=== PATIENT | male | born 1955 | race Caucasian/White ===

== ENCOUNTER 2016-03-08 11:19 | Emergency (ER) | payer MEDICAID, MEDICARE ==
[~2016-03-08] VITALS: Ht 167.6 cm; Wt 123.4 kg
[~2016-03-08 11:19] MED LIST: /MOXI40TA PO; ACET50TA PO; ADV100INH INH; ADV250INH INH; ALBU0.084 INH; ALBU0.63 INH; ALBU1.25 NEB; CIPR500T89 PO; DOCU10ELUD PO; DOXY75CA3 PO; FLAG500T PO; FLEX10TA2 PO; FURO40TA2 PO; GUAI100S7 PO; HYDR10SY2 PO; IPRA2IN INH; K-TA1TAB PO; LASI40TA PO; LEVA500T PO; MICR10CA PO; MIRA255PW PO; MIRA33504 PO; MOXI400IV PO; OMEP20CA3 PO; OXYGEN; PRED10TA PO; PRED10TA2 PO; PRIL20CA PO; PROA1AER INH; PROAAER IN; PROAAER INH; SYMB16INH INH; TUDO400A INH; TYLE325T5 PO; VENTAER INH; ZOFR20TA PO; ZOFR4TAB3 PO; [UNRECOGNIZED DRUG - CODE] PO; [UNRECOGNIZED DRUG - OTHER] PO
[2016-03-08 12:18] LABS: BASO % 0.5 % (0.0-1.0); EOS # 0.3 K/mm3 (0.0-0.50); EOS % 3.9 % (0.0-3.0); LARGE UNSTAINED CELL # 0.2 K/mm3 (0.0-0.4); LARGE UNSTAINED CELL % 2.4 % (0.0-4.0); LYMPH # 0.8 K/mm3 (1.5-4.5); LYMPH % 10.6 % (24.0-44.0); MEAN CORPUSCULAR HEMOGLOBIN 29.8 pg (27.0-33.0); MEAN CORPUSCULAR HGB CONC 32.6 g/dl (32.0-36.5); MEAN CORPUSCULAR VOLUME 91.6 fl (80.0-96.0); MONO # 0.5 K/mm3 (0.0-0.8); MONO % 7.2 % (0.0-5.0); NEUTROPHILS # 5.6 K/mm3 (1.8-7.7); NEUTROPHILS % 75.3 % (36.0-66.0); PLATELET COUNT, AUTOMATED 186 k/mm3 (150-450); RED CELL DISTRIBUTION WIDTH 14.1 % (11.5-14.5); WHITE BLOOD COUNT 7.5 K/mm3 (4.0-10.0)
--- NOTE | 2016-03-08 12:22 | REP ---
Chest one-view HISTORY: Shortness of breath Comparison: 11/12/2015 The lungs are clear. The heart is normal in size. The pulmonary vasculature is normal in appearance. Impression: No acute disease. Signed by James Gunderson MD 03/08/2016 12:13 P
[2016-03-08 12:35] LABS: ANION GAP 7 MEQ/L (8-16); BLOOD UREA NITROGEN 12 MG/DL (7-18); CALCIUM LEVEL 8.4 MG/DL (8.8-10.2); CARBON DIOXIDE LEVEL 31 MEQ/L (21-32); CHLORIDE LEVEL 101 MEQ/L (98-107); CREATININE FOR GFR 0.92 MG/DL (0.70-1.30); GLOMERULAR FILTRATION RATE > 60.0 (>49); GLUCOSE, FASTING 83 MG/DL (80-110); POTASSIUM SERUM 3.8 MEQ/L (3.5-5.1); SODIUM LEVEL 139 MEQ/L (136-145)
[2016-03-08] MEDS ORDERED: methylPREDNISolone INJ 125 MG/2 ML VIAL (J2930) As Ordered ONE (13:06)
[2016-03-08] MEDS ORDERED: hydrOXYzine INJ 50 MG/ML VIAL (J3410) IM ONE (13:15)
--- NOTE | 2016-03-08 14:05 | EDDOCDS ---
Nurse's Notes [facility] Name: Rafal Harper Age: 61 yrs Sex: Male : 1955 Arrival Date: 03/08/2016 Time: 11:19 Bed 1 Private MD: Hill Veliz FPA Diagnosis: Shortness of breath;Rash and other nonspecific skin eruption Presentation: 03/08 11:24 Presenting complaint: Patient states: Worsening SOB over the past two weeks with mlb1 productive cough, also reports itchy rash to arms and chest began three days ago. Onset: The symptoms/episode began/occurred gradually. Onset: The symptoms/episode began/occurred. This patient has not experienced a previous allergic reaction. Anaphylaxis evaluation, the patient reports or I have noted the following symptoms which indicate a significant risk of anaphylaxis: no signs or symptoms of anaphylaxis were noted. Adult Sepsis Screening: The patient does not have new or worsening altered mentation. Patient's respiratory rate is less than 22. Systolic blood pressure is greater than 100. Patient has a qSOFA score of 0- Negative Sepsis Screen. Suicide/Homicide risk assessment- the patient denies having any suicidal and/or homicidal ideations and does not present with any other emotional, behavioral or mental health complaints. Status: Patient is not a slot service specialist or dependent. Transition of care: patient was not received from another setting of care. 11:24 Acuity: JOSEPH Level 3 mlb1 11:24 Method Of Arrival: Walkin/Carried/Asstd mlb1 Triage Assessment: 11:28 General: Appears distressed, Behavior is appropriate for age, cooperative. Pain: Denies mlb1 pain. HIV screening NA for this visit Offered previously. Respiratory: Reports shortness of breath cough that is. Historical: - Allergies: PENICILLINS (Wheezing); seafood (difficulty breathing); eggs; - Home Meds: 1. ProAir HFA 90 mcg/actuation inhalation HFAA 2 puffs every 4 hours as needed 2. Spiriva with HandiHaler 18 mcg Inhl CpDv 1 cap once daily 3. furosemide 40 mg Oral tab 1 tab 2 times per day 4. potassium chloride 20 mEq Oral TbER 1 tab 2 times per day 5. Oxygen 2 liters continuous 6. Vitamin D3 2,000 unit oral tab 7. multivitamin Oral tab 1 tablet daily 8. flaxseed oil 1,000 mg oral cap daily - PMHx: Asthma; CHF; COPD; Diverticulitis; enlarged aorta; - PSHx: lymphnodes removed neck; - Social history: Smoking status: Patient states former smoker of tobacco. No barriers to communication noted, The patient speaks fluent Setswana, Speaks appropriately for age. - Family history: Not pertinent. - : The pt / caregiver states he / she is not on anticoagulants. Home medication list is obtained from the patient. - Exposure Risk Screening:: None identified. Screenin:26 Screening information is obtained from the patient. Fall risk: No risks identified. ck1 Assistance ADL's: requires no assistance with activities of daily living. Abuse/DV Screen: The patient / caregiver reports he/she is: not in a situation that causes fear, pain or injury. Nutritional screening: No deficits noted. Advance Directives: There is no active DNR order. home support is adequate. 12:46 Advance Directives: Currently, there is a health care proxy, Aditi Duran (daughter). ck1 Assessment: 12:15 General: Appears in no apparent distress, comfortable, obese, Behavior is appropriate ms18 for age, cooperative, pleasant. Neurological: Level of Consciousness is awake, alert, obeys commands, Oriented to person, place, time, Speech is normal. Cardiovascular: Rhythm is regular. Respiratory: Airway is patent Respiratory effort is even, unlabored. Derm: Skin is pink, warm & dry. 12:47 General: Appears in no apparent distress, comfortable, obese, Behavior is appropriate ck1 for age, cooperative. Pain: Denies pain. Neurological: Level of Consciousness is awake, alert, obeys commands, Oriented to person, place, time. Cardiovascular: Rhythm is sinus rhythm. Respiratory: Respiratory effort is unlabored, Respiratory pattern is regular, symmetrical, Breath sounds are diminished bilaterally. Respiratory: Reports cough that is productive. Derm: Skin is pink, warm & dry. 14:03 General: Appears in no apparent distress, comfortable, Behavior is appropriate for age, ck1 cooperative. Pain: Denies pain. Neurological: Level of Consciousness is awake, alert, obeys commands, Oriented to person, place, time. Cardiovascular: Rhythm is regular. Respiratory: Airway is patent Respiratory effort is even, unlabored, Respiratory pattern is regular, symmetrical. GI: No deficits noted. Derm: Skin is pink, warm & dry. Vital Signs: 11:20 BP 167 / 88; Pulse 102; Resp 24; Temp 97.6(O); Pulse Ox 92% on 2 lpm NC; Weight 123.38 elp kg (R); Height 5 ft. 6 in. (167.64 cm) (R); 11:33 BP 143 / 73 (auto/); ck1 11:38 Pulse 94 MON; Pulse Ox 95% ; ck1 11:45 BP 129 / 64 (auto/); ck1 11:47 Pulse 93 MON; Pulse Ox 93% ; ck1 12:00 BP 123 / 60 (auto/); ck1 12:00 Pulse 94 MON; Pulse Ox 94% ; ck1 12:15 BP 135 / 64 (auto/); ck1 12:15 Pulse 91 MON; Pulse Ox 94% ; ck1 12:29 Pulse 89 MON; Pulse Ox 94% ; ck1 12:30 BP 123 / 59 (auto/); ck1 12:45 BP 120 / 64 (auto/); ck1 12:45 Pulse 91 MON; Pulse Ox 95% ; ck1 13:00 BP 131 / 65 (auto/); ck1 13:00 Pulse 88 MON; Pulse Ox 93% ; ck1 13:15 BP 126 / 61 (auto/); ck1 13:15 Pulse 89 MON; Pulse Ox 93% ; ck1 13:30 BP 122 / 65 (auto/); ck1 13:30 Pulse 91 MON; Pulse Ox 95% ; ck1 13:45 BP 125 / 61 (auto/); ck1 13:45 Pulse 87 MON; Pulse Ox 94% ; ck1 14:01 BP 121 / 60; Pulse 94; Resp 22; Temp 96.8(O); Pulse Ox 94% on 2 lpm NC; Pain 0/10; ck1 11:20 Body Mass Index 43.90 (123.38 kg, 167.64 cm) [facility] Vitals: 11:20 Log In Time: March 08, 2016 at 11:18. [facility] ED Course: 11:20 Patient visited by Rosalva Avitia PCA. elp 11:20 Hill Veliz is Private Physician. elp 11:20 Patient moved to Waiting elp 11:21 Patient moved to 17 jrd 11:21 Patient moved to Waiting jrd 11:25 Triage Initiated mlb1 11:28 Patient visited by Hill Dhillon RN. mlb1 11:28 Patient moved to 1 mlb1 11:49 Patient visited by Aung Crawford PCA. jrd 11:49 EKG done. (by ED staff). Reviewed by Hill Veliz. jrd 12:02 -Blood Culture Sent. ms18 12:02 B-Type Natiuretic Peptide Sent. ms18 12:02 Basic Metabolic Profile Sent. ms18 12:02 CBC with Diff Sent. ms18 12:02 Troponin Sent. ms18 12:03 Nidia Ward MD is Attending Physician. fg 12:12 BLOOD CULTURES Sent. ms18 12:15 Inserted saline lock: 20 gauge in right and blood collected. The patient tolerated the ms18 procedure well. upper arm. 12:25 Patient visited by Noreen Eaton RN. ck1 12:26 The patient / caregiver is instructed regarding the plan of care and ED course. ck1 12:41 Patient visited by Nidia Ward MD. fg 12:43 Chest, 1 View Returned. EDMS 12:52 Patient name changed from Rafal\S\William\S\Leroy\S\ to Rafal\S\ \S\Leroy. EDMS 12:55 [facility] Payment Agreement was scanned into [employer]dig[employer] and attached to record. lg 13:18 Hill Veliz is Referral Physician. fg 14:02 Discontinued lock intact, bleeding controlled, pressure dressing applied, No ck1 redness/swelling at site. No procedures done that require assistance. Administered Medications: 13:10 Drug: Solu-MEDROL 125 mg [Solu-Medrol 500 mg intravenous solution (125 mg)] Route: IVP; dsf Site: right upper arm; 13:35 Drug: hydrOXYzine 50 mg [hydroxyzine HCl 50 mg/mL intramuscular solution (1 mL)] Route: dsf IM; Site: right deltoid; Order Results: Lab Order: B-Type Natiuretic Peptide; SPEC'M 03/08/16 11:59 Test: BRAIN NATRIURETIC PEPTIDE; Value: 29.7; Range: <100; Units: PG/ML; Status: F Lab Order: Basic Metabolic Profile; SPEC'M 03/08/16 11:59 Test: GLUCOSE, FASTING; Value: 83; Range: 80-110; Units: MG/DL; Status: F Test: BLOOD UREA NITROGEN; Value: 12; Range: 7-18; Units: MG/DL; Status: F Test: CREATININE FOR GFR; Value: 0.92; Range: 0.70-1.30; Units: MG/DL; Status: F Test: GLOMERULAR FILTRATION RATE; Value: > 60.0; Range: >49; Status: F Test: SODIUM LEVEL; Value: 139; Range: 136-145; Units: MEQ/L; Status: F Test: POTASSIUM SERUM; Value: 3.8; Range: 3.5-5.1; Units: MEQ/L; Status: F Test: CHLORIDE LEVEL; Value: 101; Range: 98-107; Units: MEQ/L; Status: F Test: CARBON DIOXIDE LEVEL; Value: 31; Range: 21-32; Units: MEQ/L; Status: F Test: ANION GAP; Value: 7; Range: 8-16; Abnormal: Below low normal; Units: MEQ/L; Status: F Test: CALCIUM LEVEL; Value: 8.4; Range: 8.8-10.2; Abnormal: Below low normal; Units: MG/DL; Status: F Test Note: ; Units are mL/min/1.73 m2 Chronic Kidney Disease Staging per NKF: Stage I & II GFR >=60 Normal to Mildly Decreased Stage III GFR 30-59 Moderately Decreased Stage IV GFR 15-29 Severely Decreased Stage V GFR <15 Very Little GFR Left ESRD GFR <15 on MILEAGE CLERK Lab Order: CBC with Diff; SPEC'M 03/08/16 11:59 Test: WHITE BLOOD COUNT; Value: 7.5; Range: 4.0-10.0; Units: K/mm3; Status: F Test: RED BLOOD COUNT; Value: 4.61; Range: 4.30-6.10; Units: M/mm3; Status: F Test: HEMOGLOBIN; Value: 13.7; Range: 14.0-18.0; Abnormal: Below low normal; Units: g/dl; Status: F Test: HEMATOCRIT; Value: 42.2; Range: 42.0-52.0; Units: %; Status: F Test: MEAN CORPUSCULAR VOLUME; Value: 91.6; Range: 80.0-96.0; Units: fl; Status: F Test: MEAN CORPUSCULAR HEMOGLOBIN; Value: 29.8; Range: 27.0-33.0; Units: pg; Status: F Test: MEAN CORPUSCULAR HGB CONC; Value: 32.6; Range: 32.0-36.5; Units: g/dl; Status: F Test: RED CELL DISTRIBUTION WIDTH; Value: 14.1; Range: 11.5-14.5; Units: %; Status: F Test: PLATELET COUNT, AUTOMATED; Value: 186; Range: 150-450; Units: k/mm3; Status: F Test: NEUTROPHILS %; Value: 75.3; Range: 36.0-66.0; Abnormal: Above high normal; Units: %; Status: F Test: LYMPH %; Value: 10.6; Range: 24.0-44.0; Abnormal: Below low normal; Units: %; Status: F Test: MONO %; Value: 7.2; Range: 0.0-5.0; Abnormal: Above high normal; Units: %; Status: F Test: EOS %; Value: 3.9; Range: 0.0-3.0; Abnormal: Above high normal; Units: %; Status: F Test: BASO %; Value: 0.5; Range: 0.0-1.0; Units: %; Status: F Test: LARGE UNSTAINED CELL %; Value: 2.4; Range: 0.0-4.0; Units: %; Status: F Test: NEUTROPHILS #; Value: 5.6; Range: 1.8-7.7; Units: K/mm3; Status: F Test: LYMPH #; Value: 0.8; Range: 1.5-4.5; Abnormal: Below low normal; Units: K/mm3; Status: F Test: MONO #; Value: 0.5; Range: 0.0-0.8; Units: K/mm3; Status: F Test: EOS #; Value: 0.3; Range: 0.0-0.50; Units: K/mm3; Status: F Test: BASO #; Value: 0.0; Range: 0.0-0.2; Units: K/mm3; Status: F Test: LARGE UNSTAINED CELL #; Value: 0.2; Range: 0.0-0.4; Units: K/mm3; Status: F Lab Order: Troponin; SPEC'M 03/08/16 11:59 Test: TROPONIN I; Value: < 0.02; Range: < 0.10; Units: NG/ML; Status: F Test Note: ; Troponin I Reference Interval for Spectrum5 LOCI: 99th Percentile= 0.00-0.045 ng/ml Risk Stratification: <= 0.10 ng/ml Decreased Risk for Adverse Clinical Events. 0.10-1.50 ng/ml Increased Risk for Adverse Clinical Events. Evaluation of additional criterion and/or repeat testing in 2-6 hours is suggested to rule out myocardial damage. >= 1.50 ng/ml Indicative of Myocardial Injury. Radiology Order: Chest, 1 View Test: Chest, 1 View REASON FOR EXAMINATION: Shortness of Breath; Chest one-view; ; HISTORY: Shortness of breath; ; Comparison: 11/12/2015; ; The lungs are clear. The heart is normal in size. The pulmonary vasculature is; normal in appearance.; ; Impression: No acute disease.; ; ; Signed by; James Gunderson MD 03/08/2016 12:13 P; Outcome: 13:18 Discharge ordered by Provider. fg 14:02 Discharge Assessment: Patient awake, alert and oriented x 3. No cognitive and/or ck1 functional deficits noted. Patient verbalized understanding of disposition instructions. patient administered narcotics - no. The following High Risk Discharge criteria are identified: None. Discharged to home ambulatory. Condition: stable. No special radiology studies were completed. Property :Personal belongings accompany Pt. 14:03 Patient left the ED. ck1 Signatures: Dispatcher [employer] EDLuciana Irizarry, Hill Rodarte lg, RN RN mlb1 Noreen Eaton RN RN ck1 Rani Cerrato RN RN dsf Patchen, Erin, CREDIT OFFICER CREDIT OFFICER Tracy Kraft RN RN ms18 Aung Crawford, CREDIT OFFICER CREDIT OFFICER Nidia Jacobo MD MD fg MTDD
--- NOTE | 2016-03-08 14:05 | EDDOCDS ---
Physician Documentation [facility] Name: Rafal Harper Age: 61 yrs Sex: Male : 1955 Arrival Date: 03/08/2016 Time: 11:19 Bed 1 Private MD: Hill Veliz FPA Disposition: 03/08/16 13:18 Discharged to Home/Self Care. Impression: Shortness of breath, Rash and other nonspecific skin eruption. - Condition is Stable. - Discharge Instructions: Rash, [id number]. - Prescriptions for Hydroxyzine HCl 25 mg Oral Tablet - take 1 tablet by ORAL route every 6 hours As needed; 12 tablet. Prednisone 20 mg Oral Tablet - take 3 tablet by ORAL route once daily for 5 days; 15 tablet. - Medication Reconciliation, Local Pharmacy Hours form. - Follow up: Hill Veliz; When: Call to arrange an appointment; Reason: Continuance of care. - Problem is new. - Symptoms have improved. Historical: - Allergies: PENICILLINS (Wheezing); seafood (difficulty breathing); eggs; - Home Meds: 1. ProAir HFA 90 mcg/actuation inhalation HFAA 2 puffs every 4 hours as needed 2. Spiriva with HandiHaler 18 mcg Inhl CpDv 1 cap once daily 3. furosemide 40 mg Oral tab 1 tab 2 times per day 4. potassium chloride 20 mEq Oral TbER 1 tab 2 times per day 5. Oxygen 2 liters continuous 6. Vitamin D3 2,000 unit oral tab 7. multivitamin Oral tab 1 tablet daily 8. flaxseed oil 1,000 mg oral cap daily - PMHx: Asthma; CHF; COPD; Diverticulitis; enlarged aorta; - PSHx: lymphnodes removed neck; - Social history: Smoking status: Patient states former smoker of tobacco. No barriers to communication noted, The patient speaks fluent Malian, Speaks appropriately for age. - Family history: Not pertinent. - : The pt / caregiver states he / she is not on anticoagulants. Home medication list is obtained from the patient. - Exposure Risk Screening:: None identified. Vital Signs: 03/08 11:20 BP 167 / 88; Pulse 102; Resp 24; Temp 97.6(O); Pulse Ox 92% on 2 lpm NC; Weight 123.38 elp kg / 272.01 lbs (R); Height 5 ft. 6 in. (167.64 cm) (R); 11:33 BP 143 / 73 (auto/); ck1 11:38 Pulse 94 MON; Pulse Ox 95% ; ck1 11:45 BP 129 / 64 (auto/); ck1 11:47 Pulse 93 MON; Pulse Ox 93% ; ck1 12:00 BP 123 / 60 (auto/); ck1 12:00 Pulse 94 MON; Pulse Ox 94% ; ck1 12:15 BP 135 / 64 (auto/); ck1 12:15 Pulse 91 MON; Pulse Ox 94% ; ck1 12:29 Pulse 89 MON; Pulse Ox 94% ; ck1 12:30 BP 123 / 59 (auto/); ck1 12:45 BP 120 / 64 (auto/); ck1 12:45 Pulse 91 MON; Pulse Ox 95% ; ck1 13:00 BP 131 / 65 (auto/); ck1 13:00 Pulse 88 MON; Pulse Ox 93% ; ck1 13:15 BP 126 / 61 (auto/); ck1 13:15 Pulse 89 MON; Pulse Ox 93% ; ck1 13:30 BP 122 / 65 (auto/); ck1 13:30 Pulse 91 MON; Pulse Ox 95% ; ck1 13:45 BP 125 / 61 (auto/); ck1 13:45 Pulse 87 MON; Pulse Ox 94% ; ck1 14:01 BP 121 / 60; Pulse 94; Resp 22; Temp 96.8(O); Pulse Ox 94% on 2 lpm NC; Pain 0/10; ck1 11:20 Body Mass Index 43.90 (123.38 kg, 167.64 cm) elp MDM: 11:41 -Blood Culture (Adults Only), peripheral from different site, or from device/port/PICC fg etc. if present ordered. 11:41 Experimental Worker/Pulse Ox/q 15 min VS ordered. fg 11:41 IV Saline Lock ordered. fg 11:41 Oxygen at 4L/Min NC or Home dosage ordered. fg 11:41 Rhythm Strip to chart ordered. fg 11:43 B-Type Natiuretic Peptide Ordered. EDMS 11:43 Basic Metabolic Profile Ordered. EDMS 11:43 CBC with Diff Ordered. EDMS 11:43 Troponin Ordered. EDMS 11:43 -Blood Culture Ordered. EDMS 11:44 Chest, 1 View Ordered. EDMS 11:44 ECG WITH READING ER PHYS+CARDIAG ordered. EDMS 11:53 -Blood Culture (Adults Only), peripheral from different site, or from device/port/PICC [facility] etc. if present complete. 11:54 BLOOD CULTURES Ordered. EDMS 12:54 Financial registration complete. lg 12:55 [facility] Payment Agreement was scanned into BISON and attached to record. lg 13:00 Solu-MEDROL 125 mg IVP once ordered. fg 13:00 hydrOXYzine 50 mg IM once ordered. fg Administered Medications: 13:10 Drug: Solu-MEDROL 125 mg [Solu-Medrol 500 mg intravenous solution (125 mg)] Route: IVP; dsf Site: right upper arm; 13:35 Drug: hydrOXYzine 50 mg [hydroxyzine HCl 50 mg/mL intramuscular solution (1 mL)] Route: dsf IM; Site: right deltoid; Signatures: Dispatcher [employer] EDMS Jennifer Cordero RN RN j Luciana Ernst, Jackson Paz Hill Dhillon RN RN mlb1 Noreen EatonRN RN ck1 Nidia Ward MD MD fg Fuller, Desiree RN dsf The chart was reviewed and I authenticate all verbal orders and agree with the evaluation and treatment provided.Attachments: 12:55 [facility] Payment Agreement lg MTDD
--- NOTE | 2016-03-09 06:46 | ECGEPIP ---
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
--- NOTE | 2016-03-10 15:04 | EDDOCDS ---
Nurse's Notes [facility] Name: Rafal Harper Age: 61 yrs Sex: Male : 1955 Arrival Date: 03/08/2016 Time: 11:19 Bed 1 Private MD: Hill Veliz FPA Diagnosis: Shortness of breath;Rash and other nonspecific skin eruption Presentation: 03/08 11:24 Presenting complaint: Patient states: Worsening SOB over the past two weeks with mlb1 productive cough, also reports itchy rash to arms and chest began three days ago. Onset: The symptoms/episode began/occurred gradually. Onset: The symptoms/episode began/occurred. This patient has not experienced a previous allergic reaction. Anaphylaxis evaluation, the patient reports or I have noted the following symptoms which indicate a significant risk of anaphylaxis: no signs or symptoms of anaphylaxis were noted. Adult Sepsis Screening: The patient does not have new or worsening altered mentation. Patient's respiratory rate is less than 22. Systolic blood pressure is greater than 100. Patient has a qSOFA score of 0- Negative Sepsis Screen. Suicide/Homicide risk assessment- the patient denies having any suicidal and/or homicidal ideations and does not present with any other emotional, behavioral or mental health complaints. Status: Patient is not a sales agent pest control service or dependent. Transition of care: patient was not received from another setting of care. 11:24 Acuity: JOSEPH Level 3 mlb1 11:24 Method Of Arrival: Walkin/Carried/Asstd mlb1 Triage Assessment: 11:28 General: Appears distressed, Behavior is appropriate for age, cooperative. Pain: Denies mlb1 pain. HIV screening NA for this visit Offered previously. Respiratory: Reports shortness of breath cough that is. Historical: - Allergies: PENICILLINS (Wheezing); seafood (difficulty breathing); eggs; - Home Meds: 1. ProAir HFA 90 mcg/actuation inhalation HFAA 2 puffs every 4 hours as needed 2. Spiriva with HandiHaler 18 mcg Inhl CpDv 1 cap once daily 3. furosemide 40 mg Oral tab 1 tab 2 times per day 4. potassium chloride 20 mEq Oral TbER 1 tab 2 times per day 5. Oxygen 2 liters continuous 6. Vitamin D3 2,000 unit oral tab 7. multivitamin Oral tab 1 tablet daily 8. flaxseed oil 1,000 mg oral cap daily - PMHx: Asthma; CHF; COPD; Diverticulitis; enlarged aorta; - PSHx: lymphnodes removed neck; - Social history: Smoking status: Patient states former smoker of tobacco. No barriers to communication noted, The patient speaks fluent Romanian, Speaks appropriately for age. - Family history: Not pertinent. - : The pt / caregiver states he / she is not on anticoagulants. Home medication list is obtained from the patient. - Exposure Risk Screening:: None identified. Screenin:26 Screening information is obtained from the patient. Fall risk: No risks identified. ck1 Assistance ADL's: requires no assistance with activities of daily living. Abuse/DV Screen: The patient / caregiver reports he/she is: not in a situation that causes fear, pain or injury. Nutritional screening: No deficits noted. Advance Directives: There is no active DNR order. home support is adequate. 12:46 Advance Directives: Currently, there is a health care proxy, Aditi Duran (daughter). ck1 Assessment: 12:15 General: Appears in no apparent distress, comfortable, obese, Behavior is appropriate ms18 for age, cooperative, pleasant. Neurological: Level of Consciousness is awake, alert, obeys commands, Oriented to person, place, time, Speech is normal. Cardiovascular: Rhythm is regular. Respiratory: Airway is patent Respiratory effort is even, unlabored. Derm: Skin is pink, warm & dry. 12:47 General: Appears in no apparent distress, comfortable, obese, Behavior is appropriate ck1 for age, cooperative. Pain: Denies pain. Neurological: Level of Consciousness is awake, alert, obeys commands, Oriented to person, place, time. Cardiovascular: Rhythm is sinus rhythm. Respiratory: Respiratory effort is unlabored, Respiratory pattern is regular, symmetrical, Breath sounds are diminished bilaterally. Respiratory: Reports cough that is productive. Derm: Skin is pink, warm & dry. 14:03 General: Appears in no apparent distress, comfortable, Behavior is appropriate for age, ck1 cooperative. Pain: Denies pain. Neurological: Level of Consciousness is awake, alert, obeys commands, Oriented to person, place, time. Cardiovascular: Rhythm is regular. Respiratory: Airway is patent Respiratory effort is even, unlabored, Respiratory pattern is regular, symmetrical. GI: No deficits noted. Derm: Skin is pink, warm & dry. Vital Signs: 11:20 BP 167 / 88; Pulse 102; Resp 24; Temp 97.6(O); Pulse Ox 92% on 2 lpm NC; Weight 123.38 elp kg (R); Height 5 ft. 6 in. (167.64 cm) (R); 11:33 BP 143 / 73 (auto/); ck1 11:38 Pulse 94 MON; Pulse Ox 95% ; ck1 11:45 BP 129 / 64 (auto/); ck1 11:47 Pulse 93 MON; Pulse Ox 93% ; ck1 12:00 BP 123 / 60 (auto/); ck1 12:00 Pulse 94 MON; Pulse Ox 94% ; ck1 12:15 BP 135 / 64 (auto/); ck1 12:15 Pulse 91 MON; Pulse Ox 94% ; ck1 12:29 Pulse 89 MON; Pulse Ox 94% ; ck1 12:30 BP 123 / 59 (auto/); ck1 12:45 BP 120 / 64 (auto/); ck1 12:45 Pulse 91 MON; Pulse Ox 95% ; ck1 13:00 BP 131 / 65 (auto/); ck1 13:00 Pulse 88 MON; Pulse Ox 93% ; ck1 13:15 BP 126 / 61 (auto/); ck1 13:15 Pulse 89 MON; Pulse Ox 93% ; ck1 13:30 BP 122 / 65 (auto/); ck1 13:30 Pulse 91 MON; Pulse Ox 95% ; ck1 13:45 BP 125 / 61 (auto/); ck1 13:45 Pulse 87 MON; Pulse Ox 94% ; ck1 14:01 BP 121 / 60; Pulse 94; Resp 22; Temp 96.8(O); Pulse Ox 94% on 2 lpm NC; Pain 0/10; ck1 11:20 Body Mass Index 43.90 (123.38 kg, 167.64 cm) [facility] Vitals: 11:20 Log In Time: March 08, 2016 at 11:18. [facility] ED Course: 11:20 Patient visited by Rosalva Avitia PCA. elp 11:20 Hill Veliz is Private Physician. elp 11:20 Patient moved to Waiting elp 11:21 Patient moved to 17 jrd 11:21 Patient moved to Waiting jrd 11:25 Triage Initiated mlb1 11:28 Patient visited by Hill Dhillon RN. mlb1 11:28 Patient moved to 1 mlb1 11:49 Patient visited by Aung Crawford PCA. jrd 11:49 EKG done. (by ED staff). Reviewed by Hill Veliz. jrd 12:02 -Blood Culture Sent. ms18 12:02 B-Type Natiuretic Peptide Sent. ms18 12:02 Basic Metabolic Profile Sent. ms18 12:02 CBC with Diff Sent. ms18 12:02 Troponin Sent. ms18 12:03 Nidia Ward MD is Attending Physician. fg 12:12 BLOOD CULTURES Sent. ms18 12:15 Inserted saline lock: 20 gauge in right and blood collected. The patient tolerated the ms18 procedure well. upper arm. 12:25 Patient visited by Noreen Eaton RN. ck1 12:26 The patient / caregiver is instructed regarding the plan of care and ED course. ck1 12:41 Patient visited by Nidia Ward MD. fg 12:43 Chest, 1 View Returned. EDMS 12:52 Patient name changed from Rafal\S\William\S\Leroy\S\ to Rafal\S\ \S\Leroy. EDMS 12:55 [facility] Payment Agreement was scanned into [employer] and attached to record. lg 13:18 Hill Veliz is Referral Physician. fg 14:02 Discontinued lock intact, bleeding controlled, pressure dressing applied, No ck1 redness/swelling at site. No procedures done that require assistance. 15:27 T-Sheet-- Draft Copy was scanned into [employer] and attached to record. gb 15:27 ECG/EKG was scanned into [employer] and attached to record. gb 03/09 06:53 EKG-ADULT Returned. EDMS Administered Medications: 03/08 13:10 Drug: Solu-MEDROL 125 mg [Solu-Medrol 500 mg intravenous solution (125 mg)] Route: IVP; dsf Site: right upper arm; 13:35 Drug: hydrOXYzine 50 mg [hydroxyzine HCl 50 mg/mL intramuscular solution (1 mL)] Route: dsf IM; Site: right deltoid; Order Results: Lab Order: -Blood Culture; SPEC'M 03/08/16 11:59 Test: BLOOD CULTURE; Value: No growth after 24 hours . All specimens observed; Status: F Test: BLOOD CULTURE; Value: for 5 days. Results final at that time.; Status: F Test: BLOOD CULTURE; Value: No Growth after 48 hours. All Specimens observed; Status: F Test: BLOOD CULTURE; Value: for 7 days. Results final at that time.; Status: F Lab Order: B-Type Natiuretic Peptide; SPEC'M 03/08/16 11:59 Test: BRAIN NATRIURETIC PEPTIDE; Value: 29.7; Range: <100; Units: PG/ML; Status: F Lab Order: Basic Metabolic Profile; SPEC'M 03/08/16 11:59 Test: GLUCOSE, FASTING; Value: 83; Range: 80-110; Units: MG/DL; Status: F Test: BLOOD UREA NITROGEN; Value: 12; Range: 7-18; Units: MG/DL; Status: F Test: CREATININE FOR GFR; Value: 0.92; Range: 0.70-1.30; Units: MG/DL; Status: F Test: GLOMERULAR FILTRATION RATE; Value: > 60.0; Range: >49; Status: F Test: SODIUM LEVEL; Value: 139; Range: 136-145; Units: MEQ/L; Status: F Test: POTASSIUM SERUM; Value: 3.8; Range: 3.5-5.1; Units: MEQ/L; Status: F Test: CHLORIDE LEVEL; Value: 101; Range: 98-107; Units: MEQ/L; Status: F Test: CARBON DIOXIDE LEVEL; Value: 31; Range: 21-32; Units: MEQ/L; Status: F Test: ANION GAP; Value: 7; Range: 8-16; Abnormal: Below low normal; Units: MEQ/L; Status: F Test: CALCIUM LEVEL; Value: 8.4; Range: 8.8-10.2; Abnormal: Below low normal; Units: MG/DL; Status: F Test Note: ; Units are mL/min/1.73 m2 Chronic Kidney Disease Staging per NKF: Stage I & II GFR >=60 Normal to Mildly Decreased Stage III GFR 30-59 Moderately Decreased Stage IV GFR 15-29 Severely Decreased Stage V GFR <15 Very Little GFR Left ESRD GFR <15 on RISK AND INSURANCE MANAGER Lab Order: CBC with Diff; SPEC'M 03/08/16 11:59 Test: WHITE BLOOD COUNT; Value: 7.5; Range: 4.0-10.0; Units: K/mm3; Status: F Test: RED BLOOD COUNT; Value: 4.61; Range: 4.30-6.10; Units: M/mm3; Status: F Test: HEMOGLOBIN; Value: 13.7; Range: 14.0-18.0; Abnormal: Below low normal; Units: g/dl; Status: F Test: HEMATOCRIT; Value: 42.2; Range: 42.0-52.0; Units: %; Status: F Test: MEAN CORPUSCULAR VOLUME; Value: 91.6; Range: 80.0-96.0; Units: fl; Status: F Test: MEAN CORPUSCULAR HEMOGLOBIN; Value: 29.8; Range: 27.0-33.0; Units: pg; Status: F Test: MEAN CORPUSCULAR HGB CONC; Value: 32.6; Range: 32.0-36.5; Units: g/dl; Status: F Test: RED CELL DISTRIBUTION WIDTH; Value: 14.1; Range: 11.5-14.5; Units: %; Status: F Test: PLATELET COUNT, AUTOMATED; Value: 186; Range: 150-450; Units: k/mm3; Status: F Test: NEUTROPHILS %; Value: 75.3; Range: 36.0-66.0; Abnormal: Above high normal; Units: %; Status: F Test: LYMPH %; Value: 10.6; Range: 24.0-44.0; Abnormal: Below low normal; Units: %; Status: F Test: MONO %; Value: 7.2; Range: 0.0-5.0; Abnormal: Above high normal; Units: %; Status: F Test: EOS %; Value: 3.9; Range: 0.0-3.0; Abnormal: Above high normal; Units: %; Status: F Test: BASO %; Value: 0.5; Range: 0.0-1.0; Units: %; Status: F Test: LARGE UNSTAINED CELL %; Value: 2.4; Range: 0.0-4.0; Units: %; Status: F Test: NEUTROPHILS #; Value: 5.6; Range: 1.8-7.7; Units: K/mm3; Status: F Test: LYMPH #; Value: 0.8; Range: 1.5-4.5; Abnormal: Below low normal; Units: K/mm3; Status: F Test: MONO #; Value: 0.5; Range: 0.0-0.8; Units: K/mm3; Status: F Test: EOS #; Value: 0.3; Range: 0.0-0.50; Units: K/mm3; Status: F Test: BASO #; Value: 0.0; Range: 0.0-0.2; Units: K/mm3; Status: F Test: LARGE UNSTAINED CELL #; Value: 0.2; Range: 0.0-0.4; Units: K/mm3; Status: F Lab Order: Troponin; SPEC'M 03/08/16 11:59 Test: TROPONIN I; Value: < 0.02; Range: < 0.10; Units: NG/ML; Status: F Test Note: ; Troponin I Reference Interval for [place] LOCI: 99th Percentile= 0.00-0.045 ng/ml Risk Stratification: <= 0.10 ng/ml Decreased Risk for Adverse Clinical Events. 0.10-1.50 ng/ml Increased Risk for Adverse Clinical Events. Evaluation of additional criterion and/or repeat testing in 2-6 hours is suggested to rule out myocardial damage. >= 1.50 ng/ml Indicative of Myocardial Injury. Lab Order: BLOOD CULTURES; SPEC'M 03/08/16 12:11 Test: BLOOD CULTURE; Value: No growth after 24 hours . All specimens observed; Status: F Test: BLOOD CULTURE; Value: for 5 days. Results final at that time.; Status: F Test: BLOOD CULTURE; Value: No Growth after 48 hours. All Specimens observed; Status: F Test: BLOOD CULTURE; Value: for 7 days. Results final at that time.; Status: F Radiology Order: Chest, 1 View Test: Chest, 1 View REASON FOR EXAMINATION: Shortness of Breath; Chest one-view; ; HISTORY: Shortness of breath; ; Comparison: 11/12/2015; ; The lungs are clear. The heart is normal in size. 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 fg 14:02 Discharge Assessment: Patient awake, alert and oriented x 3. No cognitive and/or ck1 functional deficits noted. Patient verbalized understanding of disposition instructions. patient administered narcotics - no. The following High Risk Discharge criteria are identified: None. Discharged to home ambulatory. Condition: stable. No special radiology studies were completed. Property :Personal belongings accompany Pt. 14:03 Patient left the ED. ck1 Signatures: Dispatcher [employer] EDMS Yvonne Webb, Reg Reg gb Luciana Ernst, Reg Reg lg Alejo, Hill Hess RN RN mlb1 Noreen EatonRN RN ck1 Rani CerratoRN Rosalva Hadley, AUTOMATION TESTER AUTOMATION TESTER Tracy Kraft RN RN ms18 Aung Crawford, AUTOMATION TESTER AUTOMATION TESTER Nidia Jacobo MD MD fg Chart Complete MTDD
--- NOTE | 2016-03-10 15:04 | EDDOCDS ---
Physician Documentation [facility] Name: Rafal Harper Age: 61 yrs Sex: Male : 1955 Arrival Date: 03/08/2016 Time: 11:19 Bed 1 Private MD: Hill Veliz FPA Disposition: 03/08/16 13:18 Discharged to Home/Self Care. Impression: Shortness of breath, Rash and other nonspecific skin eruption. - Condition is Stable. - Discharge Instructions: Rash, [id number]. - Prescriptions for Hydroxyzine HCl 25 mg Oral Tablet - take 1 tablet by ORAL route every 6 hours As needed; 12 tablet. Prednisone 20 mg Oral Tablet - take 3 tablet by ORAL route once daily for 5 days; 15 tablet. - Medication Reconciliation, Local Pharmacy Hours form. - Follow up: Hill Veliz; When: Call to arrange an appointment; Reason: Continuance of care. - Problem is new. - Symptoms have improved. Historical: - Allergies: PENICILLINS (Wheezing); seafood (difficulty breathing); eggs; - Home Meds: 1. ProAir HFA 90 mcg/actuation inhalation HFAA 2 puffs every 4 hours as needed 2. Spiriva with HandiHaler 18 mcg Inhl CpDv 1 cap once daily 3. furosemide 40 mg Oral tab 1 tab 2 times per day 4. potassium chloride 20 mEq Oral TbER 1 tab 2 times per day 5. Oxygen 2 liters continuous 6. Vitamin D3 2,000 unit oral tab 7. multivitamin Oral tab 1 tablet daily 8. flaxseed oil 1,000 mg oral cap daily - PMHx: Asthma; CHF; COPD; Diverticulitis; enlarged aorta; - PSHx: lymphnodes removed neck; - Social history: Smoking status: Patient states former smoker of tobacco. No barriers to communication noted, The patient speaks fluent Maltese, Speaks appropriately for age. - Family history: Not pertinent. - : The pt / caregiver states he / she is not on anticoagulants. Home medication list is obtained from the patient. - Exposure Risk Screening:: None identified. Vital Signs: 03/08 11:20 BP 167 / 88; Pulse 102; Resp 24; Temp 97.6(O); Pulse Ox 92% on 2 lpm NC; Weight 123.38 elp kg / 272.01 lbs (R); Height 5 ft. 6 in. (167.64 cm) (R); 11:33 BP 143 / 73 (auto/); ck1 11:38 Pulse 94 MON; Pulse Ox 95% ; ck1 11:45 BP 129 / 64 (auto/); ck1 11:47 Pulse 93 MON; Pulse Ox 93% ; ck1 12:00 BP 123 / 60 (auto/); ck1 12:00 Pulse 94 MON; Pulse Ox 94% ; ck1 12:15 BP 135 / 64 (auto/); ck1 12:15 Pulse 91 MON; Pulse Ox 94% ; ck1 12:29 Pulse 89 MON; Pulse Ox 94% ; ck1 12:30 BP 123 / 59 (auto/); ck1 12:45 BP 120 / 64 (auto/); ck1 12:45 Pulse 91 MON; Pulse Ox 95% ; ck1 13:00 BP 131 / 65 (auto/); ck1 13:00 Pulse 88 MON; Pulse Ox 93% ; ck1 13:15 BP 126 / 61 (auto/); ck1 13:15 Pulse 89 MON; Pulse Ox 93% ; ck1 13:30 BP 122 / 65 (auto/); ck1 13:30 Pulse 91 MON; Pulse Ox 95% ; ck1 13:45 BP 125 / 61 (auto/); ck1 13:45 Pulse 87 MON; Pulse Ox 94% ; ck1 14:01 BP 121 / 60; Pulse 94; Resp 22; Temp 96.8(O); Pulse Ox 94% on 2 lpm NC; Pain 0/10; ck1 11:20 Body Mass Index 43.90 (123.38 kg, 167.64 cm) elp MDM: 11:41 -Blood Culture (Adults Only), peripheral from different site, or from device/port/PICC fg etc. if present ordered. 11:41 Molder Closed Molds/Pulse Ox/q 15 min VS ordered. fg 11:41 IV Saline Lock ordered. fg 11:41 Oxygen at 4L/Min NC or Home dosage ordered. fg 11:41 Rhythm Strip to chart ordered. fg 11:43 B-Type Natiuretic Peptide Ordered. EDMS 11:43 Basic Metabolic Profile Ordered. EDMS 11:43 CBC with Diff Ordered. EDMS 11:43 Troponin Ordered. EDMS 11:43 -Blood Culture Ordered. EDMS 11:44 Chest, 1 View Ordered. EDMS 11:44 ECG WITH READING ER PHYS+CARDIAG ordered. EDMS 11:53 -Blood Culture (Adults Only), peripheral from different site, or from device/port/PICC [facility] etc. if present complete. 11:54 BLOOD CULTURES Ordered. EDMS 12:54 Financial registration complete. lg 12:55 [facility] Payment Agreement was scanned into MED[employer] and attached to record. lg 13:00 Solu-MEDROL 125 mg IVP once ordered. fg 13:00 hydrOXYzine 50 mg IM once ordered. fg 15:27 T-Sheet-- Draft Copy was scanned into MED[employer] and attached to record. gb 15:27 ECG/EKG was scanned into [employer] and attached to record. gb Administered Medications: 13:10 Drug: Solu-MEDROL 125 mg [Solu-Medrol 500 mg intravenous solution (125 mg)] Route: IVP; dsf Site: right upper arm; 13:35 Drug: hydrOXYzine 50 mg [hydroxyzine HCl 50 mg/mL intramuscular solution (1 mL)] Route: dsf IM; Site: right deltoid; Signatures: Dispatcher [employer] EDMS Jennifer Cordero, RN RN kpj Yvonne Webb, Reg Reg gb Luciana Ernst, Reg Reg Hill Singh RN RN mlb1 Noreen EatonRN RN ck1 Nidia Ward MD MD fg Fuller, Desiree RN dsf The chart was reviewed and I authenticate all verbal orders and agree with the evaluation and treatment provided.Attachments: 12:55 [facility] Payment Agreement lg 15:27 T-Sheet-- Draft Copy gb 15:27 ECG/EKG gb Chart Complete MTDD
--- NOTE | 2016-03-10 15:04 | EDDOCDS ---
Physician Documentation [facility] Name: Rafal Harper Age: 61 yrs Sex: Male : 1955 Arrival Date: 03/08/2016 Time: 11:19 Bed 1 Private MD: Hill Veliz FPA Disposition: 03/08/16 13:18 Discharged to Home/Self Care. Impression: Shortness of breath, Rash and other nonspecific skin eruption. - Condition is Stable. - Discharge Instructions: Rash, Mzbo-[id number]-Udsm. - Prescriptions for Hydroxyzine HCl 25 mg Oral Tablet - take 1 tablet by ORAL route every 6 hours As needed; 12 tablet. Prednisone 20 mg Oral Tablet - take 3 tablet by ORAL route once daily for 5 days; 15 tablet. - Medication Reconciliation, Local Pharmacy Hours form. - Follow up: Hill Veliz; When: Call to arrange an appointment; Reason: Continuance of care. - Problem is new. - Symptoms have improved. Historical: - Allergies: PENICILLINS (Wheezing); seafood (difficulty breathing); eggs; - Home Meds: 1. ProAir HFA 90 mcg/actuation inhalation HFAA 2 puffs every 4 hours as needed 2. Spiriva with HandiHaler 18 mcg Inhl CpDv 1 cap once daily 3. furosemide 40 mg Oral tab 1 tab 2 times per day 4. potassium chloride 20 mEq Oral TbER 1 tab 2 times per day 5. Oxygen 2 liters continuous 6. Vitamin D3 2,000 unit oral tab 7. multivitamin Oral tab 1 tablet daily 8. flaxseed oil 1,000 mg oral cap daily - PMHx: Asthma; CHF; COPD; Diverticulitis; enlarged aorta; - PSHx: lymphnodes removed neck; - Social history: Smoking status: Patient states former smoker of tobacco. No barriers to communication noted, The patient speaks fluent Ugandan, Speaks appropriately for age. - Family history: Not pertinent. - : The pt / caregiver states he / she is not on anticoagulants. Home medication list is obtained from the patient. - Exposure Risk Screening:: None identified. Vital Signs: 03/08 11:20 BP 167 / 88; Pulse 102; Resp 24; Temp 97.6(O); Pulse Ox 92% on 2 lpm NC; Weight 123.38 elp kg / 272.01 lbs (R); Height 5 ft. 6 in. (167.64 cm) (R); 11:33 BP 143 / 73 (auto/); ck1 11:38 Pulse 94 MON; Pulse Ox 95% ; ck1 11:45 BP 129 / 64 (auto/); ck1 11:47 Pulse 93 MON; Pulse Ox 93% ; ck1 12:00 BP 123 / 60 (auto/); ck1 12:00 Pulse 94 MON; Pulse Ox 94% ; ck1 12:15 BP 135 / 64 (auto/); ck1 12:15 Pulse 91 MON; Pulse Ox 94% ; ck1 12:29 Pulse 89 MON; Pulse Ox 94% ; ck1 12:30 BP 123 / 59 (auto/); ck1 12:45 BP 120 / 64 (auto/); ck1 12:45 Pulse 91 MON; Pulse Ox 95% ; ck1 13:00 BP 131 / 65 (auto/); ck1 13:00 Pulse 88 MON; Pulse Ox 93% ; ck1 13:15 BP 126 / 61 (auto/); ck1 13:15 Pulse 89 MON; Pulse Ox 93% ; ck1 13:30 BP 122 / 65 (auto/); ck1 13:30 Pulse 91 MON; Pulse Ox 95% ; ck1 13:45 BP 125 / 61 (auto/); ck1 13:45 Pulse 87 MON; Pulse Ox 94% ; ck1 14:01 BP 121 / 60; Pulse 94; Resp 22; Temp 96.8(O); Pulse Ox 94% on 2 lpm NC; Pain 0/10; ck1 11:20 Body Mass Index 43.90 (123.38 kg, 167.64 cm) elp MDM: 11:41 -Blood Culture (Adults Only), peripheral from different site, or from device/port/PICC fg etc. if present ordered. 11:41 Inweaver/Pulse Ox/q 15 min VS ordered. fg 11:41 IV Saline Lock ordered. fg 11:41 Oxygen at 4L/Min NC or Home dosage ordered. fg 11:41 Rhythm Strip to chart ordered. fg 11:43 B-Type Natiuretic Peptide Ordered. EDMS 11:43 Basic Metabolic Profile Ordered. EDMS 11:43 CBC with Diff Ordered. EDMS 11:43 Troponin Ordered. EDMS 11:43 -Blood Culture Ordered. EDMS 11:44 Chest, 1 View Ordered. EDMS 11:44 ECG WITH READING ER PHYS+CARDIAG ordered. EDMS 11:53 -Blood Culture (Adults Only), peripheral from different site, or from device/port/PICC [facility] etc. if present complete. 11:54 BLOOD CULTURES Ordered. EDMS 12:54 Financial registration complete. lg 12:55 [facility] Payment Agreement was scanned into MED[employer] and attached to record. lg 13:00 Solu-MEDROL 125 mg IVP once ordered. fg 13:00 hydrOXYzine 50 mg IM once ordered. fg 15:27 T-Sheet-- Draft Copy was scanned into MEDHOST and attached to record. gb 15:27 ECG/EKG was scanned into MED[employer] and attached to record. gb Administered Medications: 13:10 Drug: Solu-MEDROL 125 mg [Solu-Medrol 500 mg intravenous solution (125 mg)] Route: IVP; dsf Site: right upper arm; 13:35 Drug: hydrOXYzine 50 mg [hydroxyzine HCl 50 mg/mL intramuscular solution (1 mL)] Route: dsf IM; Site: right deltoid; Signatures: Dispatcher [employer] EDMS Jennifer Cordero, RN RN kpj Yvonne Webb, Reg Reg gb Luciana Ernst, Reg Reg Hill Singh RN RN mlb1 Noreen EatonRN RN ck1 Nidia Ward MD MD fg Fuller, Desiree RN dsf The chart was reviewed and I authenticate all verbal orders and agree with the evaluation and treatment provided.Attachments: 12:55 [facility] Payment Agreement lg 15:27 T-Sheet-- Draft Copy gb 15:27 ECG/EKG gb Chart Complete MTDD
== END 2016-03-08 14:03 | disposition home or self-care (01) ==
LOC: M ED 11:19
DX: R06.02 Shortness of breath (principal); L50.9 Urticaria, unspecified; I45.19 Other right bundle-branch block; I50.9 Heart failure, unspecified; J44.9 Chronic obstructive pulmonary disease, unspecified; Z87.19 Personal history of other diseases of the digestive system; Z79.899 Other long term (current) drug therapy; Z99.81 Dependence on supplemental oxygen; Z91.012 Allergy to eggs; Z91.013 Allergy to seafood; Z88.0 Allergy status to penicillin; Z87.891 Personal history of nicotine dependence
CPT/HCPCS: 36415; 71010; 80048; 83880; 84484; 85025; 87040; 93005; 93041; 96372; 96374; 99284; J2930; J3410

== ENCOUNTER → 2016-05-11 | Outpatient (CLI) | payer MEDICARE ==
[~2016-05-11] MED LIST changes: +ISOVUE-370 76% 100ML VIAL (Q9967) As Ordered ONE
--- NOTE | 2016-05-11 09:40 | REP ---
MAXILLOFACIAL CT WITH CONTRAST: HISTORY: Left thyroid mass. Contrast: Isovue 70, 75 mL. The sinuses are clear. The osteomeatal units are patent. The middle and inferior nasal turbinates are partially paradoxical. There is graciela bullosa of the middle nasal turbinates. There is mild deviation of the nasal septum to the right. The cribriform plate, medial iraheta of the orbits and optic canals are intact. The carotid canals form a segment of the posterolateral iraheta of the sphenoid sinus. The naso-, shahana- and hypopharynx are normal in appearance. The salivary glands are normal in density. IMPRESSION: 1. There is no acute or chronic sinusitis. 2. There is no neck mass or adenopathy. Signed by James Gunderson MD 05/11/2016 09:41 [facility]
== END ==
LOC: M RAD 08:47
PROVIDERS: ATTEND Surgery
DX: D37.030 Neoplasm of uncertain behavior of the parotid salivary glands (principal)
CPT/HCPCS: 70487; Q9967

== ENCOUNTER 2016-05-31 07:22 | Emergency (ER) | payer MEDICARE ==
[~2016-05-31] VITALS: Ht 167.6 cm; Wt 129.3 kg
[~2016-05-31 07:22] MED LIST changes: -ISOVUE-370 76% 100ML VIAL (Q9967) As Ordered ONE
[2016-05-31] MEDS ORDERED: IPRATROPIUM 0.5MG/ALBUTEROL 2.5MG INH SOL UD 3ML (DUONEB)(J7620) NEB PRN (07:45)
[2016-05-31] MEDS ORDERED: methylPREDNISolone INJ 125 MG/2 ML VIAL (J2930) IV ONE (07:45)
[2016-05-31] MEDS ORDERED: MULT1TAB8 PO (07:50)
[2016-05-31] MEDS ORDERED: FLAX100024 PO (07:50)
[2016-05-31] MEDS ORDERED: VITA2000 PO (07:50)
[2016-05-31] MEDS ORDERED: PRED10TA PO (07:50)
[2016-05-31] MEDS ORDERED: FURO40TA2 PO (07:50)
--- NOTE | 2016-05-31 09:20 | REP ---
Chest x-ray: Two views. History: Dyspnea and cough. Comparison chest x-ray is from March 08, 2016. Findings: EKG monitoring electrodes overlie the chest along with oxygen delivery tubing. The lungs are symmetrically aerated and free of infiltrate. There are areas of pleural plaquing bilaterally. No pleural effusion is seen. Cardiomediastinal silhouette is unremarkable. Pulmonary vasculature is not increased. Impression: No active disease. Signed by Alf Morales MD 05/31/2016 01:38 P
[2016-05-31 10:10] LABS: BASO % 0.4 % (0.0-1.0); EOS # 0.1 K/mm3 (0.0-0.50); EOS % 0.8 % (0.0-3.0); LARGE UNSTAINED CELL # 0.1 K/mm3 (0.0-0.4); LARGE UNSTAINED CELL % 0.9 % (0.0-4.0); LYMPH # 0.3 K/mm3 (1.5-4.5); LYMPH % 2.5 % (24.0-44.0); MEAN CORPUSCULAR HEMOGLOBIN 28.9 pg (27.0-33.0); MEAN CORPUSCULAR HGB CONC 30.9 g/dl (32.0-36.5); MEAN CORPUSCULAR VOLUME 93.6 fl (80.0-96.0); MONO # 0.5 K/mm3 (0.0-0.8); MONO % 5.4 % (0.0-5.0); PLATELET COUNT, AUTOMATED 145 k/mm3 (150-450); RED CELL DISTRIBUTION WIDTH 14.9 % (11.5-14.5)
[2016-05-31 10:14] LABS: ALBUMIN 3.4 GM/DL (3.2-5.2); ALBUMIN/GLOBULIN RATIO 1.06 (1.00-1.93); ALT/SGPT 50 U/L (12-78); ANION GAP 8 MEQ/L (8-16); AST/SGOT 39 U/L (15-37); BILIRUBIN,DIRECT 0.1 MG/DL (0.0-0.2); BILIRUBIN,TOTAL 0.6 MG/DL (0.2-1.0); BLOOD UREA NITROGEN 24 MG/DL (7-18); CALCIUM LEVEL 8.4 MG/DL (8.8-10.2); CARBON DIOXIDE LEVEL 30 MEQ/L (21-32); CHLORIDE LEVEL 103 MEQ/L (98-107); CREATININE FOR GFR 0.93 MG/DL (0.70-1.30); GLOMERULAR FILTRATION RATE > 60.0 (>49); GLUCOSE, FASTING 90 MG/DL (80-110); POTASSIUM SERUM 4.7 MEQ/L (3.5-5.1); SODIUM LEVEL 141 MEQ/L (136-145); TOTAL PROTEIN 6.6 GM/DL (6.4-8.2)
[2016-05-31 10:19] LABS: ALKALINE PHOSPHATASE 84 U/L (45-117)
[2016-05-31] MEDS ORDERED: PRED20TA PO (12:23)
[2016-05-31 12:24] VITALS: BP 133/66
[2016-05-31] MEDS ORDERED: ALBU83IN INH (12:25)
[2016-05-31] MEDS ORDERED: IPRA2IN INH (12:27)
--- NOTE | 2016-05-31 21:01 | ECGEPIP ---
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
== END 2016-05-31 13:19 | disposition home or self-care (01) ==
LOC: EDBD 07:22 → M ED 08:09
DX: J44.1 Chronic obstructive pulmonary disease with (acute) exacerbation (principal); Z87.891 Personal history of nicotine dependence; I50.9 Heart failure, unspecified; G47.33 Obstructive sleep apnea (adult) (pediatric); Z91.19 Patient's noncompliance with other medical treatment and regimen; N40.0 Benign prostatic hyperplasia without lower urinary tract symptoms; Z79.52 Long term (current) use of systemic steroids; Z92.240 Personal history of inhaled steroid therapy
CPT/HCPCS: 36415; 71020; 80048; 80076; 82550; 82553; 83605; 83880; 84443; 84484; 85025; 87040; 87804; 93005; 93041; 94760; 96374; 99284; J2930

== ENCOUNTER 2016-08-25 15:21 | Inpatient (IN) | payer MEDICARE, MEDICAID ==
[~2016-08-25] VITALS: Ht 167.6 cm; Wt 127.2 kg
[~2016-08-25 15:21] MED LIST changes: +ALBU83IN INH; +CIPR-249 PO; +FLAX100024 PO; +LEVA1TAB2 PO; -LEVA500T PO; +MULT1TAB8 PO; +PRED20TA PO; -PROA1AER INH; +PROAAER10 INH; +VITA2000 PO
[2016-08-25] MEDS ORDERED: IPRATROPIUM 0.5MG/ALBUTEROL 2.5MG INH SOL UD 3ML (DUONEB)(J7620) NEB ONE ×3 (15:45→20:45)
[2016-08-25] MEDS ORDERED: methylPREDNISolone INJ 125 MG/2 ML VIAL (J2930) IV ONE (15:45)
[2016-08-25 16:19] LABS: ABG BASE EXCESS 3.5 (-2.0-2.0); ABG HCO3 28.5 MEQ/L (22.0-26.0); ABG PARTIAL PRESSURE CO2 44.5 mmHg (35.0-45.0); ABG PARTIAL PRESSURE O2 51.7 mmHg (75.0-100.0); ABG STANDARD HCO3 27.3 MEQ/L (22.0-26.0); ABG TOTAL CO2 29.8 MEQ/L (23.0-31.0); ABG pH (ARTERIAL) 7.424 UNITS (7.350-7.450)
[2016-08-25 16:30] LABS: BASO # 0.1 K/mm3 (0.0-0.2); BASO % 0.6 % (0.0-1.0); EOS # 0.3 K/mm3 (0.0-0.50); EOS % 2.1 % (0.0-3.0); LARGE UNSTAINED CELL # 0.3 K/mm3 (0.0-0.4); LARGE UNSTAINED CELL % 1.9 % (0.0-4.0); LYMPH # 1.8 K/mm3 (1.5-4.5); LYMPH % 12.3 % (24.0-44.0); MEAN CORPUSCULAR HEMOGLOBIN 30.7 pg (27.0-33.0); MEAN CORPUSCULAR VOLUME 93.1 fl (80.0-96.0); MONO # 0.7 K/mm3 (0.0-0.8); MONO % 5.6 % (0.0-5.0); NEUTROPHILS # 9.9 K/mm3 (1.8-7.7); NEUTROPHILS % 77.5 % (36.0-66.0); PLATELET COUNT, AUTOMATED 229 k/mm3 (150-450); RED CELL DISTRIBUTION WIDTH 14.3 % (11.5-14.5); WHITE BLOOD COUNT 12.8 K/mm3 (4.0-10.0)
[2016-08-25 16:46] LABS: ALBUMIN 3.3 GM/DL (3.2-5.2); ALBUMIN/GLOBULIN RATIO 0.94 (1.00-1.93); BILIRUBIN,DIRECT 0.2 MG/DL (0.0-0.2); BILIRUBIN,TOTAL 0.5 MG/DL (0.2-1.0); TOTAL PROTEIN 6.8 GM/DL (6.4-8.2)
[2016-08-25 16:48] LABS: ANION GAP 9 MEQ/L (8-16); BLOOD UREA NITROGEN 12 MG/DL (7-18); CALCIUM LEVEL 8.9 MG/DL (8.8-10.2); CARBON DIOXIDE LEVEL 29 MEQ/L (21-32); CHLORIDE LEVEL 102 MEQ/L (98-107); CREATININE FOR GFR 0.94 MG/DL (0.70-1.30); GLOMERULAR FILTRATION RATE > 60.0 (>49); GLUCOSE, FASTING 94 MG/DL (80-110); POTASSIUM SERUM 3.7 MEQ/L (3.5-5.1); SODIUM LEVEL 140 MEQ/L (136-145)
--- NOTE | 2016-08-25 17:48 | REP ---
Portable chest x-ray: Single view: History: Dyspnea and cough. Comparison chest x-ray . Findings: The lungs are symmetrically aerated and free of infiltrate. Pleural angles are sharp. There is hazy somewhat nodular opacity in the left base question pulmonary nodule. Consider chest CT. Lung patterson are otherwise clear. Heart is not enlarged. Pulmonary vasculature is not increased. No significant bony abnormality is seen. Impression: Hazy opacity in the left base laterally question pulmonary nodule. Consider chest CT. Otherwise no acute disease. Signed by Alf Morales MD 08/27/2016 07:33 A
[2016-08-25] MEDS ORDERED: DOXYCYCLINE HYCLATE 100 MG in D5W MINI-BAG PLUS 100 ML IV ONE (19:00)
[2016-08-25] MEDS ORDERED: ISOVUE-370 76% 100ML VIAL (Q9967) As Ordered ONE (19:48)
[2016-08-25] MEDS ORDERED: dexameTHASONE 20 MG/5 ML VIAL (J1100) IV ONE (20:45)
--- NOTE | 2016-08-25 21:38 | ECGEPIP ---
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
--- NOTE | 2016-08-25 22:00 | REPUSA ---
CLINICAL HISTORY: SOB, PRODUCTIVE SPUTUM, L BASE OPACITY ON CXR TECHNIQUE: Multiple incremental axial, coronal and oblique images are obtained from the thoracic inle t to the upper abdomen. Intravenous contrast material was administered as per pulmonary embolism prot ocol. COMMENTS: There is excellent opacification of pulmonary arterial system without evidence for pulmonary embolism . Aorta is of normal caliber without evidence for dissection or aneurysm. Scarring is noted in the right middle lobe and lingula. Mild biapical emphysema is seen. There is no evidence of pleural or parenchymal mass. There are no pleural effusions. There is no evid ence of hilar or mediastinal lymphadenopathy. The heart and great vessels are within normal limits. Images of the upper abdomen demonstrate no evidence of adrenal mass. The bony structures are free of lytic or blastic lesions. Multilevel degenerative changes are seen in volving the visualized thoracolumbar spine. Scattered calcifications are seen involving the aorta and major branches compatible with atherosclero sis. IMPRESSION: No evidence for pulmonary embolism. Emhysema. Thank you for your kind referral of this patient.
[2016-08-25] MEDS ORDERED: VITMTA PO (23:22)
[2016-08-25] MEDS ORDERED: IPRA2IN INH (23:24)
[2016-08-25] MEDS ORDERED: POTA20TA6 PO (23:24)
[2016-08-25] MEDS ORDERED: ALBU83IN INH (23:24)
[2016-08-26] MEDS ORDERED: ACETAMINOPHEN TAB 650MG DOSE (2X325MG) PO PRN (00:15)
[2016-08-26] MEDS ORDERED: ONDANSETRON 4MG/2ML VIAL (J2405) IV PRN (00:15)
[2016-08-26] MEDS ORDERED: IPRATROPIUM 0.5MG/ALBUTEROL 2.5MG INH SOL UD 3ML (DUONEB)(J7620) NEB PRN (00:15)
--- NOTE | 2016-08-26 00:29 | HPEPDOC ---
General Date of Admission Aug 26, 2016 at 00:04 Other Providers PCP: Ramsey Veliz at [facility] Attending Physician: JOSEPHINE THOMAS MD Chief Complaint The patient is a 61-year-old male admitted with a reason for visit of Copd Exacerbation. Source: Patient Exam Limitations: No limitations History of Present Illness Mr. Harper is a 61-year-old male who presented to the emergency department with worsening shortness of breath. He states that he began feeling short of breath yesterday evening, he was not doing anything particular at the time, he was just watching TV. He had taken a few of his rescue inhalers, and he is on home oxygen therapy. He went to sleep at approximately midnight, and awoke at 3 AM with shortness of breath, he attempted to go back to sleep for a few hours, but felt that he needed further evaluation therefore he called EMS and was brought into the emergency department. He has been coughing up greenish yellow sputum for the past day. He does not think he has had any fevers, but he was soaking the bed sheets in sweat last night, and he continues to be diaphoretic in the ED. He also did have some chills last night. No reported weight loss. He does feel slightly better after the administration of steroids and nebulizers here in the ED, but definitely not well enough to go home. Home Medications Scheduled Budesonide/Formoterol (Symbicort 160-4.5 Mcg/Act) 60 Puff/Inhaler Aers, 2 PUFFS INH BID, (Reported) Cholecalciferol (Vitamin D3) 2,000 Unit Cap, 2,000 UNIT PO DAILY, (Reported) Furosemide (Furosemide) 40 Mg Tab, 40 MG PO BID, (Reported) Multivitamins *[facility] STOCKED* (Thera M Plus *[facility] STOCKED*) 1 Tab Tab, 1 TAB PO DAILY, (Reported) Omeprazole (Omeprazole) 20 Mg Cap, 20 MG PO DAILY, (Reported) Potassium Chloride (Potassium Chloride ER) 20 Meq Tab, 20 MEQ PO BID, (Reported) Scheduled PRN Albuterol Sulfate (Proair Hfa) 108 Mcg/Act Aer, 1 PUFF INH Q4H PRN for SOB/ WHEEZING, (Reported) Albuterol Sulfate (Albuterol Sulfate) 2.5 Mg/3 Ml Nebu, 1 VIAL INH Q4H PRN for SHORTNESS OF BREATH, (Reported) Ipratropium [place] (Ipratropium [place]) 0.5 Mg/2.5 Ml Soln, 1 VIAL INH Q4H PRN for SHORTNESS OF BREATH, (Reported) Allergies Coded Allergies: Penicillins (Verified Allergy, Severe, ANAPHYLAXIS, 05/14/12) Penicillins Cross Reactors (Verified Allergy, Severe, ANAPHYLAXIS, 05/14/12) SEAFOOD (Verified Allergy, Severe, DIFFICULTY BREATHING, 05/31/16) Eggs or Egg-derived Products (Verified Allergy, Unknown, 04/24/14) Past Medical History Medical History Eczema/psoriasis CHF diastolic dysfunction grade 1. Last echocardiogram in [facility] was 2013 Diverticulosis COPD Emphysema Surgical History Arthroscopic surgery of bilateral knees Family History Significant Family History: No pertinent family hx Social History * Smoker: former Smoker (he quit smoking about 4-5 years ago after having smoked 1-3 packs per day for 42 years) Alcohol: occationally (he used to drink heavily but quit in the , now he only has an occasional drink) Drugs: denies Recent Travel/Sick Contacts: Denies: Recent travel, Recent sick contacts Psychosocial History: No pertinent psych hx Review of Symptoms Constitutional: Reports: Chills, Night Sweats, Fatigue, Denies: Fever Eyes: Denies: Pain, Vision change ENT: Denies: Head Aches, Ear Pain, Dysphagia Skin: Denies: Rash, Lesions, Breakdown Pulmonary: Reports: Dyspnea, Cough, Denies: Pleuritic Chest Pain Cardiovascular: Denies: Chest Pain, Palpitations, Orthopnea, Paroxysmal Noc. Dyspnea, Edema, Lt Headedness Gastrointestinal: Denies: Nausea, Vomiting, Abdominal Pain, Diarrhea, Constipation Genitourinary: Denies: Dysuria, Frequency, Retention Hematologic: Denies: Bruising, Bleeding Excessively Neurological: Denies: Weakness, Numbness, Change in speech, Confusion Psych: Reports: Mood Normal, Denies: Depression, Memory Issues Physical Examination General Exam: Positive: Alert, Cooperative, Moderate Distress Eye Exam: Positive: Conjunctiva & lids normal, EOMI, Negative: Sclera icteric ENT Exam: Positive: Atraumatic, Mucous membr. moist/pink, Pharynx Normal Neck Exam: Positive: Supple, Negative: JVD, thyromegaly Chest Exam: Positive: Wheezing (expiratory wheezes throughout), Diminished Heart Exam: Positive: Rate Normal, Regular Rhythm, Other (distant heart sounds make auscultation difficult), Negative: Murmurs, Rubs Telemetry: Positive: No significant arrhythmia Abdomen Exam: Positive: Normal bowel sounds, Soft, Negative: Tenderness, Hepatospenomegaly Extremity Exam: Positive: Normal pulses, Negative: Clubbing, Cyanosis, Edema Skin Exam: Positive: Nl turgor and temperature, Negative: Breakdown, Lesion Neuro Exam: Positive: Normal Speech, Cranial Nerves 3-12 NL Psych Exam: Positive: Mental status NL, Mood NL, Oriented x 3 Vital Signs Vital Signs Date Time Temp Pulse Resp B/P (MAP) Pulse Ox O2 Delivery O2 Flow Rate FiO2 08/25/16 18:40 100 133/65 (87) 93 08/25/16 16:00 Nasal Cannula 2.0 08/25/16 15:39 98.9 22 Laboratory Data Labs 24H Laboratory Tests 2 08/25/16 15:55: White Blood Count 12.8H, Red Blood Count 4.41, Hemoglobin 13.5L, Hematocrit 41.0L, Mean Corpuscular Volume 93.1, Mean Corpuscular Hemoglobin 30.7, Mean Corpuscular Hemoglobin Concent 33.0, Red Cell Distribution Width 14.3, Platelet Count 229, Neutrophils (%) (Auto) 77.5H, Lymphocytes (%) (Auto) 12.3L, Monocytes (%) (Auto) 5.6H, Eosinophils (%) (Auto) 2.1, Basophils (%) (Auto) 0.6 , Neutrophils # (Auto) 9.9H, Lymphocytes # (Auto) 1.8, Monocytes # (Auto) 0.7, Eosinophils # (Auto) 0.3, Basophils # (Auto) 0.1, Large Unclassified Cells % 1.9 , Large Unclassified Cells # 0.3, Anion Gap 9, Glomerular Filtration Rate > 60.0 , Lactic Acid Level 1.4, Blood Urea Nitrogen 12, Creatinine 0.94, Sodium Level 140, Potassium Level 3.7, Chloride Level 102, Carbon Dioxide Level 29, Calcium Level 8.9, Total Creatine Kinase 136, Aspartate Amino Transf (AST/SGOT) 16, Alanine Aminotransferase (ALT/SGPT) 24, Alkaline Phosphatase 102, Total Bilirubin 0.5, Direct Bilirubin 0.2, Creatine Kinase MB 3.7H, Creatine Kinase MB Relative Index 2.72, Troponin I < 0.02, C-Reactive Protein, Quantitative 12.40H, B-Type Natriuretic Peptide 42.8, Total Protein 6.8, Albumin 3.3, Albumin /Globulin Ratio 0.94L 08/25/16 16:07: Blood Gas Bicarbonate Standard 27.3H, Arterial Blood pH 7.424, Arterial Blood Partial Pressure CO2 44.5, Arterial Blood Partial Pressure O2 51.7L, Arterial Blood Total CO2 29.8, Arterial Blood HCO3 28.5H, Arterial Blood Base Excess 3.5H , Arterial Blood Oxygen Saturation 86.3L CBC/BMP Laboratory Tests 08/25/16 15:55 Red Blood Count 4.41, Mean Corpuscular Volume 93.1, Mean Corpuscular Hemoglobin 30.7, Mean Corpuscular Hemoglobin Concent 33.0, Red Cell Distribution Width 14.3 , Neutrophils (%) (Auto) 77.5 H, Lymphocytes (%) (Auto) 12.3 L, Monocytes (%) ( Auto) 5.6 H, Eosinophils (%) (Auto) 2.1, Basophils (%) (Auto) 0.6, Neutrophils # (Auto) 9.9 H, Lymphocytes # (Auto) 1.8, Monocytes # (Auto) 0.7, Eosinophils # (Auto) 0.3, Basophils # (Auto) 0.1, Calcium Level 8.9, Total Creatine Kinase 136 Microbiology Microbiology 08/25/16 Blood Culture, Received Pending 08/25/16 Gram Stain, Received Pending 08/25/16 Sputum Culture, Received Pending Problems (1) COPD exacerbation Status: Acute (2) COPD (chronic obstructive pulmonary disease) Status: Chronic (3) Emphysema lung Status: Chronic (4) Diastolic congestive heart failure Status: Chronic (5) Diverticulosis Status: Chronic (6) Psoriasis Status: Chronic Plan / VTE VTE Prophylaxis Ordered?: Yes (heparin) Plan Plan Will admit the patient for acute exacerbation of COPD. He was given a dose of Decadron as well as methylprednisolone in the ED, as well as nebulizers. We'll start him on when necessary and scheduled nebulizers while inpatient, as well as scheduled Solu-Medrol 60 mg every 8 hours. For symptomatic relief we'll also provide him with guaifenesin as well as Tessalon Perles. In investigating for an infectious etiology of his acute exacerbation blood and sputum cultures will be collected, and he will also be sent for respiratory panel. He was restarted on moxifloxacin for an empiric antibiotic. Although his EKG is unchanged from prior, we will check another cardiac marker panel just to be safe. We'll trend daily labs as well as CRP. He is normally on oxygen at home, and titration orders have been put in, and we have requested that respiratory therapy provide him with an acappella to help clear the mucus. Otherwise, we will continue with his usual home dose of Symbicort, vitamin D, Lasix, multivitamin, PPI, and potassium supplement for his chronic conditions. GME ATTESTATION GME ATTESTATION My preceptor for this patient encounter was physically present in the building during the encounter and was fully available. As needed, all aspects of the patient interview, examination, medical decision making process, and medical care plan development were reviewed and approved by the preceptor. Preceptor is aware and concurs with the plan as stated in the body of this note and will attest to such by his/her cosignature. ATTENDING NOTE I have both independently examined this patient as well as reviewed the H&P. I have discussed in detail with the resident the findings and plan of treatment as documented in the residents note. I will continue to follow the patient and offer further guidance to the patients care as necessary during this hospital stay. FAIZA Doherty MD, DO Aug 26, 2016 00:29 JOSEPHINE THOMAS MD Aug 26, 2016 18:38
[2016-08-26 02:45] VITALS: BP 183/86
[2016-08-26] MEDS ORDERED: IPRATROPIUM 0.5MG/ALBUTEROL 2.5MG INH SOL UD 3ML (DUONEB)(J7620) As Ordered ONE (02:50)
[2016-08-26] MEDS: IPRATROPIUM 0.5MG/ALBUTEROL 2.5MG INH SOL UD 3ML (DUONEB)(J7620) NEB SCH ×4 (02:57→19:39)
[2016-08-26] MEDS: BENZONATATE 100 MG CAP PO SCH ×4 (03:30→21:45)
[2016-08-26] MEDS: MOXIFLOXACIN HCL 400 MG in APPROPRIATE DILUENT 1 EA IV SCH (03:30)
[2016-08-26] MEDS: methylPREDNISolone INJ 125 MG/2 ML VIAL (J2930) IV SCH ×3 (03:30→16:37)
[2016-08-26] MEDS: HEPARIN SOD (PORCINE) 5000 UNITS/ML VIAL SC SCH ×3 (05:11→21:47)
[2016-08-26 06:00] VITALS: BP 138/80
[2016-08-26 06:31] LABS: MEAN CORPUSCULAR HEMOGLOBIN 30.1 pg (27.0-33.0); MEAN CORPUSCULAR HGB CONC 32.1 g/dl (32.0-36.5); MEAN CORPUSCULAR VOLUME 93.8 fl (80.0-96.0); RED CELL DISTRIBUTION WIDTH 14.3 % (11.5-14.5); WHITE BLOOD COUNT 14.7 K/mm3 (4.0-10.0)
[2016-08-26 06:33] LABS: ANION GAP 13 MEQ/L (8-16); BLOOD UREA NITROGEN 17 MG/DL (7-18); CALCIUM LEVEL 9.5 MG/DL (8.8-10.2); CARBON DIOXIDE LEVEL 23 MEQ/L (21-32); CHLORIDE LEVEL 104 MEQ/L (98-107); CREATININE FOR GFR 1.27 MG/DL (0.70-1.30); GLOMERULAR FILTRATION RATE > 60.0 (>49); GLUCOSE, FASTING 131 MG/DL (80-110); MAGNESIUM LEVEL 2.2 MG/DL (1.8-2.4); POTASSIUM SERUM 3.5 MEQ/L (3.5-5.1); SODIUM LEVEL 140 MEQ/L (136-145)
[2016-08-26] MEDS: SYMBICORT 160/4.5MCG INHALER 6GM INH SCH ×2 (07:21→20:40)
[2016-08-26] MEDS ORDERED: FUROSEMIDE 40 MG/4 ML VIAL (J1940) IV SCH (09:00)
[2016-08-26] MEDS ORDERED: FUROSEMIDE 40 MG TAB PO SCH (09:00)
[2016-08-26] MEDS: VITAMIN D 1,000 INTERNATIONAL UNITS TABLET PO SCH (09:23)
[2016-08-26] MEDS: POTASSIUM CHLORIDE 10 MEQ SR TABLET PO SCH ×2 (09:23→21:46)
[2016-08-26] MEDS: SENOKOT S TAB PO SCH ×2 (09:23→21:45)
[2016-08-26] MEDS: MULTIVITAMINS/MINERALS THERAP 1 TAB PO SCH (09:23)
[2016-08-26] MEDS: guaiFENesin ER 600 MG TAB PO SCH ×2 (09:24→21:46)
[2016-08-26] MEDS: OMEPRAZOLE 20 MG CAP PO SCH (09:24)
[2016-08-26 14:00] VITALS: BP 159/73
[2016-08-26 22:00] VITALS: BP 150/86
[2016-08-27] MEDS: MOXIFLOXACIN HCL 400 MG in APPROPRIATE DILUENT 1 EA IV SCH (00:12)
[2016-08-27] MEDS: methylPREDNISolone INJ 125 MG/2 ML VIAL (J2930) IV SCH (00:12)
[2016-08-27] MEDS: IPRATROPIUM 0.5MG/ALBUTEROL 2.5MG INH SOL UD 3ML (DUONEB)(J7620) NEB SCH ×4 (01:18→20:00)
[2016-08-27] MEDS: HEPARIN SOD (PORCINE) 5000 UNITS/ML VIAL SC SCH ×3 (05:58→20:40)
[2016-08-27 06:00] VITALS: BP 145/86
[2016-08-27 06:16] LABS: MEAN CORPUSCULAR HEMOGLOBIN 30.5 pg (27.0-33.0); MEAN CORPUSCULAR VOLUME 95.3 fl (80.0-96.0); RED CELL DISTRIBUTION WIDTH 14.1 % (11.5-14.5); WHITE BLOOD COUNT 17.3 K/mm3 (4.0-10.0)
[2016-08-27 06:27] LABS: ANION GAP 4 MEQ/L (8-16); BLOOD UREA NITROGEN 16 MG/DL (7-18); CARBON DIOXIDE LEVEL 31 MEQ/L (21-32); CHLORIDE LEVEL 106 MEQ/L (98-107); CREATININE FOR GFR 0.86 MG/DL (0.70-1.30); GLOMERULAR FILTRATION RATE > 60.0 (>49); GLUCOSE, FASTING 139 MG/DL (80-110); MAGNESIUM LEVEL 2.7 MG/DL (1.8-2.4); POTASSIUM SERUM 4.4 MEQ/L (3.5-5.1); SODIUM LEVEL 141 MEQ/L (136-145)
[2016-08-27] MEDS: SYMBICORT 160/4.5MCG INHALER 6GM INH SCH ×2 (07:38→19:32)
[2016-08-27] MEDS: guaiFENesin ER 600 MG TAB PO SCH ×2 (09:06→20:40)
[2016-08-27] MEDS: BENZONATATE 100 MG CAP PO SCH ×3 (09:06→20:40)
[2016-08-27] MEDS: MULTIVITAMINS/MINERALS THERAP 1 TAB PO SCH (09:06)
[2016-08-27] MEDS: OMEPRAZOLE 20 MG CAP PO SCH (09:06)
[2016-08-27] MEDS: POTASSIUM CHLORIDE 10 MEQ SR TABLET PO SCH ×2 (09:06→20:40)
[2016-08-27] MEDS: VITAMIN D 1,000 INTERNATIONAL UNITS TABLET PO SCH (09:06)
[2016-08-27] MEDS: SENOKOT S TAB PO SCH ×2 (09:06→20:40)
[2016-08-27] MEDS: methylPREDNISolone INJ 40 MG/1 ML VIAL (J2920) IV SCH ×2 (09:10→16:26)
[2016-08-27] MEDS: FUROSEMIDE 40 MG TAB PO SCH ×2 (11:36→16:26)
--- NOTE | 2016-08-27 11:41 | IPNPDOC ---
Subjective Date Seen The patient was seen on 08/27/16. Subjective Chief Complaint/HPI Patient seen and examined at the bedside. States that his respiratory status has improved. Notes that he is however still coughing up quite a bit of sputum. Denies any other acute overnight complaints at this time. Objective Physical Examination General Exam: Positive: Alert, Cooperative, No Acute Distress Eye Exam: Positive: Conjunctiva & lids normal, Negative: Sclera icteric ENT Exam: Positive: Atraumatic, Mucous membr. moist/pink Neck Exam: Positive: Supple, Negative: JVD, thyromegaly Chest Exam: Positive: Diminished, Negative: Rales Heart Exam: Positive: Rate Normal, Regular Rhythm, Negative: Murmurs, Rubs Telemetry: Positive: No significant arrhythmia Abdomen Exam: Positive: Normal bowel sounds, Soft, Negative: Tenderness, Hepatospenomegaly Skin Exam: Negative: Breakdown, Lesion Neuro Exam: Positive: Normal Speech Psych Exam: Positive: Mental status NL, Mood NL, Oriented x 3 Assessment /Plan Plan/VTE VTE Prophylaxis Ordered?: Yes (heparin) Plan Acute decompensated COPD exacerbation Chest x-ray and CTA of the chest from admission noted Blood culture bottle and respiratory panel negative Sputum culture pending Continue Avelox for now IV steroids down tapered Continue guaifenesin, Tessalon perles, nebs, Symbicort Patient's respiratory status continues to improve, we will continue supportive treatment at this time Diastolic congestive heart failure, compensated Continue Lasix 40 mg twice a day with supplemental potassium Psoriasis, stable GERD Continue omeprazole DVT prophylaxis Heparin subcutaneous Disposition-anticipate discharge in 24-48 hours pending clinical improvement. VS, I&O, 24H, [place]ondaniel Vital Signs/I&O Vital Signs Date Time Temp Pulse Resp B/P (MAP) Pulse Ox O2 Delivery O2 Flow Rate FiO2 08/27/16 07:30 Nasal Cannula 2.0 08/27/16 06:00 97.1 99 18 145/86 (105) 97 I&O- Last 24 Hours up to 6 AM 08/27/16 06:00 Intake Total 2420 ml Output Total 1000 ml Balance 1420 ml Laboratory Data 24H LABS Laboratory Tests 2 08/27/16 05:47: Anion Gap 4L, Glomerular Filtration Rate > 60.0, Blood Urea Nitrogen 16, Creatinine 0.86, Sodium Level 141, Potassium Level 4.4#, Chloride Level 106, Carbon Dioxide Level 31, Calcium Level 9.0, Magnesium Level 2.7H, C-Reactive Protein, Quantitative 5.53H CBC/BMP Laboratory Tests 08/27/16 05:47 Red Blood Count 4.36, Mean Corpuscular Volume 95.3, Mean Corpuscular Hemoglobin 30.5, Mean Corpuscular Hemoglobin Concent 32.0, Red Cell Distribution Width 14.1 , Calcium Level 9.0 Microbiology Microbiology 08/25/16 Blood Culture - Preliminary, Resulted No growth after 24 hours . All specim... 08/26/16 Respiratory Virus Panel (PCR) ([facility]) - Final, Complete 08/25/16 Gram Stain - Final, Resulted 08/25/16 Sputum Culture, Resulted Pending GERARD BANSAL MD Aug 27, 2016 11:41
[2016-08-27 14:00] VITALS: BP 146/84
[2016-08-27 22:00] VITALS: BP 142/64
[2016-08-27 23:00] VITALS: BP 132/65
[2016-08-28] MEDS: MOXIFLOXACIN HCL 400 MG in APPROPRIATE DILUENT 1 EA IV SCH (00:29)
[2016-08-28] MEDS: methylPREDNISolone INJ 40 MG/1 ML VIAL (J2920) IV SCH (00:29)
[2016-08-28] MEDS: IPRATROPIUM 0.5MG/ALBUTEROL 2.5MG INH SOL UD 3ML (DUONEB)(J7620) NEB SCH ×2 (02:46→07:39)
[2016-08-28] MEDS: HEPARIN SOD (PORCINE) 5000 UNITS/ML VIAL SC SCH (06:00)
[2016-08-28 07:01] LABS: MEAN CORPUSCULAR HEMOGLOBIN 30.3 pg (27.0-33.0); MEAN CORPUSCULAR HGB CONC 31.8 g/dl (32.0-36.5); MEAN CORPUSCULAR VOLUME 95.2 fl (80.0-96.0); RED CELL DISTRIBUTION WIDTH 14.2 % (11.5-14.5); WHITE BLOOD COUNT 17.9 K/mm3 (4.0-10.0)
[2016-08-28 07:10] LABS: ANION GAP 8 MEQ/L (8-16); BLOOD UREA NITROGEN 16 MG/DL (7-18); CALCIUM LEVEL 8.8 MG/DL (8.8-10.2); CARBON DIOXIDE LEVEL 31 MEQ/L (21-32); CHLORIDE LEVEL 106 MEQ/L (98-107); CREATININE FOR GFR 0.82 MG/DL (0.70-1.30); GLOMERULAR FILTRATION RATE > 60.0 (>49); GLUCOSE, FASTING 117 MG/DL (80-110); MAGNESIUM LEVEL 2.6 MG/DL (1.8-2.4); POTASSIUM SERUM 4.2 MEQ/L (3.5-5.1); SODIUM LEVEL 145 MEQ/L (136-145)
[2016-08-28] MEDS: SYMBICORT 160/4.5MCG INHALER 6GM INH SCH (07:35)
[2016-08-28] MEDS: VITAMIN D 1,000 INTERNATIONAL UNITS TABLET PO SCH (08:28)
[2016-08-28] MEDS: OMEPRAZOLE 20 MG CAP PO SCH (08:28)
[2016-08-28] MEDS: BENZONATATE 100 MG CAP PO SCH (08:29)
[2016-08-28] MEDS: MULTIVITAMINS/MINERALS THERAP 1 TAB PO SCH (08:29)
[2016-08-28] MEDS: POTASSIUM CHLORIDE 10 MEQ SR TABLET PO SCH (08:29)
[2016-08-28] MEDS: guaiFENesin ER 600 MG TAB PO SCH (08:29)
[2016-08-28] MEDS: FUROSEMIDE 40 MG TAB PO SCH (08:29)
[2016-08-28 08:33] VITALS: BP 176/81
[2016-08-28] MEDS: SENOKOT S TAB PO SCH (08:33)
[2016-08-28] MEDS ORDERED: MOXI1TAB PO (10:56)
[2016-08-28] MEDS ORDERED: PRED10TA2 PO (10:56)
[2016-08-28] MEDS ORDERED: methylPREDNISolone INJ 40 MG/1 ML VIAL (J2920) IV SCH (12:00)
--- NOTE | 2016-08-28 15:09 | DS.PDOC ---
Discharge Summary General Date of Admission Aug 26, 2016 at 00:04 Date of Discharge 08/28/16 Discharge Summary PROCEDURES PERFORMED DURING STAY: None. ADMITTING DIAGNOSES: 1. . COPD exacerbation DISCHARGE DIAGNOSES: 1. . COPD exacerbation COMPLICATIONS/CHIEF COMPLAINT: Copd Exacerbation. HISTORY OF PRESENT ILLNESS: . 61-year-old male with past medical history of COPD, diastolic congestive heart failure, psoriasis, GERD, and morbid obesity presented to the ER with a chief complaint of increasing shortness of breath over the past few days prior to his presentation to the ER. The patient states that this was associated with a cough productive of whitish yellow sputum. He states that he has tried his nebulizer treatments at home but he has not felt any better. He denies any complaints of fevers, chills, chest pain, palpitations, abdominal pain, increasing lower extremity swelling, orthopnea, or any nausea/vomiting/diarrhea at home. In the ER, the patient was noted to have respiratory distress secondary to COPD exacerbation. The patient's symptoms did improve following initiation of steroids and nebulizer treatments. The hospitalist team was consulted for admission for further evaluation and management. During hospitalization the patient was started on IV antibiotics and IV steroids as well as serial nebulizer treatments. Over the ensuing 48 hours the patient's respiratory status significantly improved. The patient states that his chest congestion as well as his cough has decreased and he is able to ambulate much easier without any significant respiratory limitation. The patient was subsequently transitioned to by mouth steroids and antibiotics. At this time, the patient's disease feeling much better and is eager to return home. I have advised the patient to continue with a tapering dose of by mouth steroids. He is to follow-up with his primary care physician within one week. In addition, if his symptoms were to return or worsen the patient has been advised to return to the ER. DISCHARGE MEDICATIONS: Please see below. ALLERGIES: Please see below. PHYSICAL EXAMINATION ON DISCHARGE: VITAL SIGNS: Please see below. General Exam: Positive: Alert, Cooperative, No Acute Distress Eye Exam: Positive: Conjunctiva & lids normal, Negative: Sclera icteric ENT Exam: Positive: Atraumatic, Mucous membr. moist/pink Neck Exam: Positive: Supple, Negative: JVD, thyromegaly Chest Exam: Positive: Diminished, Negative: Rales Heart Exam: Positive: Rate Normal, Regular Rhythm, Negative: Murmurs, Rubs Telemetry: Positive: No significant arrhythmia Abdomen Exam: Positive: Normal bowel sounds, Soft, Negative: Tenderness, Hepatospenomegaly Skin Exam: Negative: Breakdown, Lesion Neuro Exam: Positive: Normal Speech Psych Exam: Positive: Mental status NL, Mood NL, Oriented x 3 LABORATORY DATA: Please see below. IMAGING: CLINICAL HISTORY: SOB, PRODUCTIVE SPUTUM, L BASE OPACITY ON CXR TECHNIQUE: Multiple incremental axial, coronal and oblique images are obtained from the thoracic inlet to the upper abdomen. Intravenous contrast material was administered as per pulmonary embolism protocol. COMMENTS: There is excellent opacification of pulmonary arterial system without evidence for pulmonary embolism. Aorta is of normal caliber without evidence for dissection or aneurysm. Scarring is noted in the right middle lobe and lingula. Mild biapical emphysema is seen. There is no evidence of pleural or parenchymal mass. There are no pleural effusions. There is no evidence of hilar or mediastinal lymphadenopathy. The heart and great vessels are within normal limits. Images of the upper abdomen demonstrate no evidence of adrenal mass. The bony structures are free of lytic or blastic lesions. Multilevel degenerative changes are seen involving the visualized thoracolumbar spine. Scattered calcifications are seen involving the aorta and major branches compatible with atherosclerosis. IMPRESSION: No evidence for pulmonary embolism. Emhysema. PROGNOSIS: Medically stable ACTIVITY: As tolerated. DIET: . Low-fat, low-cholesterol diet DISCHARGE PLAN: DISPOSITION: Home, Self-Care. DISCHARGE INSTRUCTIONS: 1. . Follow-up with primary care physician within one week 2. . Return to ER if symptoms return or persist DISCHARGE CONDITION: Stable. TIME SPENT ON DISCHARGE: Greater than 30 minutes. Vital Signs/I&Os Vital Signs Date Time Temp Pulse Resp B/P (MAP) Pulse Ox O2 Delivery O2 Flow Rate FiO2 08/28/16 09:00 2.0 08/28/16 08:33 99.2 89 20 176/81 (112) 95 Nasal Cannula I&O- Last 24 Hours up to 6 AM 08/28/16 06:00 Intake Total 3130 ml Output Total 3390 ml Balance -260 ml Laboratory Data Labs 24H Laboratory Tests 2 08/28/16 06:36: Anion Gap 8, Glomerular Filtration Rate > 60.0, Blood Urea Nitrogen 16, Creatinine 0.82, Sodium Level 145, Potassium Level 4.2, Chloride Level 106, Carbon Dioxide Level 31, Calcium Level 8.8, Magnesium Level 2.6H, C-Reactive Protein, Quantitative 2.21H CBC/BMP Laboratory Tests 08/28/16 06:36 Red Blood Count 4.48, Mean Corpuscular Volume 95.2, Mean Corpuscular Hemoglobin 30.3, Mean Corpuscular Hemoglobin Concent 31.8 L, Red Cell Distribution Width 14.2, Calcium Level 8.8 Microbiology Microbiology 08/25/16 Blood Culture - Preliminary, Resulted No Growth after 48 hours. All Specime... 08/26/16 Respiratory Virus Panel (PCR) ([facility]) - Final, Complete 08/25/16 Gram Stain - Final, Resulted 08/25/16 Sputum Culture, Resulted Pending Discharge Medications Scheduled Budesonide/Formoterol (Symbicort 160-4.5 Mcg/Act) 60 Puff/Inhaler Aers, 2 PUFFS INH BID, (Reported) Cholecalciferol (Vitamin D3) 2,000 Unit Cap, 2,000 UNIT PO DAILY, (Reported) Furosemide (Furosemide) 40 Mg Tab, 40 MG PO BID, (Reported) Moxifloxacin Hydrochloride (Moxifloxacin HCl) 400 Mg Tab, 400 MG PO DAILY Multivitamins *[facility] STOCKED* (Thera M Plus *[facility] STOCKED*) 1 Tab Tab, 1 TAB PO DAILY, (Reported) Omeprazole (Omeprazole) 20 Mg Cap, 20 MG PO DAILY, (Reported) Potassium Chloride (Potassium Chloride ER) 20 Meq Tab, 20 MEQ PO BID, (Reported) Prednisone (Prednisone) 10 Mg Tab, 10 MG PO TAPER Take 4 tabs daily x 3 days, then 3 tabs daily x 3 days, then 2 tabs daily x 3 days, then 1 tab daily x 3 days and stop Scheduled PRN Albuterol Sulfate (Proair Hfa) 108 Mcg/Act Aer, 1 PUFF INH Q4H PRN for SOB/ WHEEZING, (Reported) Albuterol Sulfate (Albuterol Sulfate) 2.5 Mg/3 Ml Nebu, 1 VIAL INH Q4H PRN for SHORTNESS OF BREATH, (Reported) Ipratropium [place] (Ipratropium [place]) 0.5 Mg/2.5 Ml Soln, 1 VIAL INH Q4H PRN for SHORTNESS OF BREATH, (Reported) Allergies Coded Allergies: Penicillins (Verified Allergy, Severe, ANAPHYLAXIS, 05/14/12) Penicillins Cross Reactors (Verified Allergy, Severe, ANAPHYLAXIS, 05/14/12) SEAFOOD (Verified Allergy, Severe, DIFFICULTY BREATHING, 05/31/16) Eggs or Egg-derived Products (Verified Allergy, Unknown, 04/24/14) GERARD BANSAL MD Aug 28, 2016 15:09
== END 2016-08-28 12:00 | disposition home or self-care (01) | DRG 191 ==
LOC: EDBD 15:21 → M ED 15:21 → M ED INP 08-26 00:04 → M MS5PR 08-26 02:49 → M PED 08-27 23:00
PROVIDERS: ADMIT Hospitalist; ATTEND Internal Medicine
DX: J44.1 Chronic obstructive pulmonary disease with (acute) exacerbation (principal); I50.32 Chronic diastolic (congestive) heart failure; Z68.42 Body mass index [BMI] 45.0-49.9, adult; K21.9 Gastro-esophageal reflux disease without esophagitis; E66.01 Morbid (severe) obesity due to excess calories; Z79.899 Other long term (current) drug therapy; Z88.0 Allergy status to penicillin; Z91.013 Allergy to seafood; Z91.012 Allergy to eggs; Z87.891 Personal history of nicotine dependence

== ENCOUNTER 2017-03-29 14:24 | Emergency (ER) | payer MEDICARE, MEDICAID ==
[2017-03-29 15:02] LABS: VENOUS BASE EXCESS 3.4 (-2.0-2.0); VENOUS HCO3 29.2 MEQ/L (23.0-27.0); VENOUS O2 SATURATION 93.6 % (60.0-80.0); VENOUS PARTIAL PRESSURE CO2 48.6 mmHg (38.0-50.0); VENOUS PARTIAL PRESSURE O2 67.9 mmHg (30.0-50.0); VENOUS PH 7.396 UNITS (7.330-7.430); VENOUS STANDARD HCO3 27.4 MEQ/L; VENOUS TOTAL CO2 30.7 MEQ/L (24.0-28.0)
[2017-03-29] MEDS: ASPIRIN 81 MG CHEW TABLET PO (15:04)
[2017-03-29] MEDS: FUROSEMIDE 100 MG/10 ML VIAL (J1940) IV (15:04)
[2017-03-29] MEDS: IPRATROPIUM 0.5MG/ALBUTEROL 2.5MG INH SOL UD 3ML (DUONEB)(J7620) NEB ×3 (15:11→16:13)
[2017-03-29 15:14] LABS: ALBUMIN 3.5 GM/DL (3.2-5.2); ALBUMIN/GLOBULIN RATIO 0.88 (1.00-1.93); ALKALINE PHOSPHATASE 86 U/L (45-117); ALT/SGPT 31 U/L (12-78); ANION GAP 6 MEQ/L (8-16); AST/SGOT 14 U/L (7-37); BASO # 0.1 10^3/uL (0.0-0.2); BASO % 0.7 % (0.0-1.0); BILIRUBIN,DIRECT 0.1 MG/DL (0.0-0.2); BILIRUBIN,TOTAL 0.4 MG/DL (0.2-1.0); BLOOD UREA NITROGEN 16 MG/DL (7-18); CALCIUM LEVEL 8.7 MG/DL (8.8-10.2); CARBON DIOXIDE LEVEL 30 MEQ/L (21-32); CHLORIDE LEVEL 105 MEQ/L (98-107); CPK CREATINE PHOSPHOKINASE 132 U/L (39-308); EOS # 0.2 10^3/uL (0.0-0.50); EOS % 1.7 % (0.0-3.0); GLOMERULAR FILTRATION RATE > 60.0 (>49); GLUCOSE, FASTING 89 MG/DL (70-100); HEMATOCRIT 44.7 % (42.0-52.0); HEMOGLOBIN 14.3 g/dl (14.0-18.0); IMMATURE GRANULOCYTE % 0.7 % (0-3.0); LYMPH # 1.8 10^3/uL (1.5-4.5); LYMPH % 16.4 % (24.0-44.0); MEAN CORPUSCULAR HEMOGLOBIN 29.1 pg (27.0-33.0); MEAN CORPUSCULAR VOLUME 90.9 fl (80.0-96.0); MONO % 9.3 % (0.0-5.0); NEUTROPHILS # 7.6 10^3/uL (1.8-7.7); NEUTROPHILS % 71.2 % (36.0-66.0); PLATELET COUNT, AUTOMATED 260 10^3/uL (150-450); POTASSIUM SERUM 4.1 MEQ/L (3.5-5.1); RED BLOOD COUNT 4.92 10^6/uL (4.30-6.10); RED CELL DISTRIBUTION WIDTH 15.5 % (11.5-14.5); SODIUM LEVEL 141 MEQ/L (136-145); TOTAL PROTEIN 7.5 GM/DL (6.4-8.2); TROPONIN I < 0.02 NG/ML (< 0.10); WHITE BLOOD COUNT 10.7 10^3/uL (4.0-10.0)
[2017-03-29 15:15] LABS: CK-MB VALUE MASS 2.8 NG/ML (0.0-3.6); MB/CK RELATIVE INDEX 2.12 (< OR =4); NT-PRO BNP 94 PG/ML (<125)
[2017-03-29 15:28] LABS: INR 1.06; PROTHROMBIN TIME 13.9 SECONDS (12.4-14.5)
[2017-03-29 16:12] LABS: C REACTIVE PROTEIN QUANTITATIV 3.32 MG/DL (0.00-0.30)
[2017-03-29] MEDS: cloNIDine 0.1 MG TAB PO (20:06)
== END 2017-03-29 21:29 | disposition home or self-care (01) ==
LOC: M ED 14:24
DX: R60.0 Localized edema (principal); R06.02 Shortness of breath; E11.9 Type 2 diabetes mellitus without complications; I11.0 Hypertensive heart disease with heart failure; I50.9 Heart failure, unspecified; J44.9 Chronic obstructive pulmonary disease, unspecified; I25.10 Atherosclerotic heart disease of native coronary artery without angina pectoris; Z99.89 Dependence on other enabling machines and devices; Z79.899 Other long term (current) drug therapy; Z91.012 Allergy to eggs; Z91.013 Allergy to seafood; Z88.0 Allergy status to penicillin; Z87.891 Personal history of nicotine dependence
CPT/HCPCS: J1940

== ENCOUNTER 2017-04-08 12:13 | Inpatient (IN) | payer MEDICARE, MEDICAID ==
[2017-04-08 14:00] LABS: BASO # 0.1 10^3/uL (0.0-0.2); BASO % 0.4 % (0.0-1.0); EOS % 0.2 % (0.0-3.0); IMMATURE GRANULOCYTE % 0.6 % (0-3.0); LYMPH # 0.8 10^3/uL (1.5-4.5); LYMPH % 7.1 % (24.0-44.0); MEAN CORPUSCULAR HEMOGLOBIN 28.8 pg (27.0-33.0); MEAN CORPUSCULAR HGB CONC 31.8 g/dl (32.0-36.5); MEAN CORPUSCULAR VOLUME 90.5 fl (80.0-96.0); MONO # 0.3 10^3/uL (0.0-0.8); MONO % 2.6 % (0.0-5.0); NEUTROPHILS # 9.9 10^3/uL (1.8-7.7); NEUTROPHILS % 89.1 % (36.0-66.0); PLATELET COUNT, AUTOMATED 223 10^3/uL (150-450); RED BLOOD COUNT 4.86 10^6/uL (4.30-6.10); RED CELL DISTRIBUTION WIDTH 15.3 % (11.5-14.5); WHITE BLOOD COUNT 11.1 10^3/uL (4.0-10.0)
[2017-04-08 14:16] LABS: ESTIMATED AVERAGE GLUCOSE 123 MG/DL (60-110); HEMOGLOBIN A1c 5.9 %; INR 1.07; PROTHROMBIN TIME 14.1 SECONDS (12.4-14.5)
[2017-04-08 14:17] LABS: PARTIAL THROMBOPLASTIN TIME 34.6 SECONDS (26.8-37.9)
[2017-04-08 14:27] LABS: LACTIC ACID SEPSIS PROTOCOL 1.6 MMOL/L (0.4-2.0)
[2017-04-08 14:27] LABS: ALBUMIN 3.5 GM/DL (3.2-5.2); ALBUMIN/GLOBULIN RATIO 0.95 (1.00-1.93); ALKALINE PHOSPHATASE 92 U/L (45-117); ALT/SGPT 28 U/L (12-78); ANION GAP 7 MEQ/L (8-16); AST/SGOT 15 U/L (7-37); BILIRUBIN,DIRECT 0.1 MG/DL (0.0-0.2); BILIRUBIN,TOTAL 0.4 MG/DL (0.2-1.0); BLOOD UREA NITROGEN 22 MG/DL (7-18); C REACTIVE PROTEIN QUANTITATIV 2.95 MG/DL (0.00-0.30); CALCIUM LEVEL 8.6 MG/DL (8.8-10.2); CARBON DIOXIDE LEVEL 27 MEQ/L (21-32); CHLORIDE LEVEL 105 MEQ/L (98-107); CPK CREATINE PHOSPHOKINASE 127 U/L (39-308); GLOMERULAR FILTRATION RATE > 60.0 (>49); GLUCOSE, FASTING 122 MG/DL (70-100); MAGNESIUM LEVEL 2.3 MG/DL (1.8-2.4); POTASSIUM SERUM 4.5 MEQ/L (3.5-5.1); SODIUM LEVEL 139 MEQ/L (136-145); TOTAL PROTEIN 7.2 GM/DL (6.4-8.2); TROPONIN I < 0.02 NG/ML (< 0.10)
[2017-04-08 14:29] LABS: ERYTHROCYTE SEDIMENTATION RATE 43 mm/hr (0-20)
[2017-04-08 14:37] LABS: CK-MB VALUE MASS 3.2 NG/ML (0.0-3.6); MB/CK RELATIVE INDEX 2.51 (< OR =4); NT-PRO BNP 122 PG/ML (<125)
[2017-04-08] MEDS: FUROSEMIDE 40 MG/4 ML VIAL (J1940) IV (15:10)
[2017-04-08] MEDS: LevoFLOXacin IV 500 MG in APPROPRIATE DILUENT 1 EA IV (15:14)
[2017-04-08] MEDS ORDERED: IPRATROPIUM 0.5MG/ALBUTEROL 2.5MG INH SOL UD 3ML (DUONEB)(J7620) NEB (16:00)
[2017-04-08] MEDS ORDERED: ONDANSETRON 4MG/2ML VIAL (J2405) IV (16:00)
[2017-04-08] MEDS ORDERED: PERCOCET 5MG/325MG TAB PO (16:00)
[2017-04-08] MEDS: VANCOMYCIN HCL 1,000 MG, VIAL MATE ADAPTER 1 EACH in D5W 250 ML IV ×2 (16:20→21:50)
[2017-04-08] MEDS: IPRATROPIUM 0.5MG/ALBUTEROL 2.5MG INH SOL UD 3ML (DUONEB)(J7620) NEB (20:00)
[2017-04-08] MEDS: SYMBICORT 160/4.5MCG INHALER 6GM INH (20:25)
[2017-04-08] MEDS: VITAMIN D 1,000 INTERNATIONAL UNITS TABLET PO (21:49)
[2017-04-08] MEDS: ACETAMINOPHEN TAB 650MG DOSE (2X325MG) PO (21:50)
[2017-04-09] MEDS: IPRATROPIUM 0.5MG/ALBUTEROL 2.5MG INH SOL UD 3ML (DUONEB)(J7620) NEB ×3 (02:00→20:00)
[2017-04-09] MEDS: VANCOMYCIN HCL 1,000 MG, VIAL MATE ADAPTER 1 EACH in D5W 250 ML IV ×3 (06:21→21:20)
[2017-04-09 06:49] LABS: HEMATOCRIT 42.5 % (42.0-52.0); HEMOGLOBIN 13.5 g/dl (14.0-18.0); MEAN CORPUSCULAR HGB CONC 31.8 g/dl (32.0-36.5); MEAN CORPUSCULAR VOLUME 91.4 fl (80.0-96.0); PLATELET COUNT, AUTOMATED 204 10^3/uL (150-450); RED BLOOD COUNT 4.65 10^6/uL (4.30-6.10); RED CELL DISTRIBUTION WIDTH 15.4 % (11.5-14.5); WHITE BLOOD COUNT 9.7 10^3/uL (4.0-10.0)
[2017-04-09 07:03] LABS: ALBUMIN 3.2 GM/DL (3.2-5.2); ALBUMIN/GLOBULIN RATIO 0.78 (1.00-1.93); ALKALINE PHOSPHATASE 84 U/L (45-117); ALT/SGPT 26 U/L (12-78); ANION GAP 5 MEQ/L (8-16); AST/SGOT 15 U/L (7-37); BILIRUBIN,TOTAL 0.4 MG/DL (0.2-1.0); BLOOD UREA NITROGEN 20 MG/DL (7-18); C REACTIVE PROTEIN QUANTITATIV 2.47 MG/DL (0.00-0.30); CALCIUM LEVEL 8.6 MG/DL (8.8-10.2); CARBON DIOXIDE LEVEL 32 MEQ/L (21-32); CHLORIDE LEVEL 103 MEQ/L (98-107); CREATININE FOR GFR 0.93 MG/DL (0.70-1.30); GLOMERULAR FILTRATION RATE > 60.0 (>49); GLUCOSE, FASTING 103 MG/DL (70-100); MAGNESIUM LEVEL 2.4 MG/DL (1.8-2.4); POTASSIUM SERUM 3.7 MEQ/L (3.5-5.1); SODIUM LEVEL 140 MEQ/L (136-145); TOTAL PROTEIN 7.3 GM/DL (6.4-8.2)
[2017-04-09] MEDS: SYMBICORT 160/4.5MCG INHALER 6GM INH ×2 (08:51→20:35)
[2017-04-09] MEDS: FUROSEMIDE 40 MG/4 ML VIAL (J1940) IV ×2 (09:29→16:51)
[2017-04-09] MEDS: ENOXAPARIN 40 MG/0.4 ML SYRINGE (J1650) SC (09:30)
[2017-04-09] MEDS: OMEPRAZOLE 20 MG CAP PO (09:30)
[2017-04-09] MEDS: MULTIVITAMINS/MINERALS THERAP 1 TAB PO (09:31)
[2017-04-09] MEDS: ACETAMINOPHEN TAB 650MG DOSE (2X325MG) PO (12:21)
[2017-04-09] MEDS: LevoFLOXacin IV 500 MG in APPROPRIATE DILUENT 1 EA IV (16:51)
[2017-04-09] MEDS: VITAMIN D 1,000 INTERNATIONAL UNITS TABLET PO (20:00)
[2017-04-09 21:51] LABS: VANCOMYCIN LEVEL TROUGH 16.6 UG/ML (10.0-20.0)
[2017-04-10] MEDS: IPRATROPIUM 0.5MG/ALBUTEROL 2.5MG INH SOL UD 3ML (DUONEB)(J7620) NEB ×4 (01:11→20:00)
[2017-04-10] MEDS: VANCOMYCIN HCL 1,000 MG, VIAL MATE ADAPTER 1 EACH in D5W 250 ML IV ×3 (05:45→21:03)
[2017-04-10 06:52] LABS: HEMATOCRIT 43.9 % (42.0-52.0); HEMOGLOBIN 13.8 g/dl (14.0-18.0); MEAN CORPUSCULAR HEMOGLOBIN 28.6 pg (27.0-33.0); MEAN CORPUSCULAR HGB CONC 31.4 g/dl (32.0-36.5); MEAN CORPUSCULAR VOLUME 90.9 fl (80.0-96.0); PLATELET COUNT, AUTOMATED 180 10^3/uL (150-450); RED BLOOD COUNT 4.83 10^6/uL (4.30-6.10); RED CELL DISTRIBUTION WIDTH 15.3 % (11.5-14.5); WHITE BLOOD COUNT 9.2 10^3/uL (4.0-10.0)
[2017-04-10 07:12] LABS: ALBUMIN 3.3 GM/DL (3.2-5.2); ALBUMIN/GLOBULIN RATIO 0.83 (1.00-1.93); ALKALINE PHOSPHATASE 80 U/L (45-117); ALT/SGPT 26 U/L (12-78); ANION GAP 8 MEQ/L (8-16); AST/SGOT 16 U/L (7-37); BILIRUBIN,TOTAL 0.3 MG/DL (0.2-1.0); BLOOD UREA NITROGEN 17 MG/DL (7-18); C REACTIVE PROTEIN QUANTITATIV 2.26 MG/DL (0.00-0.30); CALCIUM LEVEL 8.6 MG/DL (8.8-10.2); CARBON DIOXIDE LEVEL 30 MEQ/L (21-32); CHLORIDE LEVEL 103 MEQ/L (98-107); CREATININE FOR GFR 0.96 MG/DL (0.70-1.30); GLOMERULAR FILTRATION RATE > 60.0 (>49); GLUCOSE, FASTING 114 MG/DL (70-100); MAGNESIUM LEVEL 2.3 MG/DL (1.8-2.4); POTASSIUM SERUM 3.5 MEQ/L (3.5-5.1); SODIUM LEVEL 141 MEQ/L (136-145); TOTAL PROTEIN 7.3 GM/DL (6.4-8.2)
[2017-04-10] MEDS: SYMBICORT 160/4.5MCG INHALER 6GM INH ×2 (08:11→20:52)
[2017-04-10] MEDS: ENOXAPARIN 40 MG/0.4 ML SYRINGE (J1650) SC (09:15)
[2017-04-10] MEDS: FUROSEMIDE 40 MG TAB PO ×2 (09:15→19:36)
[2017-04-10] MEDS: MULTIVITAMINS/MINERALS THERAP 1 TAB PO (09:15)
[2017-04-10] MEDS: OMEPRAZOLE 20 MG CAP PO (09:15)
[2017-04-10] MEDS: ACETAMINOPHEN TAB 650MG DOSE (2X325MG) PO (10:31)
[2017-04-10] MEDS: LevoFLOXacin IV 500 MG in APPROPRIATE DILUENT 1 EA IV (16:36)
[2017-04-10 18:55] LABS: CPK CREATINE PHOSPHOKINASE 236 U/L (39-308); TROPONIN I < 0.02 NG/ML (< 0.10)
[2017-04-10 18:56] LABS: CK-MB VALUE MASS 3.3 NG/ML (0.0-3.6); MB/CK RELATIVE INDEX 1.39 (< OR =4)
[2017-04-10] MEDS: VITAMIN D 1,000 INTERNATIONAL UNITS TABLET PO (19:35)
[2017-04-10 20:02] LABS: C REACTIVE PROTEIN QUANTITATIV 3.03 MG/DL (0.00-0.30)
[2017-04-11 00:54] LABS: CPK CREATINE PHOSPHOKINASE 170 U/L (39-308); MB/CK RELATIVE INDEX 1.76 (< OR =4); TROPONIN I < 0.02 NG/ML (< 0.10)
[2017-04-11] MEDS: IPRATROPIUM 0.5MG/ALBUTEROL 2.5MG INH SOL UD 3ML (DUONEB)(J7620) NEB ×4 (02:04→20:00)
[2017-04-11] MEDS: VANCOMYCIN HCL 1,000 MG, VIAL MATE ADAPTER 1 EACH in D5W 250 ML IV (05:21)
[2017-04-11] MEDS: SYMBICORT 160/4.5MCG INHALER 6GM INH ×2 (07:49→21:17)
[2017-04-11 08:06] LABS: HEMATOCRIT 41.9 % (42.0-52.0); HEMOGLOBIN 13.2 g/dl (14.0-18.0); MEAN CORPUSCULAR HEMOGLOBIN 28.9 pg (27.0-33.0); MEAN CORPUSCULAR HGB CONC 31.5 g/dl (32.0-36.5); MEAN CORPUSCULAR VOLUME 91.7 fl (80.0-96.0); PLATELET COUNT, AUTOMATED 166 10^3/uL (150-450); RED BLOOD COUNT 4.57 10^6/uL (4.30-6.10); RED CELL DISTRIBUTION WIDTH 15.4 % (11.5-14.5); WHITE BLOOD COUNT 8.8 10^3/uL (4.0-10.0)
[2017-04-11 08:36] LABS: ALBUMIN 3.2 GM/DL (3.2-5.2); ALBUMIN/GLOBULIN RATIO 0.84 (1.00-1.93); ALKALINE PHOSPHATASE 77 U/L (45-117); ALT/SGPT 30 U/L (12-78); ANION GAP 4 MEQ/L (8-16); AST/SGOT 15 U/L (7-37); BILIRUBIN,TOTAL 0.4 MG/DL (0.2-1.0); BLOOD UREA NITROGEN 15 MG/DL (7-18); CALCIUM LEVEL 8.5 MG/DL (8.8-10.2); CARBON DIOXIDE LEVEL 32 MEQ/L (21-32); CHLORIDE LEVEL 103 MEQ/L (98-107); CREATININE FOR GFR 0.88 MG/DL (0.70-1.30); GLOMERULAR FILTRATION RATE > 60.0 (>49); GLUCOSE, FASTING 102 MG/DL (70-100); MAGNESIUM LEVEL 2.4 MG/DL (1.8-2.4); POTASSIUM SERUM 3.8 MEQ/L (3.5-5.1); SODIUM LEVEL 139 MEQ/L (136-145)
[2017-04-11] MEDS: ENOXAPARIN 40 MG/0.4 ML SYRINGE (J1650) SC (08:50)
[2017-04-11] MEDS: FUROSEMIDE 40 MG TAB PO ×2 (08:50→21:38)
[2017-04-11] MEDS: MULTIVITAMINS/MINERALS THERAP 1 TAB PO (08:51)
[2017-04-11] MEDS: OMEPRAZOLE 20 MG CAP PO (08:51)
[2017-04-11] MEDS: LevoFLOXacin IV 500 MG in APPROPRIATE DILUENT 1 EA IV ×2 (16:00→16:28)
[2017-04-11] MEDS: LevoFLOXacin 500 MG TABLET PO (17:06)
[2017-04-11] MEDS: VITAMIN D 1,000 INTERNATIONAL UNITS TABLET PO (21:38)
[2017-04-12] MEDS: IPRATROPIUM 0.5MG/ALBUTEROL 2.5MG INH SOL UD 3ML (DUONEB)(J7620) NEB ×2 (02:17→08:00)
[2017-04-12] MEDS: LevoFLOXacin 500 MG TABLET PO (06:02)
[2017-04-12 06:53] LABS: HEMATOCRIT 40.2 % (42.0-52.0); HEMOGLOBIN 12.6 g/dl (14.0-18.0); MEAN CORPUSCULAR HEMOGLOBIN 28.8 pg (27.0-33.0); MEAN CORPUSCULAR HGB CONC 31.3 g/dl (32.0-36.5); MEAN CORPUSCULAR VOLUME 91.8 fl (80.0-96.0); PLATELET COUNT, AUTOMATED 153 10^3/uL (150-450); RED BLOOD COUNT 4.38 10^6/uL (4.30-6.10); RED CELL DISTRIBUTION WIDTH 15.2 % (11.5-14.5); WHITE BLOOD COUNT 8.3 10^3/uL (4.0-10.0)
[2017-04-12 07:22] LABS: ALBUMIN/GLOBULIN RATIO 0.77 (1.00-1.93); ALKALINE PHOSPHATASE 75 U/L (45-117); ALT/SGPT 24 U/L (12-78); ANION GAP 7 MEQ/L (8-16); AST/SGOT 14 U/L (7-37); BILIRUBIN,TOTAL 0.3 MG/DL (0.2-1.0); BLOOD UREA NITROGEN 11 MG/DL (7-18); C REACTIVE PROTEIN QUANTITATIV 3.53 MG/DL (0.00-0.30); CALCIUM LEVEL 8.2 MG/DL (8.8-10.2); CARBON DIOXIDE LEVEL 32 MEQ/L (21-32); CHLORIDE LEVEL 104 MEQ/L (98-107); CREATININE FOR GFR 0.88 MG/DL (0.70-1.30); GLOMERULAR FILTRATION RATE > 60.0 (>49); GLUCOSE, FASTING 95 MG/DL (70-100); MAGNESIUM LEVEL 2.3 MG/DL (1.8-2.4); POTASSIUM SERUM 3.4 MEQ/L (3.5-5.1); SODIUM LEVEL 143 MEQ/L (136-145); TOTAL PROTEIN 6.9 GM/DL (6.4-8.2)
[2017-04-12] MEDS: OMEPRAZOLE 20 MG CAP PO (09:08)
[2017-04-12] MEDS: MULTIVITAMINS/MINERALS THERAP 1 TAB PO (09:08)
[2017-04-12] MEDS: ENOXAPARIN 40 MG/0.4 ML SYRINGE (J1650) SC (09:08)
[2017-04-12] MEDS: FUROSEMIDE 40 MG TAB PO (09:08)
[2017-04-12] MEDS: SYMBICORT 160/4.5MCG INHALER 6GM INH (09:26)
[2017-04-12] MEDS: POTASSIUM CHLORIDE 10 MEQ SR TABLET PO (12:07)
== END 2017-04-12 12:20 | disposition home health service (06) | DRG 602 ==
LOC: M ED 12:13 → M ED INP 15:55 → M MS4PR 17:20
DX: L03.115 Cellulitis of right lower limb (principal); I50.33 Acute on chronic diastolic (congestive) heart failure; Z68.42 Body mass index [BMI] 45.0-49.9, adult; J44.9 Chronic obstructive pulmonary disease, unspecified; L40.9 Psoriasis, unspecified; K21.9 Gastro-esophageal reflux disease without esophagitis; G47.33 Obstructive sleep apnea (adult) (pediatric); E66.01 Morbid (severe) obesity due to excess calories; Z66 Do not resuscitate; Z99.81 Dependence on supplemental oxygen; Z79.899 Other long term (current) drug therapy; Z88.0 Allergy status to penicillin; Z91.013 Allergy to seafood; Z91.012 Allergy to eggs; Z87.891 Personal history of nicotine dependence

== ENCOUNTER 2017-05-28 14:04 | Outpatient (RCR) | payer MEDICARE, MEDICAID | END 2017-06-11 | LOC: M PT 14:04 | DX: Z51.89 Encounter for other specified aftercare (principal); L03.115 Cellulitis of right lower limb; I89.0 Lymphedema, not elsewhere classified; R60.0 Localized edema | CPT/HCPCS: 97140 ==

== ENCOUNTER → 2017-08-09 | Outpatient (CLI) | payer MEDICARE, MEDICAID | LOC: M WUC 12:11 | DX: M25.512 Pain in left shoulder (principal) | CPT/HCPCS: 73030 ==

== ENCOUNTER 2017-10-29 12:47 | Outpatient (RCR) | payer MEDICARE, MEDICAID | END 2017-11-11 | LOC: M PT 12:47 | DX: J44.9 Chronic obstructive pulmonary disease, unspecified (principal); R06.02 Shortness of breath; I71.2 Thoracic aortic aneurysm, without rupture | CPT/HCPCS: 97162 ==

== ENCOUNTER 2018-03-03 01:21 | Inpatient (IN) | payer MEDICARE, MEDICAID ==
[~2018-03-03] VITALS: Ht 167.6 cm; Wt 122.7 kg
[~2018-03-03 01:21] MED LIST changes: +FURO80TA2 PO; +IPRA0.00 INH; +MOXI1TAB PO; +POTA20TA6 PO; +TRIP1OIN4 TOP; +VITA100066 PO; +VITMTA PO; -ZOFR20TA PO; +ZOFR4TAB16 PO
[2018-03-03] MEDS ORDERED: dexameTHASONE 20 MG/5 ML VIAL (J1100) IV ONE (01:45)
[2018-03-03] MEDS ORDERED: NITROGLYCERIN 2% OINT 1 GM *U/D* PKT TOP ONE (01:45)
[2018-03-03] MEDS ORDERED: FUROSEMIDE 100 MG/10 ML VIAL (J1940) IV ONE (01:45)
[2018-03-03 01:57] LABS: ABG BASE EXCESS 2.6 (-2.0-2.0); ABG HCO3 26.2 MEQ/L (22.0-26.0); ABG O2 SATURATION 93.1 % (95.0-99.0); ABG PARTIAL PRESSURE CO2 37.2 mmHg (35.0-45.0); ABG STANDARD HCO3 26.7 MEQ/L (22.0-26.0); ABG TOTAL CO2 27.4 MEQ/L (23.0-31.0); ABG pH (ARTERIAL) 7.466 UNITS (7.350-7.450)
[2018-03-03 02:19] LABS: BASO # 0.1 10^3/uL (0.0-0.2); BASO % 0.5 % (0.0-1.0); EOS # 0.3 10^3/uL (0.0-0.50); EOS % 1.8 % (0.0-3.0); HEMATOCRIT 44.9 % (42.0-52.0); HEMOGLOBIN 14.4 g/dl (13.5-17.5); LYMPH # 1.3 10^3/uL (1.5-4.5); LYMPH % 7.7 % (24.0-44.0); MEAN CORPUSCULAR HEMOGLOBIN 29.6 pg (27.0-33.0); MEAN CORPUSCULAR HGB CONC 32.1 g/dl (32.0-36.5); MEAN CORPUSCULAR VOLUME 92.2 fl (80.0-96.0); MONO # 1.2 10^3/uL (0.0-0.8); NEUTROPHILS # 14.1 10^3/uL (1.8-7.7); NEUTROPHILS % 82.5 % (36.0-66.0); PLATELET COUNT, AUTOMATED 211 10^3/uL (150-450); RED BLOOD COUNT 4.87 10^6/uL (4.30-6.10); WHITE BLOOD COUNT 17.1 10^3/uL (4.0-10.0)
[2018-03-03 02:44] LABS: BLOOD UREA NITROGEN 22 MG/DL (7-18); CALCIUM LEVEL 8.4 MG/DL (8.8-10.2); CARBON DIOXIDE LEVEL 26 MEQ/L (21-32); CHLORIDE LEVEL 106 MEQ/L (98-107); CREATININE FOR GFR 1.21 MG/DL (0.70-1.30); GLOMERULAR FILTRATION RATE > 60.0 (>49); GLUCOSE, FASTING 114 MG/DL (70-100); NT-PRO BNP 80 PG/ML (<125); POTASSIUM SERUM 4.1 MEQ/L (3.5-5.1); SODIUM LEVEL 141 MEQ/L (136-145)
[2018-03-03] MEDS ORDERED: ISOVUE-370 76% 100ML VIAL (Q9967) As Ordered ONE (03:16)
--- NOTE | 2018-03-03 04:28 | REPVR ---
EXAM: CT Angiography Chest With Contrast EXAM DATE/TIME: 03/03/2018 3:28 AM CLINICAL HISTORY: 63 years old, male; Signs and symptoms; Shortness of breath; Additional info: Dysp TECHNIQUE: Axial computed tomographic angiography images of the chest with intravenous contrast using CT angiography protocol. All CT scans at this facility use at least one of these dose optimization techniques: automated exposure control; mA and/or kV adjustment per patient size (includes targeted exams where dose is matched to clinical indication); or iterative reconstruction. Coronal and sagittal reformatted images were created and reviewed. MIP reconstructed images were created and reviewed. CONTRAST: 75 ml of ISO 370 administered intravenously. COMPARISON: CT ANGIO CHEST 08/25/2016 8:31 PM FINDINGS: Pulmonary arteries: The pulmonary arteries are borderline in size.No filling defects are seen to indicate an acute pulmonary embolism. Aorta: The aorta demonstrates mild atherosclerotic calcification. There is no thoracic aortic aneurysm or evidence of dissection. Lungs: Moderate centrilobular emphysematous changes are present. There is a poorly defined, somewhat rounded area of consolidation posteromedially in the left lower lobe, measuring approximately 3 cm in diameter. There is a sub-solid 1.7 cm groundglass density slightly further superiorly in the left lower lobe (image 134 of series 401). Predominantly linear densities are seen in the right middle lobe and lingula, likely chronic atelectasis or postinflammatory scarring as they appear unchanged compared to the prior exam. Pleural space: There are no pleural effusions present. Heart: Normal. No cardiomegaly. No pericardial effusion. Upper abdomen: The visualized upper abdomen structures are unremarkable. Lymph nodes: No lymphadenopathy is seen. Bones/joints: Mild degenerative endplate changes are seen at multiple levels in the visualized spine. No suspicious osseous lesions. No acute fractures or dislocations. Soft tissues: Unremarkable. IMPRESSION: 1. No evidence of acute pulmonary embolism. 2. Emphysema. 3. Area of consolidation and nearby focal groundglass opacity in the left lower lobe, probably due to pneumonia, but as they are focal, followup is recommended after appropriate therapy to ensure resolution. Electronically signed by: Flor Mace On 03/03/2018 04:27:46 AM
[2018-03-03] MEDS ORDERED: AZITHROMYCIN INJ 500 MG, VIAL MATE ADAPTER 1 EACH in D5W 250 ML IV ONE (05:00)
[2018-03-03] MEDS ORDERED: AZITHROMYCIN INJ 500 MG, VIAL MATE ADAPTER 1 EACH in D5W 250 ML IV SCH (06:00)
[2018-03-03] MEDS ORDERED: cefTRIAXone SOD 1 GM in D5W MINI-BAG PLUS 50 ML IV SCH (06:00)
[2018-03-03 06:22] LABS: TROPONIN I < 0.02 NG/ML (< 0.10)
[2018-03-03] MEDS: HEPARIN SOD (PORCINE) 5000 UNITS/ML VIAL SC SCH ×3 (06:22→21:38)
[2018-03-03] MEDS ORDERED: ALBUTEROL SULFATE 2.5 MG/0.5 ML INH NEB SOLN NEB PRN (06:45)
[2018-03-03] MEDS: IPRATROPIUM 0.5MG/ALBUTEROL 2.5MG INH SOL UD 3ML (DUONEB)(J7620) NEB SCH ×5 (07:19→23:01)
[2018-03-03] MEDS ORDERED: LevoFLOXacin IV 500 MG in APPROPRIATE DILUENT 1 EA IV SCH (08:00)
[2018-03-03] MEDS ORDERED: FUROSEMIDE 80 MG TAB PO SCH (09:00)
[2018-03-03] MEDS ORDERED: predniSONE 20 MG TAB PO SCH (09:00)
[2018-03-03] MEDS ORDERED: MOXIFLOXACIN HCL 400 MG in APPROPRIATE DILUENT 1 EA IV SCH (09:00)
--- NOTE | 2018-03-03 09:32 | ECGEPIP ---
Stationary ECG Study [facility] - ED Test Date: 2018-03-03 Pat Name: JUDI ROCA Department: Room: - Gender: M Nuclear Medicine Chief Technologist: ANNITA : 1955 Requested By: RADHA SUNDAY Order Number: [id number] Reading MD: Esau Nielson Measurements Intervals [place] Rate: 99 P: 64 MA: 202 QRS: -76 QRSD: 114 T: 41 QT: 350 QTc: 451 Interpretive Statements SINUS RHYTHM RAD PATTERN CONSISTENT WITH PULMONARY DISEASE INCOMPLETE RIGHT BUNDLE BRANCH BLOCK INFERIOR MYOCARDIAL INFARCTION, PROBABLY OLD CW 04/10/[address] T WAVE CHANGES Electronically Signed On 03-03-2018 9:32:38 EST by Esau Nielson
[2018-03-03 09:35] LABS: C REACTIVE PROTEIN QUANTITATIV 5.27 MG/DL (0.00-0.30); CPK CREATINE PHOSPHOKINASE 141 U/L (39-308); MB/CK RELATIVE INDEX 1.42 (< OR =4); TROPONIN I < 0.02 NG/ML (< 0.10)
--- NOTE | 2018-03-03 10:05 | REP ---
AP PORTABLE CHEST: 03/03/2018. Comparison: 04/10/2017. Clinical history: Dyspnea. Findings: Lungs are hyperinflated. There is underlying interstitial fibrotic change. Heart size prominent along with bilateral epicardial fat pads above the diaphragm is increased density that may be subsegmental atelectasis or patchy infiltrate superimposed on fibrosis. No gross effusion. The aorta is tortuous and calcified. Airway intact. Mediastinal contours unchanged from last year's examination. There is some venous hypertension. No mariela edema. Impression: 1. Cardiomegaly, pulmonary venous hypertension and some underlying interstitial fibrosis. No mariela edema or definite effusion. 2. Heavier basilar fibrotic changes and superimposed patchy atelectasis or infiltrate could be present on the left more than right. Epicardial fat pads add to the basilar density more on the left than right. 3. Tortuous ectatic aorta unchanged. Electronically Signed by Peng Crawley MD 03/03/2018 10:21 A
[2018-03-03] MEDS: VITAMIN D 1,000 INTERNATIONAL UNITS TABLET PO SCH (10:21)
[2018-03-03] MEDS: OMEPRAZOLE 20 MG CAP PO SCH (10:21)
[2018-03-03] MEDS: POTASSIUM CHLORIDE 10 MEQ SR TABLET PO SCH ×2 (10:21→21:38)
[2018-03-03] MEDS: methylPREDNISolone INJ 125 MG/2 ML VIAL (J2930) IV SCH ×3 (10:21→23:52)
[2018-03-03] MEDS: SYMBICORT 160/4.5MCG INHALER 6GM INH SCH ×2 (12:20→21:31)
[2018-03-03] MEDS: ISOSORBIDE MON. (IMDUR) 60 MG XR TAB PO SCH (13:51)
[2018-03-03 13:55] LABS: CPK CREATINE PHOSPHOKINASE 208 U/L (39-308); MB/CK RELATIVE INDEX 1.06 (< OR =4); TROPONIN I < 0.02 NG/ML (< 0.10)
[2018-03-03 14:00] VITALS: BP 123/95
[2018-03-03] MEDS: MOXIFLOXACIN HCL 400 MG in APPROPRIATE DILUENT 1 EA IV SCH (15:59)
[2018-03-03] MEDS: FUROSEMIDE 40 MG TAB PO SCH (17:00)
[2018-03-03] MEDS: MULTIVITAMINS/MINERALS THERAP 1 TAB PO SCH (21:38)
[2018-03-03 22:00] VITALS: BP 147/72
[2018-03-04] MEDS: IPRATROPIUM 0.5MG/ALBUTEROL 2.5MG INH SOL UD 3ML (DUONEB)(J7620) NEB SCH ×6 (04:00→23:11)
[2018-03-04] MEDS: HEPARIN SOD (PORCINE) 5000 UNITS/ML VIAL SC SCH ×3 (05:45→21:33)
[2018-03-04 05:52] LABS: HEMATOCRIT 43.4 % (42.0-52.0); HEMOGLOBIN 13.9 g/dl (13.5-17.5); MEAN CORPUSCULAR HEMOGLOBIN 29.6 pg (27.0-33.0); MEAN CORPUSCULAR VOLUME 92.3 fl (80.0-96.0); PLATELET COUNT, AUTOMATED 231 10^3/uL (150-450); WHITE BLOOD COUNT 17.9 10^3/uL (4.0-10.0)
[2018-03-04 06:00] VITALS: BP 133/65
[2018-03-04 06:22] LABS: BLOOD UREA NITROGEN 27 MG/DL (7-18); C REACTIVE PROTEIN QUANTITATIV 4.93 MG/DL (0.00-0.30); CALCIUM LEVEL 8.8 MG/DL (8.8-10.2); CARBON DIOXIDE LEVEL 27 MEQ/L (21-32); CHLORIDE LEVEL 106 MEQ/L (98-107); CREATININE FOR GFR 1.11 MG/DL (0.70-1.30); GLOMERULAR FILTRATION RATE > 60.0 (>49); GLUCOSE, FASTING 136 MG/DL (70-100); POTASSIUM SERUM 4.1 MEQ/L (3.5-5.1); SODIUM LEVEL 141 MEQ/L (136-145)
--- NOTE | 2018-03-04 07:30 | IPN ---
DATE: 03/03/2018 Patient seen and examined, admitted overnight. Continues to report coughing productive of yellow phlegm, shortness of breath without wheezing. Reported chest tightness with cough, denies any fevers or chills. VITAL SIGNS: Temperature 99.3, pulse 93, respirations 20, blood pressure 161/85, pulse oximetry 93% on 2 liters nasal cannula. LABORATORIES: WBC 17.1, hemoglobin and hematocrit 14.4/44/9, platelets 211. Chemistries: Sodium 141, potassium 4.1, chloride 106, bicarb 26, BUN 22, creatinine 1.21, cardiac enzymes negative times two. PHYSICAL EXAMINATION: GENERAL: Patient alert, comfortable, morbidly obese, in no acute distress. HEENT: Normocephalic, atraumatic. PULMONARY: Bilateral expiratory wheeze, prolonged expiratory phase. Minimal rhonchi. CARDIAC: Regular, S1 and S2. ABDOMEN: Soft, nontender. Positive bowel sounds. EXTREMITIES: Trace edema bilateral lower extremities. ASSESSMENT/PLAN: This is a 63-year-old gentleman with underlying medical history of chronic obstructive pulmonary disease (COPD) on 2 liters of oxygen at home, diastolic congestive heart failure (CHF), psoriasis, gastroesophageal reflux disease (GERD), morbid obesity, obstructive sleep apnea (CHAYITO) noncompliant with CPAP, diastolic congestive heart failure, presented with shortness of breath and cough for the past three days. PROBLEMS: 1. Acute COPD exacerbation secondary to community acquired bacterial pneumonia. Avelox for antibiotics. Continue nebulizer treatment. Symbicort, Solu-Medrol, taper as tolerated. Follow-up respiratory panel, follow-up cultures, follow-up C-reactive protein. 2. Chronic hypoxic respiratory failure on oxygen at home, secondary to COPD. Will continue oxygen supplementation. ABG is appreciated. 3. History of diastolic congestive heart failure, secondary to right heart failure, pulmonary artery hypertension. Continue diuresis. Strict intake and output and daily weight. Serial cardiac enzymes. 4. Chest pain. Likely secondary to cough and pneumonia. Cardiac enzymes have been negative times two. Continue follow-up telemetry. 5. Morbid obesity, complicating care. 6. Obstructive sleep apnea (CHAYITO), patient noncompliant with CPAP. 7. Gastroesophageal reflux disease (GERD). Continue proton pump inhibitor (PPI). 8. Mild creatinine elevation. Monitor BUN and creatinine. 9. Hypertension. Imdur has been added. 10. Deep vein thrombosis (DVT) prophylaxis. Heparin subcu. DISPOSITION: Pending clinical improvement.
--- NOTE | 2018-03-04 07:48 | HPE ---
DATE OF ADMISSION: 03/03/2018 CHIEF COMPLAINT: Cough with shortness of breath. HISTORY OF PRESENT ILLNESS: The patient is 63-year-old male with significant past medical history of chronic respiratory failure secondary to chronic obstructive pulmonary disease (COPD) on 2 liters oxygen at home. Diastolic congestive heart failure (CHF), obstructive sleep apnea not compliant with his continuous positive airway pressure (CPAP), morbid obesity and acid reflux. He presents to the emergency room with worsening dyspnea on exertion, wheezing, and cough with a whitish productive sputum that started earlier on the day yesterday. The patient with underlying chronic obstructive pulmonary disease usually coughs; however, he states his sputum production became increased. He endorses subjective fevers and chills. He denies any chest pain. He denies any orthopnea. Has chronic peripheral edema. Denies any urinary symptoms, abdominal pain, constipation or diarrhea. PAST MEDICAL HISTORY: See history of the present illness (HPI). PAST SURGICAL HISTORY: He has had bilateral knee surgery. HOME MEDICATIONS: Include: - albuterol - DuoNebs - Symbicort - Lasix - omeprazole - potassium chloride - multivitamin ALLERGIES: To PENICILLINS, PENICILLIN CROSS REACTORS. Reactions are unknown. SOCIAL HISTORY: He is a former smoker. Denies alcohol or illicit drug use. FAMILY HISTORY: Heart disease, diabetes, cancers (types unknown). REVIEW OF SYSTEMS: A 12-point review of systems was completed, all of which were negative except those listed in the history of the present illness. VITAL SIGNS ON ADMISSION: Temperature 99.3, pulse of 113, respiratory rate of 23, saturating at 95% on 3 liters of nasal cannula. Blood pressure of 182/81. PHYSICAL EXAMINATION: General: He is an obese male, in no apparent distress. Head is normocephalic, atraumatic. Eyes: Extraocular movements are intact. Pupils equal, round, reactive to light. Neck is supple. No jugular venous pressure (JVP). Lungs: Clear to auscultation. No crackles or wheezes. Cardiovascular: Regular rate and rhythm. No discernible murmurs. Abdomen: Obese, nontender, nondistended, positive bowel sounds. No rebound or guarding. Extremities: With 2+ edema and no calf tenderness. Skin: Intact. No rashes, lesions or breakdowns. Neurological: He is alert and oriented (A and O) times three. No focal deficits. LABORATORIES AND IMAGING COMPLETED IN THE EMERGENCY ROOM: White count of 17, hemoglobin and hematocrit (H and H) of 14/44, platelet count of 211. Arterial blood gas (ABG) shows a pH of 7.4, 37, 62, 27, 93. Chemistry shows a BUN and creatinine of 22/1.21. IMAGING DONE IN THE EMERGENCY ROOM: CT angiogram of the chest shows no pulmonary embolism (PE), emphysema, an area of consolidation and a nearby focal ground-glass opacity in the left lower lobe probably due to pneumonia. ASSESSMENT AND PLAN: 1. Acute on chronic respiratory failure with hypoxia due to sepsis secondary to community-acquired pneumonia. Will treat the patient with Rocephin and azithromycin, sputum culture and Tylenol as needed, oxygen as needed to keep oxygen saturations in the 89% to 92%. 2. Diastolic congestive heart failure (CHF). The patient does have some pitting edema but no pulmonary edema on the CT angiogram. His brain natriuretic peptide (BNP) is unremarkable. We will continue his Lasix at home dose of 80 mg, 40 mg twice a day. 3. For chronic obstructive pulmonary disease (COPD), we will also continue his Symbicort. We will also place the patient on standing nebulizers and prednisone 40 mg oral daily. 4. For gastroesophageal reflux disease (GERD), we will continue his proton pump inhibitor (PPI) omeprazole. 5. The patient also states he has a history of a questionable aortic aneurysm. I am unsure if this is the actual diagnosis. The patient states he follows with cardiology, Dr. Tovar. 6. Supportive deep vein thrombosis (DVT) prophylaxis. Heparin subcutaneous. 7. Gastrointestinal (GI) prophylaxis. He is on Prilosec. 8. Diet: Cardiac, fluid restriction.
[2018-03-04] MEDS: SYMBICORT 160/4.5MCG INHALER 6GM INH SCH ×2 (07:52→20:44)
[2018-03-04] MEDS: VITAMIN D 1,000 INTERNATIONAL UNITS TABLET PO SCH (08:38)
[2018-03-04] MEDS: POTASSIUM CHLORIDE 10 MEQ SR TABLET PO SCH ×2 (08:38→20:18)
[2018-03-04] MEDS: FUROSEMIDE 40 MG TAB PO SCH ×2 (08:38→17:24)
[2018-03-04] MEDS: methylPREDNISolone INJ 125 MG/2 ML VIAL (J2930) IV SCH ×2 (08:39→20:18)
[2018-03-04] MEDS: OMEPRAZOLE 20 MG CAP PO SCH (08:39)
[2018-03-04] MEDS: ISOSORBIDE MON. (IMDUR) 60 MG XR TAB PO SCH (08:39)
[2018-03-04 11:26] LABS: HEPATITIS B SURFACE ANTIBODY POSITIVE (POSITIVE); HEPATITIS B SURFACE ANTIGEN NEGATIVE (NEGATIVE)
[2018-03-04 14:00] VITALS: BP 127/69
--- NOTE | 2018-03-04 15:31 | IPNPDOC ---
Date Seen The patient was seen on 03/04/18. Progress Note SUBJECTIVE: 63 year old male was seen and examined today at beside. He is sitting comfortably in no acute distress. He has no complaint this morning. He is in a joking mode and was very pleasant to talk too. He denies any chest pain, worsening SOB, nausea, vomiting diarrhea or constipation. Has good urine outpit and had a bowl movement with no problem. He is tolerating his meals and medication with no problem. He does complaining of a phlegmy cough which he is unable to produce for the sputum sample. He state it just "get stuck in my throat". He denies using his EZPAP or Acapella since he has been here but he will start using it today. He has no other complaints today. OBJECTIVE PHYSICAL EXAMINATION: VITAL SIGNS: Please see below. GENERAL: Patient alert, comfortable, morbidly obese, in no acute distress on baseline 2L O2 HEENT: Normocephalic, atraumatic. CARDIOVASCULAR: Regular rate and rhythm no audible murmurs. RESPIRATORY: Bilateral expiratory wheeze, prolonged expiratory phase in the upper lobes with diminished breath sound L with very poor aeration. ABDOMINAL: Obese round nontender abdomen. Positive bowel sounds. EXTREMITIES: No LE edema noted. NEUROLOGICAL: No Focal Deficit. PSYCHOLOGICAL: Normal Affect PHYSICAL EXAMINATION: GENERAL: Patient alert, comfortable, morbidly obese, in no acute distress. HEENT: Normocephalic, atraumatic. PULMONARY: Bilateral expiratory wheeze, prolonged expiratory phase. Minimal rhonchi. LABORATORY DATA, IMAGING STUDIES, MICROBIOLOGY: Please see below. DVT prophylaxis ordered?: Y, Heparin SubQ ASSESSMENT/PLAN This is a 63-year-old gentleman with underlying medical history of chronic obstructive pulmonary disease (COPD) on 2 liters of oxygen at home, diastolic congestive heart failure (CHF), psoriasis, gastroesophageal reflux disease (GERD), morbid obesity, obstructive sleep apnea (CHAYITO) noncompliant with CPAP, diastolic congestive heart failure, presented with shortness of breath and cough for three days. 1. Acute COPD exacerbation secondary to community acquired bacterial pneumonia. Respiratory panel- negative. Sputum culture pending. Continue with Avelox for at least 5 days. Continue nebulizer treatment. Symbicort, Solu-Medrol taper as tolerated. CRP downtrending even thought WBC have plateaued which is likely due to steroids. Blood culturex2 No growth 24 hours. Once transitioned to PO steriods possible D.C in 24-48 hours. Encouraged to use EZ-pap and Blue acapella. 2. Chronic hypoxic respiratory failure on oxygen at home, secondary to COPD. Will continue oxygen supplementation. 3. History of diastolic congestive heart failure, secondary to right heart failure, pulmonary artery hypertension. Continue PO diuresis. Strict intake and output and daily weight. 4. Chest discomfort (improving). Likely secondary to cough and pneumonia. Cardiac enzymes have been negative X3. 5. Morbid obesity, complicating care. 6. Obstructive sleep apnea (CHAYITO), patient noncompliant with CPAP. 7. Gastroesophageal reflux disease (GERD). Continue proton pump inhibitor (PPI). 8. Mild creatinine elevation. improving. will continue to monitor. 9. Hypertension. (Controlled) c/w Imdur 10. Deep vein thrombosis (DVT) prophylaxis. Heparin subcu. 11. Hospital Bed at home. Patient has history of diastolic congestive heart failure, secondary to right heart failure from increased pulmonary artery hypertension due to COPD. He requires a bed that can be elevated more than 30 degree for most of the time. He also requires frequent changes in body position and/or has immediate need for a change in body position. Script provided for patient. VS, I&O, 24H, Arambondaniel Vital Signs/I&O Vital Signs Date Time Temp Pulse Resp B/P (MAP) Pulse Ox O2 Delivery O2 Flow Rate FiO2 03/04/18 10:58 3.0 03/04/18 08:39 133/65 03/04/18 06:00 97.6 83 21 94 Nasal Cannula I&O- Last 24 Hours up to 6 AM 03/04/18 06:00 Intake Total 1520 ml Output Total 1650 ml Balance -130 ml Laboratory Data 24H LABS Laboratory Tests 2 03/04/18 05:31: Nucleated Red Blood Cells % (auto) 0.0, Anion Gap 8, Glomerular Filtration Rate > 60.0, Blood Urea Nitrogen 27H, Creatinine 1.11, Sodium Level 141, Potassium Level 4.1, Chloride Level 106, Carbon Dioxide Level 27, Calcium Level 8.8, C- Reactive Protein, Quantitative 4.93H CBC/BMP Laboratory Tests 03/04/18 05:31 Red Blood Count 4.70, Mean Corpuscular Volume 92.3, Mean Corpuscular Hemoglobin 29.6, Mean Corpuscular Hemoglobin Concent 32.0, Red Cell Distribution Width 14.6 H, Calcium Level 8.8 Microbiology Microbiology 03/03/18 Blood Culture - Preliminary, Resulted No growth after 24 hours . All specim... 03/03/18 Blood Culture - Preliminary, Resulted No growth after 24 hours . All specim... 03/04/18 Gram Stain - Final, Complete 03/04/18 Sputum Culture - Final, Complete 03/03/18 Respiratory Virus Panel (PCR) (MIKAELA) - Final, Complete GME ATTESTATION GME ATTESTATION My faculty preceptor for this patient encounter was physically present during th e encounter and was fully available. All aspects of the patient interview, examination, medical decision making process, and medical care plan development were reviewed and approved by the faculty preceptor. The faculty preceptor is aware and concurs with the plan as stated in the body of this note and will attest to such by his/her cosignature. ATTENDING NOTE I have both independently examined this patient as well as reviewed the note I have discussed in detail the findings and plan of treatment as documented in the note. I will continue to follow the patient and offer further guidance to the patients care as necessary during this hospital stay. ANGELO Rachel MD, DO Mar 04, 2018 15:30 JOSEPHINE THOMAS MD Mar 04, 2018 19:03
[2018-03-04] MEDS: MOXIFLOXACIN HCL 400 MG in APPROPRIATE DILUENT 1 EA IV SCH (15:32)
[2018-03-04] MEDS: MULTIVITAMINS/MINERALS THERAP 1 TAB PO SCH (20:18)
[2018-03-04 22:00] VITALS: BP 145/67
[2018-03-05] MEDS: HEPARIN SOD (PORCINE) 5000 UNITS/ML VIAL SC SCH ×3 (05:22→21:07)
[2018-03-05] MEDS: IPRATROPIUM 0.5MG/ALBUTEROL 2.5MG INH SOL UD 3ML (DUONEB)(J7620) NEB SCH ×2 (05:43→07:25)
[2018-03-05 06:00] VITALS: BP 132/62
[2018-03-05 06:35] LABS: HEMATOCRIT 42.3 % (42.0-52.0); HEMOGLOBIN 13.5 g/dl (13.5-17.5); MEAN CORPUSCULAR HEMOGLOBIN 29.6 pg (27.0-33.0); MEAN CORPUSCULAR HGB CONC 31.9 g/dl (32.0-36.5); MEAN CORPUSCULAR VOLUME 92.8 fl (80.0-96.0); PLATELET COUNT, AUTOMATED 225 10^3/uL (150-450); RED BLOOD COUNT 4.56 10^6/uL (4.30-6.10); WHITE BLOOD COUNT 18.5 10^3/uL (4.0-10.0)
[2018-03-05 06:52] LABS: BLOOD UREA NITROGEN 22 MG/DL (7-18); C REACTIVE PROTEIN QUANTITATIV 1.84 MG/DL (0.00-0.30); CALCIUM LEVEL 8.3 MG/DL (8.8-10.2); CARBON DIOXIDE LEVEL 26 MEQ/L (21-32); CHLORIDE LEVEL 107 MEQ/L (98-107); CREATININE FOR GFR 0.97 MG/DL (0.70-1.30); GLOMERULAR FILTRATION RATE > 60.0 (>49); GLUCOSE, FASTING 119 MG/DL (70-100); POTASSIUM SERUM 3.6 MEQ/L (3.5-5.1); SODIUM LEVEL 142 MEQ/L (136-145)
[2018-03-05] MEDS: SYMBICORT 160/4.5MCG INHALER 6GM INH SCH ×2 (07:24→21:00)
[2018-03-05] MEDS: methylPREDNISolone INJ 125 MG/2 ML VIAL (J2930) IV SCH (07:59)
[2018-03-05] MEDS: ISOSORBIDE MON. (IMDUR) 60 MG XR TAB PO SCH (07:59)
[2018-03-05] MEDS: VITAMIN D 1,000 INTERNATIONAL UNITS TABLET PO SCH (08:00)
[2018-03-05] MEDS: POTASSIUM CHLORIDE 10 MEQ SR TABLET PO SCH ×2 (08:00→20:16)
[2018-03-05] MEDS: OMEPRAZOLE 20 MG CAP PO SCH (08:00)
[2018-03-05] MEDS: FUROSEMIDE 40 MG TAB PO SCH (08:00)
[2018-03-05] MEDS ORDERED: LEVALBUTEROL 1.25 MG/0.5 ML CONCENTRATE NEB INH PRN (09:15)
--- NOTE | 2018-03-05 09:16 | IPNPDOC ---
Date Seen The patient was seen on 03/05/18. Progress Note SUBJECTIVE: Patient seen and examined at the bedside. chart has been reviewed. still with productive of yellow sputum shortness of breath without wheezing. chest tightness with cough, denies any fevers or chills. OBJECTIVE: VITAL SIGNS: REVIEWED, PLS SEE BELOW PHYSICAL EXAMINATION: GENERAL: Patient alert, comfortable, morbidly obese, in no acute distress. HEENT: Normocephalic, atraumatic. PULMONARY: Bilateral expiratory wheeze, prolonged expiratory phase. Minimal rhonchi. CARDIAC: Regular, S1 and S2. ABDOMEN: Soft, nontender. Positive bowel sounds. EXTREMITIES: chronic lymphedema. LABORATORY DATA, IMAGING STUDIES, MICROBIOLOGY: REVIEWED, PLS SEE BELOW ASSESSMENT/PLAN: This is a 63-year-old gentleman with underlying medical history of chronic obstructive pulmonary disease (COPD) on 2 liters of oxygen at home, diastolic congestive heart failure (CHF), psoriasis, gastroesophageal reflux disease (GERD), morbid obesity, obstructive sleep apnea (CHAYITO) noncompliant with CPAP, diastolic congestive heart failure, presented with shortness of breath and cough for the past three days. PROBLEMS: 1. Acute COPD exacerbation secondary to community acquired bacterial pneumonia. Avelox for antibiotics. Continue nebulizer treatment. Symbicort, Solu-Medrol, taper as tolerated. Follow-up respiratory panel, follow-up cultures, follow-up C-reactive protein. 2. Chronic hypoxic respiratory failure on oxygen at home, secondary to COPD. Will continue oxygen supplementation. ABG is appreciated. 3. History of diastolic congestive heart failure, secondary to right heart failure, pulmonary artery hypertension. Continue iv diuresis. Strict intake and output and daily weight. Serial cardiac enzymes.net negative balance and serial mg and mp. 4. Chest pain. Likely secondary to cough and pneumonia. Cardiac enzymes have been negative times two. dc telemetry 5. Morbid obesity, complicating care. 6. Obstructive sleep apnea (CHAYITO), patient noncompliant with CPAP. 7. Gastroesophageal reflux disease (GERD). Continue proton pump inhibitor (PPI). 8. Mild creatinine elevation. Monitor BUN and creatinine. 9. Hypertension. Imdur has been added. 10. Deep vein thrombosis (DVT) prophylaxis. Heparin subcu. VS, I&O, 24H, Fishbone Vital Signs/I&O Vital Signs Date Time Temp Pulse Resp B/P (MAP) Pulse Ox O2 Delivery O2 Flow Rate FiO2 03/05/18 06:00 97.4 86 16 132/62 (85) 95 Nasal Cannula 2.0 I&O- Last 24 Hours up to 6 AM 03/05/18 06:00 Intake Total 1450 ml Output Total 1750 ml Balance -300 ml Laboratory Data 24H LABS Laboratory Tests 2 03/05/18 05:36: Nucleated Red Blood Cells % (auto) 0.0 CBC/BMP Laboratory Tests 03/05/18 05:36 Red Blood Count 4.56, Mean Corpuscular Volume 92.8, Mean Corpuscular Hemoglobin 29.6, Mean Corpuscular Hemoglobin Concent 31.9 L, Red Cell Distribution Width 14.9 H Microbiology Microbiology 03/03/18 Blood Culture - Preliminary, Resulted No growth after 24 hours . All specim... 03/03/18 Blood Culture - Preliminary, Resulted No Growth after 48 hours. All Specime... 03/04/18 Gram Stain - Final, Complete 03/04/18 Sputum Culture - Final, Complete 03/03/18 Respiratory Virus Panel (PCR) (MIKAELA) - Final, Complete MURRAY KAUR MD Mar 05, 2018 06:42
[2018-03-05] MEDS: FUROSEMIDE 20 MG/2 ML VIAL (J1940) IV SCH ×3 (11:11→20:17)
[2018-03-05] MEDS: LEVALBUTEROL 1.25 MG/0.5 ML CONCENTRATE NEB INH SCH ×4 (11:15→23:20)
[2018-03-05 12:40] LABS: BLOOD UREA NITROGEN 20 MG/DL (7-18); CALCIUM LEVEL 8.5 MG/DL (8.8-10.2); CARBON DIOXIDE LEVEL 28 MEQ/L (21-32); CHLORIDE LEVEL 104 MEQ/L (98-107); CREATININE FOR GFR 1.09 MG/DL (0.70-1.30); GLOMERULAR FILTRATION RATE > 60.0 (>49); GLUCOSE, FASTING 156 MG/DL (70-100); MAGNESIUM LEVEL 2.5 MG/DL (1.8-2.4); SODIUM LEVEL 139 MEQ/L (136-145)
[2018-03-05] MEDS: methylPREDNISolone INJ 40 MG/1 ML VIAL (J2920) IV SCH ×2 (13:51→20:16)
[2018-03-05 14:00] VITALS: BP 129/72
[2018-03-05 19:01] LABS: BLOOD UREA NITROGEN 20 MG/DL (7-18); CALCIUM LEVEL 8.6 MG/DL (8.8-10.2); CARBON DIOXIDE LEVEL 28 MEQ/L (21-32); CHLORIDE LEVEL 105 MEQ/L (98-107); CREATININE FOR GFR 1.11 MG/DL (0.70-1.30); GLOMERULAR FILTRATION RATE > 60.0 (>49); GLUCOSE, FASTING 191 MG/DL (70-100); SODIUM LEVEL 140 MEQ/L (136-145)
[2018-03-05] MEDS: MULTIVITAMINS/MINERALS THERAP 1 TAB PO SCH (20:16)
[2018-03-05 22:00] VITALS: BP 142/77
[2018-03-06 00:20] LABS: BLOOD UREA NITROGEN 19 MG/DL (7-18); CALCIUM LEVEL 8.4 MG/DL (8.8-10.2); CARBON DIOXIDE LEVEL 29 MEQ/L (21-32); CHLORIDE LEVEL 106 MEQ/L (98-107); CREATININE FOR GFR 0.98 MG/DL (0.70-1.30); GLOMERULAR FILTRATION RATE > 60.0 (>49); GLUCOSE, FASTING 154 MG/DL (70-100); POTASSIUM SERUM 3.9 MEQ/L (3.5-5.1); SODIUM LEVEL 141 MEQ/L (136-145)
[2018-03-06] MEDS: FUROSEMIDE 20 MG/2 ML VIAL (J1940) IV SCH ×7 (00:26→23:40)
[2018-03-06] MEDS: methylPREDNISolone INJ 40 MG/1 ML VIAL (J2920) IV SCH ×4 (02:14→21:05)
[2018-03-06] MEDS: LEVALBUTEROL 1.25 MG/0.5 ML CONCENTRATE NEB INH SCH ×5 (04:00→20:00)
[2018-03-06] MEDS: HEPARIN SOD (PORCINE) 5000 UNITS/ML VIAL SC SCH ×3 (05:14→21:05)
[2018-03-06 05:59] LABS: HEMATOCRIT 45.8 % (42.0-52.0); HEMOGLOBIN 14.7 g/dl (13.5-17.5); MEAN CORPUSCULAR HEMOGLOBIN 29.9 pg (27.0-33.0); MEAN CORPUSCULAR HGB CONC 32.1 g/dl (32.0-36.5); MEAN CORPUSCULAR VOLUME 93.3 fl (80.0-96.0); PLATELET COUNT, AUTOMATED 231 10^3/uL (150-450); RED BLOOD COUNT 4.91 10^6/uL (4.30-6.10); WHITE BLOOD COUNT 16.7 10^3/uL (4.0-10.0)
[2018-03-06 06:00] VITALS: BP 130/68
[2018-03-06 06:24] LABS: BLOOD UREA NITROGEN 19 MG/DL (7-18); CALCIUM LEVEL 8.6 MG/DL (8.8-10.2); CARBON DIOXIDE LEVEL 29 MEQ/L (21-32); CHLORIDE LEVEL 104 MEQ/L (98-107); CREATININE FOR GFR 1.02 MG/DL (0.70-1.30); GLOMERULAR FILTRATION RATE > 60.0 (>49); GLUCOSE, FASTING 123 MG/DL (70-100); POTASSIUM SERUM 4.2 MEQ/L (3.5-5.1); SODIUM LEVEL 142 MEQ/L (136-145)
[2018-03-06 06:58] LABS: MAGNESIUM LEVEL 2.6 MG/DL (1.8-2.4)
[2018-03-06] MEDS ORDERED: metOLazone 2.5 MG TAB PO ONE (07:00)
[2018-03-06] MEDS: SYMBICORT 160/4.5MCG INHALER 6GM INH SCH ×2 (07:36→21:58)
--- NOTE | 2018-03-06 09:04 | IPNPDOC ---
Date Seen The patient was seen on 03/06/18. Progress Note SUBJECTIVE: remained net negative since yesterday. pt'ssob is improved. he is sitting on a chair at the bedside. "I re-arranged." He appears less labored with his breathing, but states that he continues to have MASON when moving from bed to bathroom. OBJECTIVE: VITAL SIGNS: REVIEWED, PLS SEE BELOW PHYSICAL EXAMINATION: GENERAL: Patient alert, comfortable, morbidly obese, in no acute distress. HEENT: Normocephalic, atraumatic. PULMONARY: faint expiratory wheeze, prolonged expiratory phase. Minimal rhonchi. improved air entry. CARDIAC: Regular, S1 and S2. ABDOMEN: Soft, nontender. Positive bowel sounds. EXTREMITIES: chronic lymphedema. LABORATORY DATA, IMAGING STUDIES, MICROBIOLOGY: REVIEWED, PLS SEE BELOW ASSESSMENT/PLAN: This is a 63-year-old gentleman with underlying medical history of chronic obstructive pulmonary disease (COPD) on 2 liters of oxygen at home, diastolic congestive heart failure (CHF), psoriasis, gastroesophageal reflux disease (GERD), morbid obesity, obstructive sleep apnea (CHAYITO) noncompliant with CPAP, diastolic congestive heart failure, presented with shortness of breath and cough for the past three days. PROBLEMS: 1. Acute COPD exacerbation secondary to community acquired bacterial pneumonia. Avelox for antibiotics. Continue nebulizer treatment. Symbicort, Solu-Medrol, taper as tolerated. Follow-up respiratory panel, follow-up cultures, follow-up C-reactive protein. 2. Chronic hypoxic respiratory failure on oxygen at home, secondary to COPD. Will continue oxygen supplementation. ABG is appreciated. 3. History of diastolic congestive heart failure, secondary to right heart failure, pulmonary artery hypertension. Continue iv diuresis. Strict intake and output and daily weight. Serial cardiac enzymes.net negative balance and serial mg and mp. 4. Chest pain. Likely secondary to cough and pneumonia. Cardiac enzymes have been negative times two. dc telemetry 5. Morbid obesity, complicating care. 6. Obstructive sleep apnea (CHAYITO), patient noncompliant with CPAP. 7. Gastroesophageal reflux disease (GERD). Continue proton pump inhibitor (PPI). 8. Mild creatinine elevation. Monitor BUN and creatinine. 9. Hypertension. Imdur has been added. 10. Deep vein thrombosis (DVT) prophylaxis. Heparin subcu. disposition: PT clearance. dc plans sunday. VS, I&O, 24H, Fishbone Vital Signs/I&O Vital Signs Date Time Temp Pulse Resp B/P (MAP) Pulse Ox O2 Delivery O2 Flow Rate FiO2 03/05/18 22:09 2.0 03/05/18 22:00 98.7 95 16 142/77 (98) 88 Nasal Cannula I&O- Last 24 Hours up to 6 AM 03/06/18 06:00 Intake Total 1290 ml Output Total 2250 ml Balance -960 ml Laboratory Data 24H LABS Laboratory Tests 2 03/05/18 11:47: Anion Gap 7L, Glomerular Filtration Rate > 60.0, Blood Urea Nitrogen 20H, Creatinine 1.09, Sodium Level 139, Potassium Level 4.0, Chloride Level 104, Carbon Dioxide Level 28, Calcium Level 8.5L, Magnesium Level 2.5H 03/05/18 18:19: Anion Gap 7L, Glomerular Filtration Rate > 60.0, Blood Urea Nitrogen 20H, Creatinine 1.11, Sodium Level 140, Potassium Level 4.0, Chloride Level 105, Carbon Dioxide Level 28, Calcium Level 8.6L 03/05/18 23:54: Anion Gap 6L, Glomerular Filtration Rate > 60.0, Blood Urea Nitrogen 19H, Creatinine 0.98, Sodium Level 141, Potassium Level 3.9, Chloride Level 106, Carbon Dioxide Level 29, Calcium Level 8.4L 03/06/18 05:43: Anion Gap 9, Glomerular Filtration Rate > 60.0, Blood Urea Nitrogen 19H, Creatinine 1.02, Sodium Level 142, Potassium Level 4.2, Chloride Level 104, Carbon Dioxide Level 29, Calcium Level 8.6L, Nucleated Red Blood Cells % (auto) 0.0, C-Reactive Protein, Quantitative 1.10H CBC/BMP Laboratory Tests 03/05/18 11:47 Calcium Level 8.5 L 03/05/18 18:19 Calcium Level 8.6 L 03/05/18 23:54 Calcium Level 8.4 L 03/06/18 05:43 Calcium Level 8.6 L, Red Blood Count 4.91, Mean Corpuscular Volume 93.3, Mean Corpuscular Hemoglobin 29.9, Mean Corpuscular Hemoglobin Concent 32.1, Red Cell Distribution Width 14.6 H Microbiology Microbiology 03/03/18 Blood Culture - Preliminary, Resulted No Growth after 48 hours. All Specime... 03/03/18 Blood Culture - Preliminary, Resulted No Growth after 72 hours. All specime... 03/04/18 Gram Stain - Final, Complete 03/04/18 Sputum Culture - Final, Complete 03/03/18 Respiratory Virus Panel (PCR) ([facility]ELA) - Final, Complete MURRAY KAUR MD Mar 06, 2018 06:48
[2018-03-06] MEDS: POTASSIUM CHLORIDE 10 MEQ SR TABLET PO SCH ×2 (09:48→21:06)
[2018-03-06] MEDS: ISOSORBIDE MON. (IMDUR) 60 MG XR TAB PO SCH (09:48)
[2018-03-06] MEDS: VITAMIN D 1,000 INTERNATIONAL UNITS TABLET PO SCH (09:48)
[2018-03-06] MEDS: OMEPRAZOLE 20 MG CAP PO SCH (09:48)
[2018-03-06] MEDS: MOXIFLOXACIN 400 MG TAB PO SCH (09:48)
[2018-03-06] MEDS ORDERED: PRED10TA2 PO (10:07)
[2018-03-06] MEDS ORDERED: AVEL1TAB3 PO (10:07)
[2018-03-06] MEDS ORDERED: [UNRECOGNIZED DRUG - CODE] XX (10:07)
[2018-03-06] MEDS ORDERED: [UNRECOGNIZED DRUG - CODE] XX (10:07)
[2018-03-06 14:00] VITALS: BP 133/68
[2018-03-06 18:43] LABS: BLOOD UREA NITROGEN 24 MG/DL (7-18); CALCIUM LEVEL 9.3 MG/DL (8.8-10.2); CARBON DIOXIDE LEVEL 31 MEQ/L (21-32); CHLORIDE LEVEL 98 MEQ/L (98-107); CREATININE FOR GFR 1.05 MG/DL (0.70-1.30); GLOMERULAR FILTRATION RATE > 60.0 (>49); GLUCOSE, FASTING 146 MG/DL (70-100); POTASSIUM SERUM 3.9 MEQ/L (3.5-5.1); SODIUM LEVEL 136 MEQ/L (136-145)
[2018-03-06] MEDS: MULTIVITAMINS/MINERALS THERAP 1 TAB PO SCH (21:05)
[2018-03-06 22:00] VITALS: BP 126/92
[2018-03-06 23:30] VITALS: BP 118/73
[2018-03-07] MEDS: methylPREDNISolone INJ 40 MG/1 ML VIAL (J2920) IV SCH ×2 (02:35→07:53)
[2018-03-07] MEDS: LEVALBUTEROL 1.25 MG/0.5 ML CONCENTRATE NEB INH SCH ×6 (04:00→20:00)
[2018-03-07 04:13] VITALS: BP 135/76
[2018-03-07] MEDS: FUROSEMIDE 20 MG/2 ML VIAL (J1940) IV SCH ×6 (04:14→23:36)
[2018-03-07] MEDS: MOXIFLOXACIN 400 MG TAB PO SCH (05:29)
[2018-03-07] MEDS: HEPARIN SOD (PORCINE) 5000 UNITS/ML VIAL SC SCH ×3 (05:30→21:07)
[2018-03-07 06:00] VITALS: BP 151/83
[2018-03-07 06:10] LABS: HEMATOCRIT 47.6 % (42.0-52.0); HEMOGLOBIN 15.6 g/dl (13.5-17.5); MEAN CORPUSCULAR HEMOGLOBIN 29.3 pg (27.0-33.0); MEAN CORPUSCULAR HGB CONC 32.8 g/dl (32.0-36.5); MEAN CORPUSCULAR VOLUME 89.5 fl (80.0-96.0); PLATELET COUNT, AUTOMATED 278 10^3/uL (150-450); RED BLOOD COUNT 5.32 10^6/uL (4.30-6.10); WHITE BLOOD COUNT 19.6 10^3/uL (4.0-10.0)
[2018-03-07 06:21] LABS: BLOOD UREA NITROGEN 27 MG/DL (7-18); C REACTIVE PROTEIN QUANTITATIV 0.74 MG/DL (0.00-0.30); CALCIUM LEVEL 9.2 MG/DL (8.8-10.2); CARBON DIOXIDE LEVEL 34 MEQ/L (21-32); CHLORIDE LEVEL 93 MEQ/L (98-107); GLOMERULAR FILTRATION RATE > 60.0 (>49); GLUCOSE, FASTING 121 MG/DL (70-100); POTASSIUM SERUM 3.8 MEQ/L (3.5-5.1); SODIUM LEVEL 136 MEQ/L (136-145)
[2018-03-07] MEDS: SYMBICORT 160/4.5MCG INHALER 6GM INH SCH ×2 (07:38→21:23)
[2018-03-07] MEDS: OMEPRAZOLE 20 MG CAP PO SCH (07:54)
[2018-03-07] MEDS: VITAMIN D 1,000 INTERNATIONAL UNITS TABLET PO SCH (07:54)
[2018-03-07] MEDS: ISOSORBIDE MON. (IMDUR) 60 MG XR TAB PO SCH (07:54)
[2018-03-07] MEDS: POTASSIUM CHLORIDE 10 MEQ SR TABLET PO SCH ×2 (07:54→21:08)
[2018-03-07] MEDS ORDERED: predniSONE 20 MG TAB PO ONE (08:15)
--- NOTE | 2018-03-07 13:03 | IPNPDOC ---
Date Seen The patient was seen on 03/07/18. Progress Note SUBJECTIVE: With lasix diuresis, pt remains net negative balance with decreased weight from 131 kg to 122 kg with symptomatic improvement with his breathing and LE edema. Pt continues to have dyspnea on exertion, and occasional desaturation in his pulse ox, which resolves with rest. He denies any PND, orthopnea, but says he sleeps slightly elevated even at home. Pt is adamant about seeing another meal packer due to poor rapport with Dr. Seth who he has seen for decades. He feels ready for discharge in AM. pulse oximetry and humidifier scripts sent to his pharmacy. OBJECTIVE: VITAL SIGNS: REVIEWED, PLS SEE BELOW PHYSICAL EXAMINATION: GENERAL: Patient alert, comfortable, morbidly obese, in no acute distress. HEENT: Normocephalic, atraumatic. PULMONARY: faint expiratory wheeze, prolonged expiratory phase. Minimal rhonchi. improved air entry. CARDIAC: Regular, S1 and S2. ABDOMEN: Soft, nontender. Positive bowel sounds. EXTREMITIES: chronic lymphedema. LABORATORY DATA, IMAGING STUDIES, MICROBIOLOGY: REVIEWED, PLS SEE BELOW ASSESSMENT/PLAN: This is a 63-year-old gentleman with underlying medical history of chronic obstructive pulmonary disease (COPD) on 2 liters of oxygen at home, diastolic congestive heart failure (CHF), psoriasis, gastroesophageal reflux disease (GERD), morbid obesity, obstructive sleep apnea (CHAYITO) noncompliant with CPAP, diastolic congestive heart failure, presented with shortness of breath and cough for the past three days. PROBLEMS: 1. Acute COPD exacerbation secondary to community acquired bacterial pneumonia. Avelox for antibiotics. Continue nebulizer treatment. Symbicort, Solu-Medrol, taper as tolerated. Follow-up respiratory panel, follow-up cultures, follow-up C-reactive protein. 2. Chronic hypoxic respiratory failure on oxygen at home, secondary to COPD. Will continue oxygen supplementation. ABG is appreciated. 3. History of diastolic congestive heart failure, secondary to right heart failure, pulmonary artery hypertension. Continue iv diuresis. Strict intake and output and daily weight. Serial cardiac enzymes.net negative balance and serial mg and mp. 4. Chest pain. Likely secondary to cough and pneumonia. Cardiac enzymes have been negative times two. dc telemetry 5. Morbid obesity, complicating care. 6. Obstructive sleep apnea (CHAYITO), patient noncompliant with CPAP. 7. Gastroesophageal reflux disease (GERD). Continue proton pump inhibitor (PPI). 8. Mild creatinine elevation. Monitor BUN and creatinine. 9. Hypertension. Imdur has been added. 10. Deep vein thrombosis (DVT) prophylaxis. Heparin subcu. disposition: dc plans sunday. VS, I&O, 24H, Fishbone Vital Signs/I&O Vital Signs Date Time Temp Pulse Resp B/P (MAP) Pulse Ox O2 Delivery O2 Flow Rate FiO2 03/07/18 07:54 154/72 03/07/18 06:55 92 20 96 Nasal Cannula 2.0 03/07/18 06:00 97.5 I&O- Last 24 Hours up to 6 AM 03/07/18 06:00 Intake Total 1720 ml Output Total 4400 ml Balance -2680 ml Laboratory Data 24H LABS Laboratory Tests 2 03/06/18 18:02: Anion Gap 7L, Glomerular Filtration Rate > 60.0, Blood Urea Nitrogen 24H, Creatinine 1.05, Sodium Level 136, Potassium Level 3.9, Chloride Level 98, Carbon Dioxide Level 31, Calcium Level 9.3 03/07/18 05:44: Anion Gap 9, Glomerular Filtration Rate > 60.0, Blood Urea Nitrogen 27H, Creatinine 1.20, Sodium Level 136, Potassium Level 3.8, Chloride Level 93L, Carbon Dioxide Level 34H, Calcium Level 9.2, Nucleated Red Blood Cells % (auto) 0.0, C-Reactive Protein, Quantitative 0.74H CBC/BMP Laboratory Tests 03/06/18 18:02 Calcium Level 9.3 03/07/18 05:44 Calcium Level 9.2, Red Blood Count 5.32, Mean Corpuscular Volume 89.5, Mean Corpuscular Hemoglobin 29.3, Mean Corpuscular Hemoglobin Concent 32.8, Red Cell Distribution Width 14.4 Microbiology Microbiology 03/03/18 Blood Culture - Preliminary, Resulted No Growth after 72 hours. All specime... 03/03/18 Blood Culture - Preliminary, Resulted No Growth after 72 hours. All specime... 03/04/18 Gram Stain - Final, Complete 03/04/18 Sputum Culture - Final, Complete 03/03/18 Respiratory Virus Panel (PCR) (MIKAELA) - Final, Complete MURRAY KAUR MD Mar 07, 2018 08:10
[2018-03-07 14:00] VITALS: BP 135/79
[2018-03-07 18:46] LABS: BLOOD UREA NITROGEN 33 MG/DL (7-18); CALCIUM LEVEL 9.3 MG/DL (8.8-10.2); CARBON DIOXIDE LEVEL 35 MEQ/L (21-32); CHLORIDE LEVEL 91 MEQ/L (98-107); CREATININE FOR GFR 1.22 MG/DL (0.70-1.30); GLOMERULAR FILTRATION RATE > 60.0 (>49); GLUCOSE, FASTING 153 MG/DL (70-100); POTASSIUM SERUM 3.7 MEQ/L (3.5-5.1); SODIUM LEVEL 135 MEQ/L (136-145)
[2018-03-07] MEDS: MULTIVITAMINS/MINERALS THERAP 1 TAB PO SCH (21:07)
[2018-03-07 22:00] VITALS: BP 156/79
[2018-03-07 23:35] VITALS: BP 136/63
[2018-03-08] MEDS: FUROSEMIDE 20 MG/2 ML VIAL (J1940) IV SCH (04:20)
[2018-03-08] MEDS: MOXIFLOXACIN 400 MG TAB PO SCH (05:16)
[2018-03-08] MEDS: HEPARIN SOD (PORCINE) 5000 UNITS/ML VIAL SC SCH ×2 (05:16→14:00)
[2018-03-08 06:00] VITALS: BP 145/91
[2018-03-08 06:09] LABS: HEMATOCRIT 51.2 % (42.0-52.0); HEMOGLOBIN 16.8 g/dl (13.5-17.5); MEAN CORPUSCULAR HEMOGLOBIN 29.1 pg (27.0-33.0); MEAN CORPUSCULAR HGB CONC 32.8 g/dl (32.0-36.5); MEAN CORPUSCULAR VOLUME 88.7 fl (80.0-96.0); PLATELET COUNT, AUTOMATED 250 10^3/uL (150-450); RED BLOOD COUNT 5.77 10^6/uL (4.30-6.10); WHITE BLOOD COUNT 20.7 10^3/uL (4.0-10.0)
[2018-03-08 06:28] LABS: C REACTIVE PROTEIN QUANTITATIV 0.48 MG/DL (0.00-0.30); CALCIUM LEVEL 9.1 MG/DL (8.8-10.2); CREATININE FOR GFR 1.38 MG/DL (0.70-1.30); GLOMERULAR FILTRATION RATE 55.1 (>49); POTASSIUM SERUM 3.4 MEQ/L (3.5-5.1)
[2018-03-08] MEDS ORDERED: AVEL1TAB3 PO (06:59)
[2018-03-08] MEDS ORDERED: POTASSIUM CHLORIDE 10 MEQ SR TABLET PO ONE (07:00)
[2018-03-08] MEDS: LEVALBUTEROL 1.25 MG/0.5 ML CONCENTRATE NEB INH SCH ×3 (07:26→11:16)
[2018-03-08] MEDS: SYMBICORT 160/4.5MCG INHALER 6GM INH SCH (07:26)
--- NOTE | 2018-03-08 08:18 | DS.PDOC ---
Discharge Summary General Date of Admission Mar 03, 2018 at 05:46 Date of Discharge 03/08/18 Discharge Summary DISCHARGE DIAGNOSES: ACUTE COPD EXACERBATION DECOMPENSATED ACUTE DIASTOLIC CHF EXACERBATION (ADMIT WT 131 KG. DISCHARGE WT 122 KG) COR PULMONALE/RIGHT SIDED HEART FAILURE CHRONIC HYPOXIC RESPIRATORY FAILURE ON 2LITERS OF OXYGEN GERD CHAYITO REFUSES CPAP, UNTREATED MORBID OBESITY BMI 43.7 GERD PSORIASIS DISCHARGE MEDICATIONS: PLS SEE BELOW DISCHARGE INSTRUCTIONS: 1. DO NOT TAKE LASIX ON 03/08/18 DUE TO ACUTE KIDNEY INJURY. 2. MP ON 03/12/18 TO SEE IF CREATININE IS BACK TO BASELINE, AND MAY RESUME LASIX 40 MG BID. 3. 2LITER FLUID RESTRICTION 4. DAILY WEIGHTS: IF >2LB WEIGHT GAIN, CALL YOUR DOCTOR 5. IMMEDIATE FU W [facility] IN 1 WK. HISTORY OF PRESENTING ILLNESS: This is a 63-year-old gentleman with underlying medical history of chronic obstructive pulmonary disease (COPD) on 2 liters of oxygen at home, diastolic congestive heart failure (CHF), psoriasis, gastroesophageal reflux disease (GERD), morbid obesity, obstructive sleep apnea (CHAYITO) noncompliant with CPAP, diastolic congestive heart failure, presented with shortness of breath and cough for the past three days. HOSPITAL COURSE: 1. Acute COPD exacerbation secondary to community acquired bacterial pneumonia. Avelox for antibiotics. Continue nebulizer treatment. Symbicort, Solu-Medrol, taper as tolerated. Follow-up respiratory panel, follow-up cultures, follow-up C-reactive protein. 2. Chronic hypoxic respiratory failure on oxygen at home, secondary to COPD. Will continue oxygen supplementation. ABG is appreciated. 3. History of diastolic congestive heart failure, secondary to right heart failure, pulmonary artery hypertension. Continue iv diuresis. Strict intake and output and daily weight. Serial cardiac enzymes.net negative balance and serial mg and mp.With lasix diuresis, pt remains net negative balance with decreased weight from 131 kg to 122 kg with symptomatic improvement with his breathing and LE edema. Pt continues to have dyspnea on exertion, and occasional desaturation in his p ulse ox, which resolves with rest. He denies any PND, orthopnea, but says he sleeps slightly elevated even at home. Pt is adamant about seeing another wood barker due to poor rapport with Dr. Seth who he has seen for decades. He feels ready for discharge in AM. pulse oximetry and humidifier scripts sent to his pharmacy. 4. Chest pain. Likely secondary to cough and pneumonia. Cardiac enzymes have been negative times two. dc telemetry 5. Morbid obesity, complicating care. 6. Obstructive sleep apnea (CHAYITO), patient noncompliant with CPAP. 7. Gastroesophageal reflux disease (GERD). Continue proton pump inhibitor (PPI). 8. Acute kidney injury due to lasix diuresis. lasix held on 03/08/18, and pt to have repeat mp on 03/12/18 and to resume bid lasix if improved BUN and crea tinine. 9. Hypertension. Imdur has been added. DISCHARGE PHYSICAL EXAMINATION: VITAL SIGNS: REVIEWED, PLS SEE BELOW GENERAL: Patient alert, comfortable, morbidly obese, in no acute distress. HEENT: Normocephalic, atraumatic. PULMONARY: Clear, prolonged expirations. no use of respiratory accessory muscles. improved air entry. CARDIAC: Regular, S1 and S2. ABDOMEN: Soft, nontender. Positive bowel sounds. EXTREMITIES: chronic lymphedema. LABORATORY DATA, IMAGING STUDIES, MICROBIOLOGY: REVIEWED, PLS SEE BELOW EXAM: CT Angiography Chest With Contrast EXAM DATE/TIME: 03/03/2018 3:28 AM CLINICAL HISTORY: 63 years old, male; Signs and symptoms; Shortness of breath; Additional info: Dysp TECHNIQUE: Axial computed tomographic angiography images of the chest with intravenous contrast using CT angiography protocol. All CT scans at this facility use at least one of these dose optimization techniques: automated exposure control; mA and/or kV adjustment per patient size (includes targeted exams where dose is matched to clinical indication); or iterative reconstruction. Coronal and sagittal reformatted images were created and reviewed. MIP reconstructed images were created and reviewed. CONTRAST: 75 ml of ISO 370 administered intravenously. COMPARISON: CT ANGIO CHEST 08/25/2016 8:31 PM FINDINGS: Pulmonary arteries: The pulmonary arteries are borderline in size.No filling defects are seen to indicate an acute pulmonary embolism. Aorta: The aorta demonstrates mild atherosclerotic calcification. There is no thoracic aortic aneurysm or evidence of dissection. Lungs: Moderate centrilobular emphysematous changes are present. There is a poorly defined, somewhat rounded area of consolidation posteromedially in the left lower lobe, measuring approximately 3 cm in diameter. There is a sub-solid 1.7 cm groundglass density slightly further superiorly in the left lower lobe (image 134 of series 401). Predominantly linear densities are seen in the right middle lobe and lingula, likely chronic atelectasis or postinflammatory scarring as they appear unchanged compared to the prior exam. Pleural space: There are no pleural effusions present. Heart: Normal. No cardiomegaly. No pericardial effusion. Upper abdomen: The visualized upper abdomen structures are unremarkable. Lymph nodes: No lymphadenopathy is seen. Bones/joints: Mild degenerative endplate changes are seen at multiple levels in the visualized spine. No suspicious osseous lesions. No acute fractures or dislocations. Soft tissues: Unremarkable. IMPRESSION: 1. No evidence of acute pulmonary embolism. 2. Emphysema. 3. Area of consolidation and nearby focal groundglass opacity in the left lower lobe, probably due to pneumonia, but as they are focal, followup is recommended after appropriate therapy to ensure resolution. Electronically signed by: Jethro Castellano On 03/03/2018 04:27:46 AM DD: JETHRO CASTELLANO MD 03/03/18 0328 DT: MELISSA 03/03/18 0427 DS: KACEY 03/03/18 0427 TIME SPENT ON DISCHARGE: 30 MINUTES. Vital Signs/I&Os Vital Signs Date Time Temp Pulse Resp B/P (MAP) Pulse Ox O2 Delivery O2 Flow Rate FiO2 03/08/18 06:28 86 18 96 Nasal Cannula 2.0 03/08/18 06:00 96.9 145/91 (109) I&O- Last 24 Hours up to 6 AM 03/08/18 05:59 Intake Total 1130 ml Output Total 3550 ml Balance -2420 ml Laboratory Data Labs 24H Laboratory Tests 2 03/07/18 18:01: Anion Gap 9, Glomerular Filtration Rate > 60.0, Blood Urea Nitrogen 33H, Creatinine 1.22, Sodium Level 135L, Potassium Level 3.7, Chloride Level 91L, Carbon Dioxide Level 35H, Calcium Level 9.3 03/08/18 05:52: Anion Gap 9, Glomerular Filtration Rate 55.1, Blood Urea Nitrogen 34H, Creatinine 1.38H, Sodium Level 138, Potassium Level 3.4L, Chloride Level 93L, Carbon Dioxide Level 36H, Calcium Level 9.1, Nucleated Red Blood Cells % (auto) 0.0, C-Reactive Protein, Quantitative 0.48H CBC/BMP Laboratory Tests 03/07/18 18:01 Calcium Level 9.3 03/08/18 05:52 Calcium Level 9.1, Red Blood Count 5.77, Mean Corpuscular Volume 88.7, Mean Corpuscular Hemoglobin 29.1, Mean Corpuscular Hemoglobin Concent 32.8, Red Cell Distribution Width 14.4 Microbiology Microbiology 03/03/18 Blood Culture - Preliminary, Resulted No Growth after 72 hours. All specime... 03/03/18 Blood Culture - Final, Complete NO GROWTH AFTER 5 DAYS 03/04/18 Gram Stain - Final, Complete 03/04/18 Sputum Culture - Final, Complete 03/03/18 Respiratory Virus Panel (PCR) (MIKAELA) - Final, Complete Discharge Medications Scheduled Budesonide/Formoterol (Symbicort 160-4.5 Mcg/Act) 60 Puff/Inhaler Aers, 2 PUFFS INH BID, (Reported) Cholecalciferol (Vitamin D) 1,000 Unit Tab, 1,000 UNIT PO DAILY, (Reported) Moxifloxacin Hydrochloride (Avelox) 400 Mg Tab, 400 MG PO DAILY Multivitamins *[facility] STOCKED* (Thera M Plus *[facility] STOCKED*) 1 Tab Tab, 1 TAB PO QHS, (Reported) Omeprazole (Omeprazole) 20 Mg Cap, 20 MG PO DAILY, (Reported) Potassium Chloride (Potassium Chloride ER) 20 Meq Tab, 20 MEQ PO BID, (Reported) Prednisone (Prednisone) 10 Mg Tab, 10 MG PO TAPER Take 4 tabs daily x 3 days, then 3 tabs daily x 3 days, then 2 tabs daily x 3 days, then 1 tab daily x 3 days and stop Scheduled PRN Albuterol Sulfate (Proair Hfa) 108 Mcg/Act Aer, 1 PUFF INH Q4H PRN for SOB/WHEEZING, (Reported) Albuterol/Ipratropium (Ipratropium [place]/Albut 0.5-2.5 (3) mg/3Ml) 1 Cheyanne Cheyanne, 1 CHEYANNE INH Q4H PRN for SHORTNESS OF BREATH, (Reported) Allergies Coded Allergies: Penicillins (Verified Allergy, Severe, ANAPHYLAXIS, 04/08/17) Penicillins Cross Reactors (Verified Allergy, Severe, ANAPHYLAXIS, 04/08/17) SEAFOOD (Verified Allergy, Severe, DIFFICULTY BREATHING, 04/08/17) Eggs or Egg-derived Products (Verified Allergy, Unknown, 04/08/17) MURRAY KAUR MD Mar 08, 2018 08:17
[2018-03-08] MEDS ORDERED: predniSONE 20 MG TAB PO SCH (09:00)
[2018-03-08 10:49] VITALS: BP 145/91
[2018-03-08] MEDS: OMEPRAZOLE 20 MG CAP PO SCH (10:49)
[2018-03-08] MEDS: ISOSORBIDE MON. (IMDUR) 60 MG XR TAB PO SCH (10:49)
[2018-03-08] MEDS: VITAMIN D 1,000 INTERNATIONAL UNITS TABLET PO SCH (10:49)
== END 2018-03-08 15:50 | disposition home or self-care (01) | DRG 291 ==
LOC: EDBD 01:21 → M ED 01:21 → M ED INP 05:46 → M MSPAV 11:09
PROVIDERS: ADMIT Internal Medicine; ATTEND General Practice
DX: I11.0 Hypertensive heart disease with heart failure (principal); J18.9 Pneumonia, unspecified organism; J44.0 Chronic obstructive pulmonary disease with (acute) lower respiratory infection; J96.11 Chronic respiratory failure with hypoxia; Z68.41 Body mass index [BMI] 40.0-44.9, adult; N17.9 Acute kidney failure, unspecified; I50.32 Chronic diastolic (congestive) heart failure; G47.33 Obstructive sleep apnea (adult) (pediatric); E66.01 Morbid (severe) obesity due to excess calories; I27.29 Other secondary pulmonary hypertension; L40.9 Psoriasis, unspecified; K21.9 Gastro-esophageal reflux disease without esophagitis; Z99.81 Dependence on supplemental oxygen; Z79.899 Other long term (current) drug therapy; Z88.0 Allergy status to penicillin; Z87.891 Personal history of nicotine dependence

== ENCOUNTER → 2018-05-06 | Outpatient (CLI) | payer MEDICARE, MEDICAID ==
[~2018-05-06] MED LIST changes: +AVEL1TAB3 PO; +[UNRECOGNIZED DRUG - CODE] XX; +[UNRECOGNIZED DRUG - CODE] XX
--- NOTE | 2018-05-06 14:14 | REP ---
Clinical: Lower back and left hip pain with sciatica. Technique: Neutral and frog lateral views of the left hip. Findings: Mild age-related arthritic changes include medial joint space narrowing with subtle increase sclerosis to the acetabular roof. No calcified loose bodies. The femoral head and proximal femur demonstrate normal contour. No acute fracture or dislocation. Surrounding soft tissues are unremarkable. Impression: Mild arthritic changes to the left hip. Electronically Signed by Tonio Mars MD 05/06/2018 02:05 P
--- NOTE | 2018-05-06 14:17 | REP ---
Clinical: Lower back pain and sciatica. Technique: AP, lateral, bilateral oblique, and coned-down views of the lumbosacral spine. Findings: Alignment and lordosis maintained. No acute fracture / compression injury or subluxation. Moderate focal degenerative disc osteophyte complex at L5-S1 and L4-5 includes marginal osteophytes, endplate sclerosis, hypertrophic facet changes and mild disc space narrowing. Remainder of the examination appears normal for age. Impression: Moderate focal degenerative spondylosis at L5-S1 and L4-5. Electronically Signed by Tonio Mars MD 05/06/2018 02:08 P
== END ==
LOC: M RAD 12:55
PROVIDERS: ATTEND Physician Assistant
DX: M47.816 Spondylosis without myelopathy or radiculopathy, lumbar region (principal); M47.817 Spondylosis without myelopathy or radiculopathy, lumbosacral region; M25.852 Other specified joint disorders, left hip; M25.78 Osteophyte, vertebrae; M54.32 Sciatica, left side

== ENCOUNTER 2018-07-25 21:33 | Emergency (ER) | payer MEDICARE, MEDICAID ==
[~2018-07-25] VITALS: Ht 167.6 cm; Wt 123.6 kg
[~2018-07-25 21:33] MED LIST changes: -/MOXI40TA PO; -ACET50TA PO; +AVEL1INJ PO; +AVEL1TAB2 PO; -DOCU10ELUD PO; +DOCU5LIQ PO; +MAPA500T17 PO; -MIRA255PW PO; -MOXI400IV PO; +ONDA-228 PO; +POLY1POW4 PO; +PRED-351 PO; -PRED10TA PO; -TRIP1OIN4 TOP; +TRIPOIN9 TOP; -ZOFR4TAB3 PO
[2018-07-25] MEDS ORDERED: KETOROLAC 60 MG/2 ML VIAL (J1885) IM ONE (21:45)
[2018-07-25] MEDS ORDERED: NORCO 5/325MG TABLET (BULK FOR ED) PO ONE (21:45)
[2018-07-25] MEDS ORDERED: diazePAM 10 MG TAB PO ONE (21:45)
[2018-07-25] MEDS ORDERED: NORC1TAB7 PO (21:57)
[2018-07-25] MEDS ORDERED: ROLLMIS8 XX (21:57)
[2018-07-25] MEDS ORDERED: CELE1CAP4 PO (21:57)
[2018-07-25 22:42] VITALS: BP 111/68
[2018-07-26] MEDS ORDERED: ROLLMIS8 XX (19:35)
== END 2018-07-25 22:44 | disposition home or self-care (01) ==
LOC: M ED 21:33
DX: M16.12 Unilateral primary osteoarthritis, left hip (principal); K21.9 Gastro-esophageal reflux disease without esophagitis; Z79.899 Other long term (current) drug therapy; Z88.0 Allergy status to penicillin; Z91.012 Allergy to eggs; Z91.013 Allergy to seafood
CPT/HCPCS: 96372; 99284; J1885

== ENCOUNTER → 2018-08-27 | Outpatient (CLI) | payer MEDICARE, MEDICAID ==
[~2018-08-27] MED LIST changes: +CELE1CAP4 PO; +LASI40TA9 PO; +LEVA750T7 PO; +NORC1TAB7 PO; +OMEP20CA4 PO; +ROLLMIS8 XX
--- NOTE | 2018-08-27 07:22 | PFTRPT ---
Height: 66.00 Inches Weight: 267.00 Lbs BSA: 2.26 Diagnosis: J43.1 DATE OF PROCEDURE: 08/27/2018 ORDERED BY: Ti Nunez PA-C Spirometry: Pre and postbronchodilator study of excellent technical quality. Forced vital capacity reduced. FEV1 out of proportion. Obstructive index is, therefore, reduced. Flow Volume Loop: Expiratory limb of the flow volume loop consistent with significant flow rate limitation. Favorable bronchodilator response is identified. Lung Volumes: Total lung capacity elevated. Residual volume consistent with air trapping. Diffusing Capacity: Diffusing capacity reduced, does correct for alveolar volume. Hemoglobin: Hemoglobin acceptable at 15.3. Airway Mechanics: Airways resistance elevated with concomitant decrease in airway conductance. IMPRESSION: Moderate to severe obstructive ventilatory impairment with underlying air trapping and suspected emphysema. Favorable bronchodilator response. Please correlate clinically. MTDD
--- NOTE | 2018-08-27 09:41 | REP ---
CT of the chest without IV contrast: Comparisons are 03/03/2018 and 08/25/2016. The patient clinical history is bah lobular emphysema. On 03/03/2018 there was a focal ground-glass density medially in the left lower lobe. This is no longer present, compatible with transient infiltrate. There are no acute infiltrates on the study today. There are no pleural effusions. There is a left lower lobe lung nodule, not present on the prior studies measuring 9 mm on image 75. This is a category III lung nodule. Follow-up chest CT in 6 months is recommended. Small bulla are identified scattered throughout the lung patterson bilaterally. There is subcarinal lymph node enlargement measuring up to 11 mm short axis. This measured up to 9 mm on 03/03/2018 and up to 13 mm of 08/25/2016. There are enlarged aorticopulmonic window nodes measuring up to 12 mm short axis. This is unchanged from both prior studies. There is no axillary lymph node enlargement. The visualized upper abdominal contents are unremarkable. There is no adrenal mass. Impression: There is a new 9 mm left lower lobe lung nodule on image 75. Follow-up CT in 6 months is recommended for additional evaluation. The focal ground-glass density identified in the left lower lobe on 03/03/2018 has resolved, compatible with transient infiltrate. There is stable mediastinal lymph node enlargement as described. There are small bulla scattered throughout the lung patterson diffusely bilaterally. Electronically Signed by Navin Deleon MD 08/27/2018 09:33 A
== END ==
LOC: M CARPUL 06:37
PROVIDERS: ATTEND Physician Assistant
DX: J43.1 Panlobular emphysema (principal)

== ENCOUNTER 2018-08-31 21:35 | Inpatient (IN) | payer MEDICARE, MEDICAID ==
[~2018-08-31] VITALS: Ht 167.6 cm; Wt 117.5 kg
[~2018-08-31 21:35] MED LIST changes: -LASI40TA9 PO; -LEVA750T7 PO; +OMEP1CAP73 PO; -OMEP20CA4 PO
[2018-08-31] MEDS ORDERED: LASI40TA9 PO (22:00)
[2018-08-31] MEDS ORDERED: dexameTHASONE 20 MG/5 ML VIAL (J1100) IV ONE (22:30)
[2018-08-31 22:36] LABS: BASO # 0.1 10^3/uL (0.0-0.2); BASO % 0.6 % (0.0-1.0); EOS # 0.3 10^3/uL (0.0-0.50); EOS % 2.4 % (0.0-3.0); HEMATOCRIT 42.1 % (42.0-52.0); HEMOGLOBIN 13.5 g/dl (13.5-17.5); LYMPH # 1.7 10^3/uL (1.5-4.5); LYMPH % 13.1 % (24.0-44.0); MEAN CORPUSCULAR HEMOGLOBIN 29.4 pg (27.0-33.0); MEAN CORPUSCULAR HGB CONC 32.1 g/dl (32.0-36.5); MEAN CORPUSCULAR VOLUME 91.7 fl (80.0-96.0); MONO # 1.1 10^3/uL (0.0-0.8); MONO % 8.1 % (0.0-5.0); NEUTROPHILS # 9.9 10^3/uL (1.8-7.7); NEUTROPHILS % 75.3 % (36.0-66.0); PLATELET COUNT, AUTOMATED 246 10^3/uL (150-450); RED BLOOD COUNT 4.59 10^6/uL (4.30-6.10); WHITE BLOOD COUNT 13.1 10^3/uL (4.0-10.0)
[2018-08-31] MEDS: IPRATROPIUM 0.5MG/ALBUTEROL 2.5MG INH SOL UD 3ML (DUONEB)(J7620) NEB SCH ×3 (22:43→23:10)
[2018-08-31 23:01] LABS: ABG BASE EXCESS 4.1 (-2.0-2.0); ABG HCO3 28.4 MEQ/L (22.0-26.0); ABG O2 SATURATION 96.2 % (95.0-99.0); ABG PARTIAL PRESSURE CO2 41.4 mmHg (35.0-45.0); ABG STANDARD HCO3 28.1 MEQ/L (22.0-26.0); ABG TOTAL CO2 29.7 MEQ/L (23.0-31.0); ABG pH (ARTERIAL) 7.454 UNITS (7.350-7.450)
[2018-08-31 23:10] LABS: BLOOD UREA NITROGEN 15 MG/DL (7-18); CARBON DIOXIDE LEVEL 29 MEQ/L (21-32); CHLORIDE LEVEL 105 MEQ/L (98-107); CREATININE FOR GFR 1.11 MG/DL (0.70-1.30); GLOMERULAR FILTRATION RATE > 60.0 (>49); GLUCOSE, FASTING 110 MG/DL (70-100); NT-PRO BNP 125 PG/ML (<125); SODIUM LEVEL 142 MEQ/L (136-145)
[2018-09-01] MEDS ORDERED: ACETAMINOPHEN TAB 650MG DOSE (2X325MG) PO PRN (01:30)
--- NOTE | 2018-09-01 01:49 | HPEPDOC ---
General Date of Admission 09/01/2018 Date of Service: Sep 01, 2018 Attending Physician: FARHAD IGLESIAS MD Chief Complaint The patient is a 63-year-old male admitted with a reason for visit of SOB. History of Present Illness Leroy is a 63-year-old male, past medical history significant for advanced COPD, on chronic 2 L nasal cannula oxygen use at home, chronic diastolic heart failure, morbid obesity, obstructive sleep apnea, noncompliant with CPAP, who presents to the emergency room tonight on account of 2 day onset worsening shortness of breath, coughing green phlegm, hoarseness, diaphoresis, with chest pain. He was treating with nebulizers breathing treatments in the emergency room with minimal improvement of his symptoms. On assessment, patient has normal mental status, chest x-ray was completed, but report not available at time of evaluation. Home Medications Scheduled Budesonide/Formoterol (Symbicort 160-4.5 Mcg Inhaler) 60 Puff/Inhaler Aers, 2 PUFFS INH BID, (Reported) Cholecalciferol (Vitamin D3) (Vitamin D3) 1,000 Unit Tab, 1,000 UNIT PO DAILY, (Reported) Furosemide (Lasix) 40 Mg Tablet, 40 MG PO BID, (Reported) AM,AFTERNOON Multivitamins (Thera M Plus Tablet) 1 Tab Tab, 1 TAB PO DAILY, (Reported) Omeprazole (Omeprazole) 20 Mg Cap, 20 MG PO DAILY, (Reported) Potassium Chloride (Potassium Chloride) 20 Meq Tab, 20 MEQ PO BID, (Reported) Scheduled PRN Albuterol Sulfate (Proair Hfa) 108 Mcg/Act Aer, 2 PUFFS INH Q4H PRN for SOB/WHEEZING, (Reported) Ipratropium/Albuterol Sulfate (Iprat-Albut 0.5-3(2.5) mg/3 ml) 1 Cheyanne Cheyanne, 1 CHEYANNE INH Q4H PRN for SHORTNESS OF BREATH, (Reported) Allergies Coded Allergies: SEAFOOD (Verified Allergy, Severe, DIFFICULTY BREATHING, 04/08/17) Egg Derived (Verified Allergy, Unknown, 07/25/18) Penicillins (Verified Allergy, Unknown, 07/25/18) Past Medical History Medical History Chronic diastolic heart failure Obstructive sleep apnea Morbid obesity Cor pulmonale COPD on chronic oxygen use GERD Psoriasis Valvular heart disease. Left hip osteoarthritis Surgical History Bilateral knee arthroscopy Family History Mother: CVA Social History * Smoker: Denies Alcohol: occationally Drugs: denies A-FIB/CHADSVASC A-FIB History Current/History of A-Fib/PAF?: No Current PO Anticoag Therapy: No Review of Systems Other systems A pertinent 10 point review of systems is completed, negative except as stated in the history of presenting illness. Physical Examination Other physical findings GENERAL: Obese male in mild respiratory distress SKIN : Warm, dry intact HEENT: Atraumatic, normocephalic, PERRL, moist mucous membrane CARDIOVASCULAR: Regular rate and rhythm, tachycardic, S1S2, no JVD, no edema, distal pulses + palpable RESP: Unable to speak in full sentences. Posterior expiratory wheeze disease, productive cough, green phlegm,, with accessory muscle use noted ABDOMEN: BS+ non distended non tender MS: no joint deformities NEURO: Alert and oriented x 3, CN2-12 grossly intact PSYCH: no anxiety or agitation, appropriate mood and affect. Vital Signs Vital Signs Date Time Temp Pulse Resp B/P (MAP) Pulse Ox O2 Delivery O2 Flow Rate FiO2 09/01/18 00:22 99.1 08/31/18 23:50 101 93 08/31/18 22:30 148/82 (104) 08/31/18 22:01 Nasal Cannula 4.0 08/31/18 21:53 24 Laboratory Data Labs 24H Laboratory Tests 2 08/31/18 22:23: Immature Granulocyte % (Auto) 0.5, White Blood Count 13.1H, Red Blood Count 4.59, Hemoglobin 13.5, Hematocrit 42.1, Mean Corpuscular Volume 91.7, Mean Corpuscular Hemoglobin 29.4, Mean Corpuscular Hemoglobin Concent 32.1, Red Cell Distribution Width 14.4, Platelet Count 246, Neutrophils (%) (Auto) 75.3H, Lymphocytes (%) (Auto) 13.1L, Monocytes (%) (Auto) 8.1H, Eosinophils (%) (Auto) 2.4, Basophils (%) (Auto) 0.6, Neutrophils # (Auto) 9.9H, Lymphocytes # (Auto) 1.7, Monocytes # (Auto) 1.1H, Eosinophils # (Auto) 0.3, Basophils # (Auto) 0.1, Nucleated Red Blood Cells % (auto) 0.0, Anion Gap 8, Glomerular Filtration Rate > 60.0, Lactic Acid Level 1.3, Blood Urea Nitrogen 15, Creatinine 1.11, Sodium Level 142, Potassium Level 4.0, Chloride Level 105, Carbon Dioxide Level 29, Calcium Level 9.0, GX-Arz-D-Type Natriuretic Peptide 125 08/31/18 22:43: Blood Gas Bicarbonate Standard 28.1H, Arterial Blood pH 7.454H, Arterial Blood Partial Pressure CO2 41.4, Arterial Blood Partial Pressure O2 84.0, Arterial Blood Total CO2 29.7, Arterial Blood HCO3 28.4H, Arterial Blood Base Excess 4.1H, Arterial Blood Oxygen Saturation 96.2 CBC/BMP Laboratory Tests 08/31/18 22:23 Red Blood Count 4.59, Mean Corpuscular Volume 91.7, Mean Corpuscular Hemoglobin 29.4, Mean Corpuscular Hemoglobin Concent 32.1, Red Cell Distribution Width 14.4, Neutrophils (%) (Auto) 75.3 H, Lymphocytes (%) (Auto) 13.1 L, Monocytes (%) (Auto) 8.1 H, Eosinophils (%) (Auto) 2.4, Basophils (%) (Auto) 0.6, Neutrophils # (Auto) 9.9 H, Lymphocytes # (Auto) 1.7, Monocytes # (Auto) 1.1 H, Eosinophils # (Auto) 0.3, Basophils # (Auto) 0.1, Calcium Level 9.0 Microbiology Microbiology 08/31/18 Blood Culture, Received Pending Assessment/Plan Acute COPD exacerbation -Blood culture, sputum culture -With bronchitis -Antibiotic therapy with Levaquin -O2 saturation monitoring and support to keep greater than 94% -Scheduled bronchodilator therapy -antitussives -Initiate steroid therapy cautiously given underlying infectious process - Chronic diastolic heart failure -2-D echocardiogram to evaluate ejection fraction, rule out regional wall motion abnormalities -Evaluate for pulmonary hypertension -Fluid restriction daily with weights Obstructive sleep apnea -Patient would rather not try CPAP, stating he finds it very uncomfortable -Continue current oxygen saturation management -Place and monitored bed, for direct monitoring during at bedtime DVT prophylaxis -Lovenox daily Plan / VTE VTE Prophylaxis Ordered?: Yes JUDITH RIOS Sep 01, 2018 01:49
[2018-09-01 03:15] VITALS: BP 137/79
[2018-09-01] MEDS: LevoFLOXacin IV 750 MG in IV 1 EA IV SCH (04:28)
[2018-09-01] MEDS: POTASSIUM CHLORIDE 10 MEQ SR TABLET PO SCH ×3 (04:31→22:11)
[2018-09-01] MEDS: guaiFENesin ER 600 MG TAB PO SCH ×3 (04:31→22:11)
[2018-09-01] MEDS: predniSONE 20 MG TAB PO SCH (05:21)
[2018-09-01 06:00] VITALS: BP 124/79
[2018-09-01 06:25] LABS: HEMATOCRIT 44.4 % (42.0-52.0); HEMOGLOBIN 14.2 g/dl (13.5-17.5); MEAN CORPUSCULAR HEMOGLOBIN 29.5 pg (27.0-33.0); MEAN CORPUSCULAR VOLUME 92.3 fl (80.0-96.0); PLATELET COUNT, AUTOMATED 262 10^3/uL (150-450); RED BLOOD COUNT 4.81 10^6/uL (4.30-6.10); WHITE BLOOD COUNT 11.7 10^3/uL (4.0-10.0)
[2018-09-01 06:46] LABS: ALBUMIN 3.4 GM/DL (3.2-5.2); ALT/SGPT 26 U/L (12-78); BILIRUBIN,TOTAL 0.4 MG/DL (0.2-1.0); BLOOD UREA NITROGEN 20 MG/DL (7-18); CALCIUM LEVEL 9.5 MG/DL (8.8-10.2); CARBON DIOXIDE LEVEL 27 MEQ/L (21-32); CHLORIDE LEVEL 104 MEQ/L (98-107); CREATININE FOR GFR 1.04 MG/DL (0.70-1.30); GLOMERULAR FILTRATION RATE > 60.0 (>49); GLUCOSE, FASTING 153 MG/DL (70-100); POTASSIUM SERUM 4.3 MEQ/L (3.5-5.1); SODIUM LEVEL 140 MEQ/L (136-145); TOTAL PROTEIN 7.7 GM/DL (6.4-8.2)
[2018-09-01 07:30] VITALS: O2SAT 95
[2018-09-01] MEDS: IPRATROPIUM 0.5MG/ALBUTEROL 2.5MG INH SOL UD 3ML (DUONEB)(J7620) NEB SCH ×4 (07:40→20:00)
[2018-09-01] MEDS: ENOXAPARIN 40 MG/0.4 ML SYRINGE (J1650) SC SCH (08:22)
[2018-09-01] MEDS: OMEPRAZOLE 20 MG CAP PO SCH (08:23)
[2018-09-01] MEDS: MULTIVITAMINS/MINERALS THERAP 1 TAB PO SCH (08:23)
[2018-09-01] MEDS: SYMBICORT 160/4.5MCG INHALER 6GM INH SCH ×2 (09:00→21:12)
[2018-09-01 10:00] VITALS: BP 128/79
[2018-09-01 14:00] VITALS: BP 145/62
--- NOTE | 2018-09-01 19:33 | ECGEPIP ---
[facility] - ED Test Date: 2018-08-31 Pat Name: JUDI ROCA Department: Room: [place] [address] Gender: Male Brush Hand: SAM : 1955 Requested By: SEMAJ GOTTLIEB Order Number: [id number] Reading MD: Esau Nielson Measurements Intervals [place] Rate: 108 P: 66 MT: 199 QRS: QRSD: 110 T: 43 QT: 326 QTc: 437 Interpretive Statements SINUS TACHYCARDIA LAD PATTERN CONSISTENT WITH PULMONARY DISEASE INCOMPLETE RIGHT BUNDLE BRANCH BLOCK LEFT ANTERIOR FASCICULAR BLOCK INFERIOR MYOCARDIAL INFARCTION, PROBABLY OLD NONSPECIFIC ST T WAVE CHANGES CW 03/03/[address] T WAVE CHANGES Electronically Signed on 09-01-2018 19:33:38 EDT by Esau Nielson
--- NOTE | 2018-09-01 21:31 | IPNPDOC ---
Subjective Date Seen The patient was seen on 09/01/18. Subjective Chief Complaint/HPI Says breathing is a little better but still not back to baseline. Has some cough with increased phlegm production, No fever or chills, no chest pain or SOB, hip osteoarthritis but cannot get medical clearance Objective Physical Examination General Exam: Positive: Alert, Cooperative, No Acute Distress Eye Exam: Positive: PERRLA, Conjunctiva & lids normal, EOMI; Negative: Sclera icteric ENT Exam: Positive: Atraumatic, Mucous membr. moist/pink, Pharynx Normal Neck Exam: Positive: Supple; Negative: JVD, thyromegaly Chest Exam: Positive: Wheezing (few scattered wheezes heard on deep expiration.), Diminished Heart Exam: Positive: Rate Normal, Regular Rhythm, Normal S1, Normal S2 Abdomen Exam: Positive: Normal bowel sounds, Soft; Negative: Tenderness, Hepatospenomegaly Extremity Exam: Positive: Edema; Negative: Clubbing, Cyanosis Skin Exam: Positive: Nl turgor and temperature; Negative: Rash, Breakdown Assessment /Plan Assessment 63 year old male with PMH of Advanced COPD with Emphysema, Corpulmonale / right heart failure, CHAYITO untreated, chronic respiratory failure with hypoxia, diastolic CHF, morbid obesity, GERD, Psoriasis, presented to the hospital for increasing SOB and admitted for Acute Bronchitis with COPD exacerbation Acute COPD exacerbation with chronic respiratory failure with hypoxia. with acute bronchitis duonebs, symbicort, prednisone, levofloxacin oxygen supplementation. - Chronic diastolic heart failure continue lasix Fluid restriction daily with weights Non rheumatic valvular heard disease from echo in 2013 mild Aortic stenosis, moderate mitral regurgitation, echo ordered. Obstructive sleep apnea untreated as has been unable to tolerate CPAP continue oxygen supplementation. LLL lung nodule 9 mm in size needs follow up CT in 6 months. Morbid obesity complicating care GERD omeprazole Plan/VTE VTE Prophylaxis Ordered?: Yes VS, I&O, 24H, Fishbone Vital Signs/I&O Vital Signs Date Time Temp Pulse Resp B/P (MAP) Pulse Ox O2 Delivery O2 Flow Rate FiO2 09/01/18 14:00 97.3 92 18 145/62 (89) 96 2.0 09/01/18 07:30 Nasal Cannula I&O- Last 24 Hours up to 6 AM 09/01/18 05:59 Intake Total 0 ml Balance 0 ml Laboratory Data 24H LABS Laboratory Tests 2 08/31/18 22:23: Immature Granulocyte % (Auto) 0.5, White Blood Count 13.1H, Red Blood Count 4.59, Hemoglobin 13.5, Hematocrit 42.1, Mean Corpuscular Volume 91.7, Mean Corpuscular Hemoglobin 29.4, Mean Corpuscular Hemoglobin Concent 32.1, Red Cell Distribution Width 14.4, Platelet Count 246, Neutrophils (%) (Auto) 75.3H, Lymphocytes (%) (Auto) 13.1L, Monocytes (%) (Auto) 8.1H, Eosinophils (%) (Auto) 2.4, Basophils (%) (Auto) 0.6, Neutrophils # (Auto) 9.9H, Lymphocytes # (Auto) 1.7, Monocytes # (Auto) 1.1H, Eosinophils # (Auto) 0.3, Basophils # (Auto) 0.1, Nucleated Red Blood Cells % (auto) 0.0, Anion Gap 8, Glomerular Filtration Rate > 60.0, Lactic Acid Level 1.3, Blood Urea Nitrogen 15, Creatinine 1.11, Sodium Level 142, Potassium Level 4.0, Chloride Level 105, Carbon Dioxide Level 29, Calcium Level 9.0, FO-Gsr-X-Type Natriuretic Peptide 125 08/31/18 22:43: Blood Gas Bicarbonate Standard 28.1H, Arterial Blood pH 7.454H, Arterial Blood Partial Pressure CO2 41.4, Arterial Blood Partial Pressure O2 84.0, Arterial Blood Total CO2 29.7, Arterial Blood HCO3 28.4H, Arterial Blood Base Excess 4.1H, Arterial Blood Oxygen Saturation 96.2 09/01/18 05:45: Nucleated Red Blood Cells % (auto) 0.0, Anion Gap 9, Glomerular Filtration Rate > 60.0, Blood Urea Nitrogen 20H, Creatinine 1.04, Sodium Level 140, Potassium Level 4.3, Chloride Level 104, Carbon Dioxide Level 27, Calcium Level 9.5, Aspartate Amino Transf (AST/SGOT) 14, Alanine Aminotransferase (ALT/SGPT) 26, Alkaline Phosphatase 100, Total Bilirubin 0.4, Total Protein 7.7, Albumin 3.4, Albumin/Globulin Ratio 0.79L CBC/BMP Laboratory Tests 08/31/18 22:23 Red Blood Count 4.59, Mean Corpuscular Volume 91.7, Mean Corpuscular Hemoglobin 29.4, Mean Corpuscular Hemoglobin Concent 32.1, Red Cell Distribution Width 14.4, Neutrophils (%) (Auto) 75.3 H, Lymphocytes (%) (Auto) 13.1 L, Monocytes (%) (Auto) 8.1 H, Eosinophils (%) (Auto) 2.4, Basophils (%) (Auto) 0.6, Neutrophils # (Auto) 9.9 H, Lymphocytes # (Auto) 1.7, Monocytes # (Auto) 1.1 H, Eosinophils # (Auto) 0.3, Basophils # (Auto) 0.1, Calcium Level 9.0 09/01/18 05:45 Red Blood Count 4.81, Mean Corpuscular Volume 92.3, Mean Corpuscular Hemoglobin 29.5, Mean Corpuscular Hemoglobin Concent 32.0, Red Cell Distribution Width 14.4, Calcium Level 9.5, Aspartate Amino Transf (AST/SGOT) 14, Alanine Aminotransferase (ALT/SGPT) 26, Alkaline Phosphatase 100, Total Bilirubin 0.4, Total Protein 7.7, Albumin 3.4 Microbiology Microbiology 08/31/18 Blood Culture, Received Pending 09/01/18 Gram Stain - Final, Resulted 09/01/18 Sputum Culture, Resulted Pending KARRI RENDON MD Sep 01, 2018 21:31
[2018-09-01 22:00] VITALS: BP 140/84
[2018-09-01] MEDS: FUROSEMIDE 40 MG TAB PO SCH (22:11)
[2018-09-02] MEDS: LevoFLOXacin IV 750 MG in IV 1 EA IV SCH (05:17)
[2018-09-02 06:00] VITALS: BP 132/68
[2018-09-02 06:10] LABS: BASO % 0.2 % (0.0-1.0); HEMATOCRIT 42.3 % (42.0-52.0); HEMOGLOBIN 13.3 g/dl (13.5-17.5); LYMPH # 1.2 10^3/uL (1.5-4.5); LYMPH % 7.6 % (24.0-44.0); MEAN CORPUSCULAR HEMOGLOBIN 29.4 pg (27.0-33.0); MEAN CORPUSCULAR HGB CONC 31.4 g/dl (32.0-36.5); MEAN CORPUSCULAR VOLUME 93.4 fl (80.0-96.0); MONO # 0.8 10^3/uL (0.0-0.8); MONO % 4.6 % (0.0-5.0); NEUTROPHILS # 14.2 10^3/uL (1.8-7.7); NEUTROPHILS % 86.9 % (36.0-66.0); PLATELET COUNT, AUTOMATED 279 10^3/uL (150-450); RED BLOOD COUNT 4.53 10^6/uL (4.30-6.10); WHITE BLOOD COUNT 16.3 10^3/uL (4.0-10.0)
[2018-09-02 06:36] LABS: BLOOD UREA NITROGEN 18 MG/DL (7-18); CALCIUM LEVEL 9.1 MG/DL (8.8-10.2); CARBON DIOXIDE LEVEL 30 MEQ/L (21-32); CHLORIDE LEVEL 107 MEQ/L (98-107); CREATININE FOR GFR 0.84 MG/DL (0.70-1.30); GLOMERULAR FILTRATION RATE > 60.0 (>49); GLUCOSE, FASTING 127 MG/DL (70-100); POTASSIUM SERUM 4.2 MEQ/L (3.5-5.1); SODIUM LEVEL 142 MEQ/L (136-145)
[2018-09-02] MEDS: IPRATROPIUM 0.5MG/ALBUTEROL 2.5MG INH SOL UD 3ML (DUONEB)(J7620) NEB SCH ×4 (08:00→20:00)
[2018-09-02] MEDS: SYMBICORT 160/4.5MCG INHALER 6GM INH SCH ×2 (08:44→20:24)
[2018-09-02] MEDS: ENOXAPARIN 40 MG/0.4 ML SYRINGE (J1650) SC SCH (08:49)
[2018-09-02] MEDS: predniSONE 20 MG TAB PO SCH (08:49)
[2018-09-02] MEDS: MULTIVITAMINS/MINERALS THERAP 1 TAB PO SCH (08:50)
[2018-09-02] MEDS: OMEPRAZOLE 20 MG CAP PO SCH (08:50)
[2018-09-02] MEDS: POTASSIUM CHLORIDE 10 MEQ SR TABLET PO SCH ×2 (08:50→20:19)
[2018-09-02] MEDS: guaiFENesin ER 600 MG TAB PO SCH ×2 (08:50→20:19)
[2018-09-02] MEDS: FUROSEMIDE 40 MG TAB PO SCH ×2 (08:50→17:35)
--- NOTE | 2018-09-02 09:44 | REP ---
CHEST PORTABLE: AP portable view of the chest was performed and compared to prior study of 03/03/2018. Heart is not significantly enlarged. There is mild calcification and tortuosity of the thoracic aorta. The mediastinal silhouette is unchanged. There is stable bibasilar fibrotic changes. IMPRESSION: Stable chronic changes. Electronically Signed by Navin Abad MD 09/03/2018 01:19 P
[2018-09-02 09:59] VITALS: BP 129/79
--- NOTE | 2018-09-02 10:23 | IPNPDOC ---
Date Seen The patient was seen on 09/02/18. Progress Note SUBJECTIVE: Patient is a 63-year-old white male with past medical history of advanced COPD with emphysema, cor pulmonale, untreated obstructive sleep apnea, chronic respiratory failure with hypoxia, diastolic congestive heart failure, obesity, GERD, psoriasis, and hip osteoarthritis who presented to the ER with shortness of breath and productive cough. He admits that he has been short of breath since his diagnosis of COPD 5-6 years ago; the productive cough began 4 days ago and he is producing green colored sputum. Mr. Harper states that he has also been experiencing night sweats for the past few years and has noticed swelling in his ankles. He monitors his pulse oximetry at home and is on 2L O2 via Nasal cannula at home. He is non compliant with his CPAP machine because it does not "fit properly" on his face; he instead uses oxygen at night to aid in breathing. Patient admits to intermittent chest pain that occurs sporadically and lasts for a minute before resolving. He denies hemoptysis, chest pressure, syncope, dizziness, nausea, or vomiting. Patient is examined at bedside. He admits to feeling better today than when he was admitted and is anxious to go home. He is currently on 2L of oxygen via nasal cannula. He denies any acute symptoms overnight and is afebrile. OBJECTIVE PHYSICAL EXAMINATION: VITAL SIGNS: Please see below. GENERAL: Patient is sitting in bed in tripod position using accessory muscles HEENT: NC AT, mucous membranes moist and pink CARDIOVASCULAR: Diminished heart sounds, RRR, S1S2 normal RESPIRATORY: Wheezes heard throughout on deep expiration ABDOMINAL: slightly distended, nontender, normal bowel sounds EXTREMITIES: Slight pitting edema, no rashes or cyanosis NEUROLOGICAL: no focal deficits LABORATORY DATA, IMAGING STUDIES, MICROBIOLOGY: Please see below. 1. Chest x-ray 09/01/18: AP portable view of the chest was performed and compared to prior study of 03/03/2018. Heart is not significantly enlarged. There is mild calcification and tortuosity of the thoracic aorta. The mediastinal silhouette is unchanged. There is stable bibasilar fibrotic changes. DVT prophylaxis ordered?: yes, lovenox ASSESSMENT AND PLAN: Patient is a 63-year-old white male with past medical history of advanced COPD with emphysema, cor pulmonale, untreated obstructive sleep apnea, chronic respiratory failure with hypoxia, diastolic congestive heart failure, obesity, GERD, psoriasis, and hip osteoarthritis PROBLEMS: 1. Acute COPD exacerbation with chronic respiratory failure, hypoxia, and acute bronchitis -c/w duonebs, symbicort, prednisone, and levofloxacin -c/w 2L NC oxygen supplementation 2. Chronic diastolic heart failure -continue lasix -Fluid restriction and daily weights 3. Non rheumatic valvular heard disease from echo in 2013, mild Aortic stenosis, and moderate mitral regurgitation, -echocardiogram ordered 4. Obstructive sleep apnea -untreated as has been unable to tolerate CPAP due to improper fit -continue oxygen supplementation. 5. Left lower lobe lung nodule 9 mm in size -needs follow up CT in 6 months. 6. Morbid obesity -complicating care 7. GERD - c/w omeprazole DISPOSITION: Patient is stable and his prognosis is guarded. Will hopefully be discharged tomorrow. Have patient finish five day course of steroids. Ech ocardiogram to be performed today. VS, I&O, 24H, Fishbone Vital Signs/I&O Vital Signs Date Time Temp Pulse Resp B/P (MAP) Pulse Ox O2 Delivery O2 Flow Rate FiO2 09/02/18 06:00 98.0 76 12 132/68 (89) 97 2.0 09/01/18 21:15 95 09/01/18 07:30 Nasal Cannula I&O- Last 24 Hours up to 6 AM 09/02/18 06:00 Intake Total 2380 ml Output Total 1400 ml Balance 980 ml Laboratory Data 24H LABS Laboratory Tests 2 09/02/18 05:55: Immature Granulocyte % (Auto) 0.7, White Blood Count 16.3H, Red Blood Count 4.53, Hemoglobin 13.3L, Hematocrit 42.3, Mean Corpuscular Volume 93.4, Mean Corpuscular Hemoglobin 29.4, Mean Corpuscular Hemoglobin Concent 31.4L, Red Cell Distribution Width 14.5, Platelet Count 279, Neutrophils (%) (Auto) 86.9H, L ymphocytes (%) (Auto) 7.6L, Monocytes (%) (Auto) 4.6, Eosinophils (%) (Auto) 0.0, Basophils (%) (Auto) 0.2, Neutrophils # (Auto) 14.2H, Lymphocytes # (Auto) 1.2L, Monocytes # (Auto) 0.8, Eosinophils # (Auto) 0.0, Basophils # (Auto) 0.0, Nucleated Red Blood Cells % (auto) 0.0, Anion Gap 5L, Glomerular Filtration Rate > 60.0, Blood Urea Nitrogen 18, Creatinine 0.84, Sodium Level 142, Potassium Level 4.2, Chloride Level 107, Carbon Dioxide Level 30, Calcium Level 9.1 CBC/BMP Laboratory Tests 09/02/18 05:55 Red Blood Count 4.53, Mean Corpuscular Volume 93.4, Mean Corpuscular Hemoglobin 29.4, Mean Corpuscular Hemoglobin Concent 31.4 L, Red Cell Distribution Width 14.5, Neutrophils (%) (Auto) 86.9 H, Lymphocytes (%) (Auto) 7.6 L, Monocytes (%) (Auto) 4.6, Eosinophils (%) (Auto) 0.0, Basophils (%) (Auto) 0.2, Neutrophils # (Auto) 14.2 H, Lymphocytes # (Auto) 1.2 L, Monocytes # (Auto) 0.8, Eosinophils # (Auto) 0.0, Basophils # (Auto) 0.0, Calcium Level 9.1 Microbiology Microbiology 08/31/18 Blood Culture - Preliminary, Resulted No growth after 24 hours . All specim... 09/01/18 Gram Stain - Final, Resulted 09/01/18 Sputum Culture, Resulted Pending Attending Note Attending Note I have personally seen and examined the patient this am. I agree with the finding and the plan of care as documented above in the resident's/ medical student's note. OZ DAILY OMS-3 Sep 02, 2018 10:23 KARRI RENDON MD Sep 02, 2018 23:23
[2018-09-02 14:30] VITALS: BP 144/65
[2018-09-02 17:00] VITALS: BP 136/73
[2018-09-02] MEDS ORDERED: SLF 3 ML SYR IV PRN (17:00)
[2018-09-02 20:00] VITALS: BP_SYST 151; BP_DIAS 71; BP_DIAS 72
[2018-09-02] MEDS ORDERED: SLF 3 ML SYR IV SCH (22:00)
[2018-09-02 23:51] VITALS: BP 138/95
[2018-09-03 04:00] VITALS: BP 113/59
[2018-09-03] MEDS ORDERED: LevoFLOXacin 750 MG TABLET PO SCH (06:00)
[2018-09-03 06:50] LABS: BASO # 0.1 10^3/uL (0.0-0.2); BASO % 0.4 % (0.0-1.0); EOS % 0.1 % (0.0-3.0); HEMATOCRIT 42.9 % (42.0-52.0); HEMOGLOBIN 13.5 g/dl (13.5-17.5); LYMPH # 2.4 10^3/uL (1.5-4.5); LYMPH % 19.8 % (24.0-44.0); MEAN CORPUSCULAR HEMOGLOBIN 30.2 pg (27.0-33.0); MEAN CORPUSCULAR HGB CONC 31.5 g/dl (32.0-36.5); MONO # 0.8 10^3/uL (0.0-0.8); MONO % 6.6 % (0.0-5.0); NEUTROPHILS # 8.6 10^3/uL (1.8-7.7); NEUTROPHILS % 71.6 % (36.0-66.0); PLATELET COUNT, AUTOMATED 256 10^3/uL (150-450); RED BLOOD COUNT 4.47 10^6/uL (4.30-6.10); WHITE BLOOD COUNT 12.1 10^3/uL (4.0-10.0)
[2018-09-03 07:06] LABS: BLOOD UREA NITROGEN 22 MG/DL (7-18); C REACTIVE PROTEIN QUANTITATIV 1.86 MG/DL (0.00-0.30); CALCIUM LEVEL 8.9 MG/DL (8.8-10.2); CARBON DIOXIDE LEVEL 33 MEQ/L (21-32); CHLORIDE LEVEL 106 MEQ/L (98-107); CREATININE FOR GFR 0.89 MG/DL (0.70-1.30); GLOMERULAR FILTRATION RATE > 60.0 (>49); GLUCOSE, FASTING 102 MG/DL (70-100); POTASSIUM SERUM 3.7 MEQ/L (3.5-5.1); SODIUM LEVEL 143 MEQ/L (136-145)
[2018-09-03 08:00] VITALS: BP 138/74
[2018-09-03] MEDS: IPRATROPIUM 0.5MG/ALBUTEROL 2.5MG INH SOL UD 3ML (DUONEB)(J7620) NEB SCH ×2 (08:00→11:22)
[2018-09-03] MEDS: SYMBICORT 160/4.5MCG INHALER 6GM INH SCH (08:28)
[2018-09-03] MEDS: MULTIVITAMINS/MINERALS THERAP 1 TAB PO SCH (08:49)
[2018-09-03] MEDS: POTASSIUM CHLORIDE 10 MEQ SR TABLET PO SCH (08:49)
[2018-09-03] MEDS: guaiFENesin ER 600 MG TAB PO SCH (08:49)
[2018-09-03] MEDS: predniSONE 20 MG TAB PO SCH (08:49)
[2018-09-03] MEDS: FUROSEMIDE 40 MG TAB PO SCH (08:49)
[2018-09-03] MEDS: OMEPRAZOLE 20 MG CAP PO SCH (08:49)
[2018-09-03] MEDS: ENOXAPARIN 40 MG/0.4 ML SYRINGE (J1650) SC SCH (08:50)
[2018-09-03] MEDS ORDERED: PRED10TA2 PO (09:39)
[2018-09-03] MEDS ORDERED: LEVA750T7 PO (09:39)
--- NOTE | 2018-09-03 10:20 | DS.PDOC ---
Discharge Summary General Date of Admission Aug 31, 2018 at 21:36 Date of Discharge September 03, 2018 Attending Physician: KARRI RENDON MD Discharge Summary PROCEDURES PERFORMED DURING STAY: None ADMITTING DIAGNOSES: 1. Acute bronchitis with COPD exacerbation DISCHARGE DIAGNOSES: 1. Acute COPD exacerbation with chronic respiratory failure with hypoxia, and acute bronchitis 2. Chronic diastolic heart failure 3. Non rheumatic valvular heard disease from echo in 2012, mild Aortic stenosis, and moderate mitral regurgitation 4. Obstructive sleep apnea does not use CPAP and could not tolerate it 5. Left lower lobe lung nodule 9 mm in size 6. Morbid obesity 7. GERD COMPLICATIONS/CHIEF COMPLAINT: shortness of breath and productive cough HISTORY OF PRESENT ILLNESS: Patient is a 63-year-old white male with past medical history of advanced COPD with emphysema, cor pulmonale, untreated obstructive sleep apnea, chronic respiratory failure with hypoxia, diastolic congestive heart failure, obesity, GERD, psoriasis, and hip osteoarthritis who presented to the ER with shortness of breath and productive cough. He admits that he has been short of breath since his diagnosis of COPD 5-6 years ago; the productive cough began 4 days ago and he is producing green colored sputum. Mr. Harper states that he has also been experiencing night sweats for the past few years and has noticed swelling in his ankles. He monitors his pulse oximetry at home and is on 2L O2 via Nasal cannula at home. He is non compliant with his CPAP machine because it does not "fit properly" on his face; he instead uses oxygen at night to aid in breathing. Patient admits to intermittent chest pain that occurs sporadically and lasts for a minute before resolving. He denies hemoptysis, chest pressure, syncope, dizziness, nausea, or vomiting. HOSPITAL COURSE: Patient was admitted on 09/01/18 and treated with nebulizer breathing treatments in the Emergency room. A chest x-ray was ordered that exhibited stable chronic changes. He was started on standard COPD exacerbation treatment, Levaquin for acute bronchitis, and Lasix for chronic diastolic heart failure. Patient weight was monitored and fluid restrictions were put in place. Mr. Harper's breathing returned to baseline and he continued to be afebrile. Patient kept on 2L of oxygen via nasal cannula for duration of stay. DISCHARGE MEDICATIONS: Please see below. ALLERGIES: Please see below. PHYSICAL EXAMINATION ON DISCHARGE: VITAL SIGNS: Please see below. GENERAL: Patient is sitting in bed in tripod position, speaking in full sentences without difficulty HEENT: NC AT, mucous membranes pink and moist NECK: supple CARDIOVASCULAR EXAMINATION: diminished heart sounds, normal S1S2, RRR RESPIRATORY EXAMINATION: few scattered wheezes heard on deep expiration ABDOMINAL EXAMINATION: soft, morbid obesity, nontender to palpation EXTREMITIES: trace edema noted in lower extremities, no cyanosis noted SKIN: flushed, no rashes NEUROLOGICAL EXAMINATION: No focal deficits, Alert and oriented x3 PSYCHIATRIC EXAMINATION: normal affect LABORATORY DATA: Please see below. IMAGING: Chest X-ray 08/31/18: Stable chronic changes. Heart is not significantly enlarged. There is mild calcification and tortuosity of the thoracic aorta. The mediastinal silhouette is unchanged. There is stable bibasilar fibrotic changes. PROGNOSIS: Fair ACTIVITY: As tolerated, has complete independence DIET: Low fat, Low cholesterol, 2L fluid restriction DISPOSITION: Patient is being discharged home DISCHARGE INSTRUCTIONS: 1. Fluid restriction: 2000ml/24 hour restriction 2. Complete remaining antibiotic and steroid 3. Return to Emergency Room for emergency ITEMS TO FOLLOWUP ON ON OUTPATIENT: 1. Follow up with PCP in 1 week DISCHARGE CONDITION: Stable TIME SPENT ON DISCHARGE: 35 minutes. Vital Signs/I&Os Vital Signs Date Time Temp Pulse Resp B/P (MAP) Pulse Ox O2 Delivery O2 Flow Rate FiO2 09/03/18 08:00 97.5 82 20 138/74 (95) 95 2.0 09/02/18 09:00 09/01/18 07:30 Nasal Cannula I&O- Last 24 Hours up to 6 AM 09/03/18 06:00 Intake Total 1140 ml Output Total 2000 ml Balance -860 ml Laboratory Data Labs 24H Laboratory Tests 2 09/03/18 06:19: Immature Granulocyte % (Auto) 1.5, White Blood Count 12.1H, Red Blood Count 4.47, Hemoglobin 13.5, Hematocrit 42.9, Mean Corpuscular Volume 96.0, Mean Corpuscular Hemoglobin 30.2, Mean Corpuscular Hemoglobin Concent 31.5L, Red Cell Distribution Width 14.6H, Platelet Count 256, Neutrophils (%) (Auto) 71.6H, Lymphocytes (%) (Auto) 19.8L, Monocytes (%) (Auto) 6.6H, Eosinophils (%) (Auto) 0.1, Basophils (%) (Auto) 0.4, Neutrophils # (Auto) 8.6H, Lymphocytes # (Auto) 2.4, Monocytes # (Auto) 0.8, Eosinophils # (Auto) 0.0, Basophils # (Auto) 0.1, Nucleated Red Blood Cells % (auto) 0.0, Anion Gap 4L, Glomerular Filtration Rate > 60.0, Blood Urea Nitrogen 22H, Creatinine 0.89, Sodium Level 143, Potassium Level 3.7, Chloride Level 106, Carbon Dioxide Level 33H, Calcium Level 8.9, C- Reactive Protein, Quantitative 1.86H CBC/BMP Laboratory Tests 09/03/18 06:19 Red Blood Count 4.47, Mean Corpuscular Volume 96.0, Mean Corpuscular Hemoglobin 30.2, Mean Corpuscular Hemoglobin Concent 31.5 L, Red Cell Distribution Width 14.6 H, Neutrophils (%) (Auto) 71.6 H, Lymphocytes (%) (Auto) 19.8 L, Monocytes (%) (Auto) 6.6 H, Eosinophils (%) (Auto) 0.1, Basophils (%) (Auto) 0.4, Neutrophils # (Auto) 8.6 H, Lymphocytes # (Auto) 2.4, Monocytes # (Auto) 0.8, Eosinophils # (Auto) 0.0, Basophils # (Auto) 0.1, Calcium Level 8.9 Microbiology Microbiology 08/31/18 Blood Culture - Preliminary, Resulted No Growth after 48 hours. All Specime... 09/01/18 Gram Stain - Final, Complete 09/01/18 Sputum Culture - Final, Complete Discharge Medications Scheduled Budesonide/Formoterol (Symbicort 160-4.5 Mcg Inhaler) 60 Puff/Inhaler Aers, 2 P UFFS INH BID, (Reported) Cholecalciferol (Vitamin D3) (Vitamin D3) 1,000 Unit Tab, 1,000 UNIT PO DAILY, (Reported) Furosemide (Lasix) 40 Mg Tablet, 40 MG PO BID, (Reported) AM,AFTERNOON Levofloxacin (Levaquin) 750 Mg Tablet, 750 MG PO DAILY@06 Multivitamins (Thera M Plus Tablet) 1 Tab Tab, 1 TAB PO DAILY, (Reported) Omeprazole (Omeprazole) 20 Mg Cap, 20 MG PO DAILY, (Reported) Potassium Chloride (Potassium Chloride) 20 Meq Tab, 20 MEQ PO BID, (Reported) Prednisone (Prednisone) 10 Mg Tablet, 10 MG PO TAPER Take 4 tabs daily x 2 days, then 3 tabs daily x 2 days, then 2 tabs daily x 2 days, then 1 tab daily x 2 days and stop Scheduled PRN Albuterol Sulfate (Proair Hfa) 108 Mcg/Act Aer, 2 PUFFS INH Q4H PRN for SOB/WHEEZING, (Reported) Ipratropium/Albuterol Sulfate (Iprat-Albut 0.5-3(2.5) mg/3 ml) 1 Cheyanne Cheyanne, 1 CHEYANNE INH Q4H PRN for SHORTNESS OF BREATH, (Reported) Allergies Coded Allergies: SEAFOOD (Verified Allergy, Severe, DIFFICULTY BREATHING, 04/08/17) Egg Derived (Verified Allergy, Unknown, 07/25/18) Penicillins (Verified Allergy, Unknown, 07/25/18) Attending Note Attending Note I saw and examined the patient. I agree with the finding and the plan of care as documented in the resident's note. I spent 35 mins in counselling the patient and coordinating the discharge. OZ DAILY OMS-3 Sep 03, 2018 10:20 KARRI RENDON MD Sep 03, 2018 16:22
--- NOTE | 2018-09-04 22:10 | ECHO ---
DATE OF PROCEDURE: 09/02/2018 Date of : 1955 Age: 63 REFERRING PHYSICIAN: SHEYLA Macdonald PRIMARY RES HABILITATION ASSISTANT: Sofi Tovar MD PATIENT LOCATION: Room 4109 REASON FOR ECHOCARDIOGRAM: Shortness of breath. 2D MEASUREMENTS: IVS: 1.3 cm LV: 3.7 cm LVPW: 1.3 cm LA: 3.8 cm Aorta: 3.6 cm IVC: 2.9 cm DOPPLER MEASUREMENTS: Peak velocity across the aortic valve: 3.4 m/s Peak velocity across the LVOT: 1.4 m/s Peak gradient across the aortic valve: 47 mmHg Mean gradient across the aortic valve: 27 mmHg Mitral E: 0.89, Mitral A: 1.3 3D COMMENTS: 1. Normal left ventricular size with mildly increased left ventricular wall thickness and a normal global left ventricular systolic function. The estimated global left ventricular systolic ejection fraction is 65-70%. 2. Normal left atrium. Normal right atrium and right ventricle. 3. The atrial septum appeared to be normal without evidence of defect or shunt. 4. Normal aortic root. 5. No pericardial effusion seen. 6. Mildly to moderately calcified aortic valve with restricted leaflet motion. Normal mitral valve and tricuspid valve. The pulmonic valve and proximal pulmonary artery branches were not well visualized. 7. The inferior vena cava was observed in limited views. It appeared to be dilated. DOPPLER: It detects mild aortic regurgitation. Abnormal relaxation pattern was noted across the mitral valve leaflets as well as the mitral valve annulus consistent with features of grade 1 left ventricular diastolic dysfunction. IMPRESSION 1. Normal global left ventricular systolic function. There is some features of left ventricular diastolic dysfunction manifested by abnormal relaxation. 2. Aortic valve sclerosis with mild aortic regurgitation and moderate aortic stenosis. MTDD
== END 2018-09-03 13:10 | disposition home or self-care (01) | DRG 191 ==
LOC: M ED 21:35 → M ED INP 21:36 → M MSPAV 09-01 03:16 → M PED 09-02 14:00 → M ED INP 09-02 15:24 → OBSVTOIN 09-02 15:31 → M PED 09-02 15:31
PROVIDERS: ADMIT Internal Medicine; ATTEND Internal Medicine Nephrology
DX: J44.1 Chronic obstructive pulmonary disease with (acute) exacerbation (principal); I50.32 Chronic diastolic (congestive) heart failure; Z68.41 Body mass index [BMI] 40.0-44.9, adult; J96.11 Chronic respiratory failure with hypoxia; E66.01 Morbid (severe) obesity due to excess calories; G47.33 Obstructive sleep apnea (adult) (pediatric); K21.9 Gastro-esophageal reflux disease without esophagitis; R91.1 Solitary pulmonary nodule; I08.0 Rheumatic disorders of both mitral and aortic valves; I27.81 Cor pulmonale (chronic); L40.8 Other psoriasis; Z79.899 Other long term (current) drug therapy; Z88.0 Allergy status to penicillin; Z91.013 Allergy to seafood; Z91.012 Allergy to eggs; M16.12 Unilateral primary osteoarthritis, left hip

== ENCOUNTER → 2018-12-06 | Outpatient (CLI) | payer MEDICARE, MEDICAID ==
[~2018-12-06] MED LIST changes: +LASI40TA9 PO; +LEVA750T7 PO; -OMEP1CAP73 PO; +OMEP20CA4 PO
--- NOTE | 2018-12-06 19:15 | REP ---
REASON: Followup pulmonary nodule. COMPARISON: Multiple, the latest 08/27/2018 which showed a 9 mm sized nodule in the left lower lobe. The lack of intravenous contrast decreases the sensitivity of the exam. Limited evaluation of the mediastinum and pulmonary lorna show no evidence of adenopathy or significant change from the prior exam. There are no pleural or pericardial effusions. There is no change in the appearance of the imaged upper abdomen or imaged osseous structures. Evaluation of the lung patterson shows a 9 mm sized nodule seen previously on the left lower lobe that has completely resolved. There is mild cylindrical bronchiectasis. There is a small amount of soft-tissue density in the dependant portion of the right main stem bronchus representing a change from the prior exam and likely representing mucoid debris. There are no new abnormal nodules, mass or opacities. IMPRESSION: 1. Resolution of the previously present 9 mm sized nodule in the left lower lobe. 2. Chronic changes and other findings as described above. Electronically Signed by Bartolo Riggs DO 12/09/2018 02:50 P
== END ==
LOC: M RAD 15:23
PROVIDERS: ATTEND Physician Assistant
DX: R91.8 Other nonspecific abnormal finding of lung field (principal)

== ENCOUNTER → 2019-02-24 | Outpatient (CLI) | payer MEDICARE, MEDICAID ==
[~2019-02-24] MED LIST changes: +INCR1INH; +OMEP1CAP73 PO; -OMEP20CA4 PO; +TIZA4TAB4 PO
--- NOTE | 2019-02-28 02:33 | ECWPNPC ---
PATIENT NAME: JUDI ROCA : 1955 GENDER: MALE VISIT DATE: 02/24/2019 DISCHARGE DATE: 02/24/19 1100 VISIT LOCKED DATE TIME: PHYSICIAN: GABY MCKEON RESOURCE: GABY MCKEON REASON FOR APPOINTMENT 1. CHRONIC LEFT HIP/SI JOINT PAIN-PT DESLEXIC-MAY NEED HELP WITH PAPER WORK HISTORY OF PRESENT ILLNESS PAIN SCREENING: PATIENT HAS A COMPLAINT OF ACUTE OR CHRONIC PAIN :YES 64-YEAR-OLD MALE IN FOR INITIAL PAIN CONSULT. HE HAS COMPLAINTS OF PAIN IN THE LEFT HIP RATING AT A 10 OUT OF 10 AND DESCRIBING IT SORE, AND STABBING. HE DENIES HISTORY OF TRAUMA BUT DOES ADMIT TO A PREVIOUS DIAGNOSIS OF OSTEOARTHRITIS OF THE LEFT HIP. HE HAS BEEN SEEN FOR POTENTIAL SURGERY WORKUP BY ORTHOPEDICS FOR THIS AND GIVEN HIS COMORBIDITIES PER PATIENT REPORT HE IS NOT A CANDIDATE FOR SURGERY. FALL RISK SCREENING: SCREENING :NO FALLS REPORTED IN THE LAST YEAR CURRENT MEDICATIONS TAKING POTASSIUM CHLORIDE 20 MEQ PACKET 1 PACKET WITH FOOD ORALLY ONCE A DAY TAKING FUROSEMIDE 40 MG TABLET 1 TABLET ORALLY ONCE A DAY TAKING CELECOXIB 200 MG CAPSULE 1 CAPSULE WITH FOOD ORALLY ONCE A DAY TAKING NEBULIZER - DEVICE DIRECTED TAKING VITAMIN D3 SUPER STRENGTH 50 MCG (2000 UT) TABLET 1 TABLET ORALLY ONCE A DAY TAKING OMEPRAZOLE 20 MG CAPSULE DELAYED RELEASE 1 CAPSULE 30 MINUTES BEFORE MORNING MEAL ORALLY ONCE A DAY TAKING PROAIR HFA 108 (90 BASE) MCG/ACT AEROSOL SOLUTION 2 PUFFS NEEDED INHALATION QID PRN TAKING DUONEB TAKING OXYGEN NASAL CANNULA TAKING ALBUTEROL SULFATE HFA 108 (90 BASE) MCG/ACT AEROSOL SOLUTION 1 PUFF NEEDED INHALATION EVERY 4 HRS TAKING TYLENOL EXTRA STRENGTH 500 MG TABLET 1 TABLET NEEDED ORALLY EVERY 6 HRS TAKING SYMBICORT 160-4.5 MCG/ACT AEROSOL 2 PUFFS INHALATION TWICE A DAY MEDICATION LIST REVIEWED AND RECONCILED WITH THE PATIENT PAST MEDICAL HISTORY VITAMIN D DEFICIENCY IMPOTENCE OF ORGANIC ORIGIN HYPERLIPIDEMIA HEMATURIA SLEEP APNEA HEAD AND NECK SWELLING HX OF COLON POLYPS HYPOXEMIA CONGESTIVE HEART FAILURE ANEURYSM OF THORACIC AORTA MORBID OBESITY ASTHMA CHRONIC OBSTRUCTIVE LUNG DISEASE HYPOCALEMIA AORTIC VALVE DISORDER BILATERAL SHOULDER JOINT PAIN PAIN OF LEFT HIP JOINT HEART MURMUR ALLERGIES PENICILLIN (FOR ALLERGIES USE ONLY): HIVES - ALLERGY FISH: NAUSEA/VOMITING - ALLERGY EGGS: NAUSEA/VOMITING - ALLERGY SURGICAL HISTORY ARTHROSCOPIC SURGERY BILATERAL KNEES REMOVAL OF TEETH FAMILY HISTORY NO FAMILY HISTORY DOCUMENTED. SOCIAL HISTORY GENERAL: OTHERS AT HOME: NONE, LIVES ALONE. EDUCATION LEVEL OF EDUCATION:NOT FINISHED HIGH SCHOOL GED DIET: REGULAR. LANGUAGE LANGUAGES SPOKEN:DIVEHI DOMESTIC VIOLENCE DO YOU FEEL SAFE IN YOUR ENVIRONMENT?YES RECREATIONAL DRUG USE DRUG USE?NO EXERCISE: NO REGULAR EXERCISE. PAIN CLINIC PFS, CLERGY, PUBLIC HEALTH REFERRALS HAS THE PATIENT BEEN EDUCATED REGARDING HIS/HER PLAN OF CARE?YES HAS THE PATIENT BEEN EDUCATED REGARDING PAIN, THE RISK FOR PAIN, THE IMPORTANCE OF EFFECTIVE PAIN MANAGEMENT, AND THE PAIN ASSESSMENT PROCESS?YES ORIENTED PT TO PAIN MANAGEMENT, DS LATEX QUESTIONNAIRE LATEX ALLERGY : HAVE YOU EVER DEVELOPED ANY TYPE OF REACTION AFTER HANDLING LATEX PRODUCTS SUCH RUBBER GLOVES, CONDOMS, DIAPHRAGMS, BALLOONS, SOCKS, OR UNDERWEAR?NO LATEX ALLERGY : HAVE YOU EVER DEVELOPED ANY TYPE OF REACTION DURING OR AFTER DENTAL APPOINTMENT, VAGINAL/RECTAL EXAMINATION, SURGICAL PROCEDURE, OR ANY OTHER EXPOSURE?NO LATEX RISK : HAVE YOU EVER HAD ANY DIFFICULTY BREATHING OR HIVES AFTER EATING OR HANDLING ANY FRUITS, OR VEGETABLES; SUCH KIWI, BANANAS, STONE FRUITS, OR CHESTNUTSNO LATEX RISK : DO YOU HAVE A PREVIOUS PERSONAL HISTORY OF MORE THAN NINE SURGERIES, SPINA BIFIDA, OR REPEATED CATHERIZATIONS? NO LATEX RISK : ARE YOU FREQUENTLY EXPOSED TO LATEX PRODUCTS IN YOUR OCCUPATION?NO DATE ASKED : 02/24/2019 CAFFEINE CAFFEINE USE?YES 1 POT PER DAY ADVANCE DIRECTIVE ADVANCE DIRECTIVE DISCUSSED WITH PATIENT:YES PT STATES THAT HE HAS HCP JUNE ENGLISH MARITAL STATUS: SINGLE. OCCUPATION: UNEMPLOYED. REVIEWED WITH PATIENT. DS. HOSPITALIZATION/MAJOR DIAGNOSTIC PROCEDURE NO HOSPITALIZATION HISTORY. REVIEW OF SYSTEMS REVIEWED BY: PROVIDER: KILEY CONNORS . CONSTITUTIONAL: ANY CHANGE IN YOUR MEDICAL CONDITION? NO . CHILLS NO . FEVER NO . INFECTION: DO YOU HAVE NEW INFECTIONS? NO . DO YOU HAVE HISTORY OF MRSA? NO . MUSCULOSKELETAL: ANY NEW PATTERNS OF PAIN OR NUMBNESS? NO . SYTEMIC LUPUS NO . GASTROENTEROLOGY: ANY NEW CHANGE IN BOWEL CONTROL? NO . BARRETTS ESOPHAGUS NO . CIRRHOSIS NO . HEPATITIS NO . LIVER FAILURE NO . ACID REFLUX NO . UNEXPLAINED WEIGHT LOSS NO . GENITOURINARY: ANY NEW CHANGE IN BLADDER CONTROL? NO . IS THERE A CHANCE YOU COULD BE ? NO . HEMATOLOGY/LYMPH: DO YOU TAKE ANY BLOOD THINNERS? (FOR EXAMPLE- COUMADIN, PLAVIX, AGGRENOX, PLATEL, PRADAXA, OR XARELTO) NO . WHEN WAS YOUR LAST DOSE? DATE: TIME: . LOW PLATELET COUNT NO . SICKLE CELL DISEASE NO . VON WILLIEBRANDS NO . FACTOR V LEIDEN NO . THALLASEMIA NO . ANEMIA NO . EASY BRUISING NO . NEUROLOGY: HAVE YOU FALLEN IN THE PAST 12 MONTHS? NO . ANY NEW EXTREMITY NUMBNESS OR WEAKNESS? NO . HEAD INJURY NO . DEMENTIA NO . CEREBRAL PALSY NO . MULTIPLE SCLEROSIS NO . DIZZINESS NO . HEADACHE NO . STROKES NO . VERTIGO NO . CARDIOLOGY: DO YOU HAVE A PACEMAKER OR DEFIBRILLATOR? NO . ANGINA NO . HEART ATTACK NO . HEART SURGERY NO . CONGESTIVE HEART FAILURE/FLUID OVERLOAD NO . CHEST PAIN NO . HIGH BLOOD PRESSURE NO . IRREGULAR HEART BEAT NO . RESPIRATORY: HAVE YOU BEEN SICK IN THE PAST WEEK? NO . FEVER NO . FLU LIKE SYMPTOMS? NO . CPAP NO . BYPAP NO . ASTHMA NO . EMPHYSEMA NO . CHRONIC LUNG DISEASES NO . SHORTNESS OF BREATH ON EXERTION NO . COUGH NO . SNORING NO . INTEGUMENTARY: DO YOU HAVE ANY RASHES OR OPEN SORES? NO . ALLERGIC/IMMUNO: ARE YOU ALLERGIC TO IV DYE? NO . ANY NEW ALLERGIES? NO . PSYCHIATRIC: DO YOU HAVE THOUGHTS OF HURTING YOURSELF OR SOMEONE ELSE? NO . ARE YOU ABUSED, NEGLECTED, OR IN AN UNSAFE ENVIRONMENT? NO . ENDOCRINOLOGY: ARE YOU DIABETIC? NO . THYROID DISORDER NO . OTHER: DO YOU NEED ANY PRESCRIPTIONS? NO . IF YES, PLEASE LIST: ____ . ANY NEW PROBLEMS WITH YOUR MEDICATIONS? NO . WHEN DID YOU LAST EAT? ____ . WHEN DID YOU LAST DRINK? ____ . WHAT DID YOU LAST DRINK? ____ . NAME OF PERSON DRIVING YOU HOME? ____ . DO YOU HAVE ANY OTHER QUESTIONS OR CONCERNS NO . VITAL SIGNS WT 260.6 LBS, HT 66 IN, BMI 42.06 INDEX, BP 169/77 MM HG, HR 77 /MIN, RR 19 /MIN, TEMP 98.5 F, OXYGEN SAT % 95, SAFE IN ENV? (Y/N) Y, REVIEWED BY: DSM. ROS COLLINS LPN II @ [id number]. EXAMINATION GENERAL EXAMINATION: GENERALNO ACUTE DISTRESS, WELL NOURISHED AND HYDRATED. PSYCHAPPROPRIATE MOOD AND AFFECT . LUNGS:CLEAR TO AUSCULTATION BILATERALLY, NO WHEEZES, RHONCHI, RALES. HEART:NO MURMURS, REGULAR RATE AND RHYTHM. MUSCULOSKELETAL:POINT TENDER OVER LEFT HIP . ASSESSMENTS PAIN IN LEFT HIP - M25.552 (PRIMARY) TREATMENT PAIN IN LEFT HIP START TIZANIDINE HCL TABLET, 4 MG, 1 TABLET NEEDED, ORALLY, THREE TIMES A DAY PRN, 30 DAYS, 90 NOTES: REVIEWED AND DISCUSSED TIZANIDINE, EDUCATION MATERIAL GIVEN TO PATIENT. DSLEFT HIP INJECTION. CLINICAL NOTES: 64-YEAR-OLD MALE IN FOR INITIAL PAIN CONSULT. GIVEN PRESENTING SYMPTOMS, RESULTS OF PHYSICAL EXAMINATION, AND CONSULT WITH DR. FELTON RECOMMEND LEFT HIP INJECTIONS WITH POSTPROCEDURAL FOLLOW-UP. WE'LL OBTAIN CLEARANCE FROM DR. MACKEY PRIOR TO INJECTIONS. WE WILL ALSO TRIAL TIZANIDINE 4 MG 3 TIMES A DAY NEEDED. PATIENT HAS EXPRESSED UNDERSTANDING OF AND WAS IN AGREEMENT WITH TREATMENT PLAN. GIVEN TIME TO ASK QUESTIONS AND EXPRESS CONCERNS. PREVENTIVE MEDICINE PAIN CLINIC TEACHING: THE PATIENT HAS BEEN EDUCATED REGARDING PAIN, THE RISK FOR PAIN, THE IMPORTANCE OF EFFECTIVE PAIN MANAGEMENT, AND THE PAIN ASSESSMENT PROCESS. : DISCUSSED AND REVIEWED EDUCATIONAL MATERIAL WITH PT, DISCUSSED PRE-PROCEDURE TEACHING, PT ACKNOWLEDGED UNDERSTANDING, DS PROCEDURE CODES FA211 ESTABILISHED PATIENT [facility] CHARGE DISPOSITION & COMMUNICATION FOLLOW UP POSTPROCEDURE (REASON: LEFT HIP INJECTION PENDING APPROVAL BY DR. MACKEY) ELECTRONICALLY SIGNED BY SHEYLA ALCOCER ON 02/27/2019 AT 08:23 AM EST DISCLAIMER : THIS IS A VISIT SUMMARY EXTRACTED FROM THE [id number] CHART. IT IS NOT A COPY OF THE [email or web address] PROGRESS NOTE. ANGELAD
== END ==
LOC: M PAIN 09:30
PROVIDERS: ATTEND Family Medicine
DX: M25.552 Pain in left hip (principal)

== ENCOUNTER → 2019-03-03 | Outpatient (CLI) | payer MEDICARE, MEDICAID ==
--- NOTE | 2019-03-04 03:50 | REP ---
Clinical: History of bah lobular emphysema. Technique: Axial noncontrast images from the thoracic inlet to the upper abdomen with coronal and sagittal re-formations. Comparison: 12/06/2018. Findings: Lung patterson demonstrate stable emphysematous changes and chronic primarily bibasilar fibro atelectatic change with mild bronchiectasis. No focal consolidation, significant nodule, or mass lesion appreciated. No effusion. No pneumothorax. No significant adenopathy. Mediastinum demonstrates stable atherosclerotic changes to the thoracic aorta and coronary arteries. No cardiomegaly or pericardial effusion. Limited upper abdomen demonstrates normal bilateral adrenal glands. Surrounding musculoskeletal structures are intact. Impression: 1. Chronic relatively stable emphysematous and interstitial changes with mild bronchiectasis again noted. 2. No new acute mediastinal or pleuroparenchymal process appreciated. Electronically Signed by Tonio Mars MD 03/04/2019 03:42 A
== END ==
LOC: M RAD 13:41
PROVIDERS: ATTEND Physician Assistant
DX: J43.1 Panlobular emphysema (principal)

== ENCOUNTER 2019-03-05 18:29 | Emergency (ER) | payer MEDICARE, MEDICAID ==
[~2019-03-05] VITALS: Ht 167.6 cm; Wt 119.1 kg
[~2019-03-05 18:29] MED LIST changes: -INCR1INH; -TIZA4TAB4 PO
[2019-03-05] MEDS ORDERED: TIZA4TAB4 PO (18:52)
[2019-03-05] MEDS ORDERED: INCR1INH (18:52)
[2019-03-05 19:41] LABS: BASO # 0.1 10^3/uL (0.0-0.2); BASO % 0.6 % (0.0-1.0); EOS # 0.1 10^3/uL (0.0-0.5); EOS % 1.4 % (0.0-3.0); HEMATOCRIT 45.4 % (42.0-52.0); HEMOGLOBIN 14.4 g/dl (13.5-17.5); LYMPH # 0.4 10^3/uL (1.5-5.0); LYMPH % 4.4 % (24.0-44.0); MEAN CORPUSCULAR HEMOGLOBIN 29.6 pg (27.0-33.0); MEAN CORPUSCULAR HGB CONC 31.7 g/dl (32.0-36.5); MEAN CORPUSCULAR VOLUME 93.4 fl (80.0-96.0); MONO # 0.8 10^3/uL (0.0-0.8); MONO % 9.2 % (0.0-5.0); NEUTROPHILS % 83.9 % (36.0-66.0); PLATELET COUNT, AUTOMATED 184 10^3/uL (150-450); RED BLOOD COUNT 4.86 10^6/uL (4.30-6.10); WHITE BLOOD COUNT 8.4 10^3/uL (4.0-10.0)
--- NOTE | 2019-03-05 20:05 | REP ---
The the portable chest, 07:00 p.m., single AP view with the patient upright: Comparison is 08/31/2018. The lung patterson are clear. The cardiac size is normal. The lorna, mediastinum, and skeletal structures are unremarkable. Impression: Negative portable chest. There is no interval change. Electronically Signed by Navin Deleon MD 03/05/2019 07:56 P
[2019-03-05 20:08] LABS: ALBUMIN 3.8 GM/DL (3.2-5.2); ALT/SGPT 22 U/L (12-78); BILIRUBIN,DIRECT 0.3 MG/DL (0.0-0.2); BILIRUBIN,TOTAL 0.7 MG/DL (0.2-1.0); BLOOD UREA NITROGEN 17 MG/DL (7-18); CALCIUM LEVEL 8.5 MG/DL (8.8-10.2); CARBON DIOXIDE LEVEL 25 MEQ/L (21-32); CHLORIDE LEVEL 104 MEQ/L (98-107); CK-MB VALUE MASS 1.7 NG/ML (<3.6); CPK CREATINE PHOSPHOKINASE 83 U/L (39-308); CREATININE FOR GFR 1.06 MG/DL (0.70-1.30); GLOMERULAR FILTRATION RATE > 60.0 (>49); GLUCOSE, FASTING 105 MG/DL (70-100); MB/CK RELATIVE INDEX 2.05 (< OR =4); NT-PRO BNP 190 PG/ML (<125); POTASSIUM SERUM 3.7 MEQ/L (3.5-5.1); SODIUM LEVEL 141 MEQ/L (136-145); TROPONIN I < 0.02 NG/ML (< 0.10)
--- NOTE | 2019-03-05 20:13 | ECGEPIP ---
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
[2019-03-05] MEDS ORDERED: IPRATROPIUM 0.5MG/ALBUTEROL 2.5MG INH SOL UD 3ML (DUONEB)(J7620) NEB PRN (21:30)
[2019-03-05] MEDS ORDERED: ASPIRIN 81 MG CHEW TABLET PO ONE (21:30)
[2019-03-05] MEDS ORDERED: methylPREDNISolone INJ 125 MG/2 ML VIAL (J2930) IV ONE (21:30)
[2019-03-05] MEDS: NS 1,000 ML IV SCH ×2 (21:36→22:16)
[2019-03-05] MEDS ORDERED: PRED20TA PO (22:55)
[2019-03-05] MEDS ORDERED: LEVA1TAB2 PO (22:55)
[2019-03-05] MEDS ORDERED: MOXIFLOXACIN 400 MG TAB PO ONE (23:00)
[2019-03-05 23:46] VITALS: BP 134/68
== END 2019-03-05 23:48 | disposition home or self-care (01) ==
LOC: EDBD 18:29 → M ED 18:29
DX: J44.1 Chronic obstructive pulmonary disease with (acute) exacerbation (principal); I10 Essential (primary) hypertension; Z79.899 Other long term (current) drug therapy; Z88.0 Allergy status to penicillin; Z91.012 Allergy to eggs; Z91.018 Allergy to other foods; Z87.891 Personal history of nicotine dependence
CPT/HCPCS: 71045; 80048; 80076; 82550; 82553; 83605; 83880; 84443; 84484; 85025; 87040; 87486; 87581; 87633; 87798; 93005; 93041; 94640; 94760; 96374; 99284; J2930

== ENCOUNTER 2020-02-20 14:42 | Emergency (ER) | payer MEDICARE, MEDICAID ==
[~2020-02-20] VITALS: Ht 167.6 cm; Wt 123.6 kg
[~2020-02-20 14:42] MED LIST changes: +INCR1INH; +TIZA4TAB4 PO
[2020-02-20] MEDS ORDERED: COMBIVENT RESPIMAT 100-20MCG INHALER 4GM INH STA (15:08)
[2020-02-20] MEDS ORDERED: methylPREDNISolone 125MG 2ML VIAL IV ONE (15:15)
[2020-02-20 15:34] LABS: WHITE BLOOD COUNT 9.2 10^3/uL (4.0-10.0)
[2020-02-20 15:35] LABS: BASO # 0.1 10^3/uL (0.0-0.2); BASO % 0.8 % (0.0-1.0); EOS # 0.3 10^3/uL (0.0-0.5); EOS % 3.5 % (0.0-3.0); HEMATOCRIT 47.7 % (42.0-52.0); HEMOGLOBIN 15.3 g/dl (13.5-17.5); LYMPH # 1.6 10^3/uL (1.5-5.0); LYMPH % 17.2 % (24.0-44.0); MEAN CORPUSCULAR HEMOGLOBIN 30.6 pg (27.0-33.0); MEAN CORPUSCULAR HGB CONC 32.1 g/dl (32.0-36.5); MEAN CORPUSCULAR VOLUME 95.4 fl (80.0-96.0); MONO # 0.7 10^3/uL (0.0-0.8); MONO % 8.1 % (0.0-5.0); NEUTROPHILS # 6.4 10^3/uL (1.5-8.5); NEUTROPHILS % 70.1 % (36.0-66.0); PLATELET COUNT, AUTOMATED 211 10^3/uL (150-450)
--- NOTE | 2020-02-20 15:54 | REP ---
INDICATION: DYSPNEA/COUGH COMPARISON: 08/31/2018, 03/05/2019 TECHNIQUE: Portable AP view of the chest FINDINGS: Limited by portable technique including positioning, underpenetration and poor inspiratory effort. The mediastinum and cardiac silhouette are stable and within normal limits for portable technique. The lung patterson are clear without acute consolidation, effusion, or pneumothorax. Skeletal structures are intact. IMPRESSION: No acute cardiopulmonary process appreciated. <Electronically signed by Tonio Mars > 02/20/20 [id number]
[2020-02-20 15:55] LABS: ABG BASE EXCESS 1.6 (-2.0-2.0); ABG HCO3 25.9 MEQ/L (22.0-26.0); ABG O2 SATURATION 82.5 % (95.0-99.0); ABG PARTIAL PRESSURE CO2 39.8 mmHg (35.0-45.0); ABG STANDARD HCO3 25.5 MEQ/L (22.0-26.0); ABG TOTAL CO2 27.2 MEQ/L (23.0-31.0); ABG pH (ARTERIAL) 7.432 UNITS (7.350-7.450)
[2020-02-20 16:06] LABS: ALBUMIN 3.9 GM/DL (3.2-5.2); ALT/SGPT 29 U/L (12-78); BILIRUBIN,DIRECT 0.1 MG/DL (0.0-0.2); BILIRUBIN,TOTAL 0.4 MG/DL (0.2-1.0); BLOOD UREA NITROGEN 18 MG/DL (7-18); CALCIUM LEVEL 8.7 MG/DL (8.8-10.2); CARBON DIOXIDE LEVEL 26 MEQ/L (21-32); CHLORIDE LEVEL 106 MEQ/L (98-107); CK-MB VALUE MASS 2.6 NG/ML (<3.6); CPK CREATINE PHOSPHOKINASE 81 U/L (39-308); CREATININE FOR GFR 0.93 MG/DL (0.70-1.30); GLOMERULAR FILTRATION RATE > 60.0 (>49); GLUCOSE, FASTING 100 MG/DL (70-100); MB/CK RELATIVE INDEX 3.21 (< OR =4); POTASSIUM SERUM 4.1 MEQ/L (3.5-5.1); SODIUM LEVEL 139 MEQ/L (136-145); TOTAL PROTEIN 7.2 GM/DL (6.4-8.2); TROPONIN I < 0.02 NG/ML (< 0.10)
[2020-02-20] MEDS ORDERED: ISOVUE-370 76% 100ML VIAL As Ordered ONE (17:09)
[2020-02-20] MEDS ORDERED: PRED20TA PO (18:32)
[2020-02-20 18:52] VITALS: BP 132/67
--- NOTE | 2020-02-20 21:47 | ECGEPIP ---
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
--- NOTE | 2020-02-21 08:24 | REP ---
INDICATION: SOB; bloody sputum. r/o PE COMPARISON: 03/03/2019 TECHNIQUE: Axial contrast enhanced images from the thoracic inlet to the upper abdomen using pulmonary embolus technique with multiplanar re-formations. 75 ml Isovue 370 intravenous contrast material administered without complication. This CT examination was performed using the following dose reduction techniques: Automated exposure control, adjustment of mA and/or kv according to the patient's size, and use of iterative reconstruction technique. FINDINGS: Satisfactory enhancement of the pulmonary vasculature is achieved and no filling defects are identified to suggest pulmonary embolus. Further evaluation of the mediastinum demonstrates dilatation to the ascending thoracic aorta measuring roughly 3.9 cm diameter although this may be overestimated secondary to motion artifact. There is no evidence for aortic dissection. Heart and pericardium are relatively normal and without cardiomegaly or pericardial effusion. The bilateral lung patterson demonstrate mild bibasilar atelectasis including linear atelectasis to the lingula and right middle lobe. Small areas of forming consolidation in the deep bilateral sulci including 1.4 cm opacity at the right base (image 70) which is new compared to 03/03/2019 and likely transient. No effusion. No pneumothorax. Tracheobronchial tree is patent. No axillary, hilar, or mediastinal adenopathy. Surrounding musculoskeletal structures are intact and without acute osseous abnormality. Limited upper abdomen demonstrates normal bilateral adrenal glands. IMPRESSION: 1. No evidence for pulmonary embolus. 2. Mild bibasilar atelectasis with small areas of suspected consolidation in the right posterior sulcus. Consider short-term follow-up to resolution. 3. Findings suggesting mild dilatation to the ascending thoracic aorta measuring roughly 3.9 cm maximal diameter. <Electronically signed by Tonio Mars > 02/21/20 [id number]
--- NOTE | 2020-02-22 09:33 | ED PDOC ---
Post-Departure Follow-Up cta chest faxed to simran rose and laisha carcamo for fu Esau Elmore MD Feb 22, 2020 09:33
== END 2020-02-20 19:05 | disposition home or self-care (01) ==
LOC: M ED 14:42
DX: J45.901 Unspecified asthma with (acute) exacerbation (principal); I45.10 Unspecified right bundle-branch block; J44.9 Chronic obstructive pulmonary disease, unspecified; K21.9 Gastro-esophageal reflux disease without esophagitis; N40.0 Benign prostatic hyperplasia without lower urinary tract symptoms; F41.9 Anxiety disorder, unspecified; Z79.899 Other long term (current) drug therapy; Z88.0 Allergy status to penicillin; Z91.012 Allergy to eggs; Z91.013 Allergy to seafood
CPT/HCPCS: 36600; 71045; 71275; 80048; 80076; 82550; 82553; 82803; 84484; 85025; 87486; 87581; 87633; 87798; 93005; 93041; 94640; 96374; 99285; J2930; Q9967

== ENCOUNTER → 2020-10-05 | Outpatient (CLI) | payer MEDICARE, MEDICAID ==
--- NOTE | 2020-10-05 13:30 | REP ---
INDICATION: ABN FINDING OF LUNG COMPARISON: None TECHNIQUE: Axial noncontrast images from the thoracic inlet to the upper abdomen with coronal and sagittal reformations. This CT examination was performed using the following dose reduction techniques: Automated exposure control, adjustment of mA and/or kv according to the patient's size, and use of iterative reconstruction technique. FINDINGS: Current examination demonstrates chronic age-related and moderate emphysematous changes with minimal scattered scarring primarily noted at the lingula and right base. The previously noted areas of subtle ground-glass opacity and small right consolidation in the posterior sulcus have resolved. No significant acute consolidation, nodule or mass lesion is appreciated. No effusion. No pneumothorax. No significant adenopathy. Mediastinum demonstrates stable atherosclerotic changes to the thoracic aorta and coronary arteries without cardiomegaly or pericardial effusion. Ascending aorta currently measures approximately 4 cm maximal diameter. Surrounding musculoskeletal structures are intact. IMPRESSION: 1. Stable chronic changes. 2. Previously noted areas of consolidation have resolved. No new acute mediastinal or pleuroparenchymal process appreciated. 3. Ascending thoracic aorta measures 4 cm maximal diameter and is relatively unchanged. <Electronically signed by Tonio Mars > 10/05/20 [id number]
== END ==
LOC: M PLAIMG 12:13
PROVIDERS: ATTEND Physician Assistant
DX: R91.8 Other nonspecific abnormal finding of lung field (principal)

== ENCOUNTER → 2021-01-03 | Outpatient (CLI) | payer MEDICARE, MEDICAID ==
[2021-01-03 15:45] LABS: BASO # 0.1 10^3/uL (0.0-0.2); BASO % 0.7 % (0.0-1.0); EOS # 0.4 10^3/uL (0.0-0.5); EOS % 4.4 % (0.0-3.0); HEMATOCRIT 47.4 % (42.0-52.0); HEMOGLOBIN 15.1 g/dl (13.5-17.5); LYMPH # 1.6 10^3/uL (1.5-5.0); LYMPH % 19.3 % (24.0-44.0); MEAN CORPUSCULAR HEMOGLOBIN 29.9 pg (27.0-33.0); MEAN CORPUSCULAR HGB CONC 31.9 g/dl (32.0-36.5); MEAN CORPUSCULAR VOLUME 93.9 fl (80.0-96.0); MONO # 0.8 10^3/uL (0.0-0.8); MONO % 8.9 % (2.0-8.0); NEUTROPHILS # 5.6 10^3/uL (1.5-8.5); NEUTROPHILS % 66.2 % (36.0-66.0); PLATELET COUNT, AUTOMATED 233 10^3/uL (150-450); RED BLOOD COUNT 5.05 10^6/uL (4.30-6.10); WHITE BLOOD COUNT 8.4 10^3/uL (4.0-10.0)
[2021-01-03 16:04] LABS: HEMOGLOBIN A1c 5.6 %
[2021-01-03 16:22] LABS: ALBUMIN 3.6 GM/DL (3.2-5.2); ALT/SGPT 40 U/L (12-78); BILIRUBIN,TOTAL 0.5 MG/DL (0.2-1.0); BLOOD UREA NITROGEN 13 MG/DL (7-18); CALCIUM LEVEL 9.1 MG/DL (8.8-10.2); CARBON DIOXIDE LEVEL 34 MEQ/L (21-32); CHLORIDE LEVEL 102 MEQ/L (98-107); CHOLESTEROL LEVEL 136 MG/DL (<200); CHOLESTEROL RISK RATIO 3.885 (<5); CREATININE FOR GFR 1.07 MG/DL (0.70-1.30); GLOMERULAR FILTRATION RATE > 60.0 (>49); GLUCOSE, FASTING 93 MG/DL (70-100); HDL CHOLESTEROL 35 MG/DL (>40); LDL CHOLESTEROL 79 MG/DL (<100); NON-HDL-C 101 MG/DL; POTASSIUM SERUM 4.1 MEQ/L (3.5-5.1); PROSTATIC SPECIFIC AG MONITOR 2.98 NG/ML (< 4.00); SODIUM LEVEL 140 MEQ/L (136-145); THYROID STIMULATING HORMONE 0.843 uIU/ML (0.358-3.740); TOTAL PROTEIN 7.3 GM/DL (6.4-8.2); TRIGLYCERIDES LEVEL 111 MG/DL (<150)
== END ==
LOC: M LAB 14:53
PROVIDERS: ATTEND Physician Assistant
DX: R35.1 Nocturia (principal); I10 Essential (primary) hypertension; E55.9 Vitamin D deficiency, unspecified; R73.01 Impaired fasting glucose

== ENCOUNTER 2021-01-30 10:32 | Emergency (ER) | payer MEDICARE, MEDICAID ==
[~2021-01-30] VITALS: Ht 167.6 cm; Wt 130.3 kg
[~2021-01-30 10:32] MED LIST changes: +POTA-151 PO; -POTA20TA6 PO; +TIZA10TA PO; -TIZA4TAB4 PO
[2021-01-30] MEDS ORDERED: ASPIRIN 81 MG CHEW TABLET PO ONE (11:40)
[2021-01-30 11:53] LABS: BASO # 0.1 10^3/uL (0.0-0.2); BASO % 0.9 % (0.0-1.0); EOS # 0.3 10^3/uL (0.0-0.5); EOS % 3.7 % (0.0-3.0); HEMATOCRIT 49.6 % (42.0-52.0); HEMOGLOBIN 15.8 g/dl (13.5-17.5); LYMPH # 1.8 10^3/uL (1.5-5.0); MEAN CORPUSCULAR HEMOGLOBIN 29.9 pg (27.0-33.0); MEAN CORPUSCULAR HGB CONC 31.9 g/dl (32.0-36.5); MEAN CORPUSCULAR VOLUME 93.9 fl (80.0-96.0); MONO # 0.7 10^3/uL (0.0-0.8); NEUTROPHILS # 5.6 10^3/uL (1.5-8.5); NEUTROPHILS % 65.8 % (36.0-66.0); PLATELET COUNT, AUTOMATED 248 10^3/uL (150-450); RED BLOOD COUNT 5.28 10^6/uL (4.30-6.10); WHITE BLOOD COUNT 8.5 10^3/uL (4.0-10.0)
[2021-01-30] MEDS ORDERED: FLUT1BLS8 (12:07)
[2021-01-30] MEDS ORDERED: ISOVUE-370 76% 100ML VIAL As Ordered ONE (12:09)
[2021-01-30 12:37] LABS: INR 1.09; PROTHROMBIN TIME 14.5 SECONDS (12.7-14.5)
[2021-01-30 12:39] LABS: PARTIAL THROMBOPLASTIN TIME 21.2 SECONDS (25.9-37.0)
[2021-01-30 13:03] LABS: ALBUMIN 3.6 GM/DL (3.2-5.2); BILIRUBIN,DIRECT 0.1 MG/DL (0.0-0.2); BILIRUBIN,TOTAL 0.5 MG/DL (0.2-1.0)
[2021-01-30] MEDS ORDERED: ACETAMINOPHEN 500 MG TAB PO ONE (13:50)
[2021-01-30 15:30] VITALS: BP 160/70
== END 2021-01-30 16:08 | disposition home or self-care (01) ==
LOC: EDBD 10:32 → M ED 10:32
DX: M94.0 Chondrocostal junction syndrome [Tietze] (principal); I45.10 Unspecified right bundle-branch block; R06.02 Shortness of breath; I11.0 Hypertensive heart disease with heart failure; J44.9 Chronic obstructive pulmonary disease, unspecified; J45.909 Unspecified asthma, uncomplicated; I50.9 Heart failure, unspecified; Z87.09 Personal history of other diseases of the respiratory system; Z99.81 Dependence on supplemental oxygen; Z88.0 Allergy status to penicillin; Z91.012 Allergy to eggs; Z91.018 Allergy to other foods; Z79.899 Other long term (current) drug therapy; Z87.891 Personal history of nicotine dependence
CPT/HCPCS: 36415; 71045; 71275; 80047; 80076; 83880; 84484; 85025; 85610; 85730; 93005; 93041; 94760; 99285; Q9967

== ENCOUNTER 2021-10-12 11:50 | Emergency (ER) | payer MEDICAID, OTHER ==
[~2021-10-12] VITALS: Ht 167.6 cm; Wt 127.6 kg
[2021-10-12] MEDS ORDERED: ISOVUE-370 76% 100ML VIAL As Ordered ONE (13:29)
[2021-10-12 13:32] LABS: BASO # 0.1 10^3/uL (0.0-0.2); BASO % 0.8 % (0.0-1.0); EOS # 0.3 10^3/uL (0.0-0.5); EOS % 3.5 % (0.0-3.0); HEMATOCRIT 48.2 % (42.0-52.0); HEMOGLOBIN 15.4 g/dl (13.5-17.5); LYMPH # 1.4 10^3/uL (1.5-5.0); MEAN CORPUSCULAR VOLUME 93.8 fl (80.0-96.0); MONO # 0.6 10^3/uL (0.0-0.8); MONO % 7.6 % (2.0-8.0); NEUTROPHILS # 5.4 10^3/uL (1.5-8.5); NEUTROPHILS % 69.7 % (36.0-66.0); PLATELET COUNT, AUTOMATED 218 10^3/uL (150-450); RED BLOOD COUNT 5.14 10^6/uL (4.30-6.10); WHITE BLOOD COUNT 7.7 10^3/uL (4.0-10.0)
[2021-10-12 14:03] LABS: CK-MB VALUE MASS 2.8 NG/ML (<3.6); MB/CK RELATIVE INDEX 2.64 (< OR =4)
[2021-10-12 14:11] LABS: ALBUMIN 3.6 GM/DL (3.2-5.2); BILIRUBIN,DIRECT 0.2 MG/DL (0.0-0.2); BILIRUBIN,TOTAL 0.7 MG/DL (0.2-1.0); THYROID STIMULATING HORMONE 0.896 uIU/ML (0.358-3.740); THYROXINE (T4) 11.9 UG/DL (4.5-12.0); TOTAL PROTEIN 7.3 GM/DL (6.4-8.2)
[2021-10-12 15:29] LABS: CK-MB VALUE MASS 2.4 NG/ML (<3.6); MB/CK RELATIVE INDEX 2.42 (< OR =4)
[2021-10-12 16:00] VITALS: BP 127/69
[2021-10-12 16:05] LABS: CK-MB VALUE MASS 2.6 NG/ML (<3.6); MB/CK RELATIVE INDEX 2.77 (< OR =4)
== END 2021-10-12 16:30 | disposition home or self-care (01) ==
LOC: M ED 11:50
DX: R07.89 Other chest pain (principal); M54.9 Dorsalgia, unspecified; I45.10 Unspecified right bundle-branch block; I10 Essential (primary) hypertension; J45.909 Unspecified asthma, uncomplicated; I50.9 Heart failure, unspecified; I71.4 Abdominal aortic aneurysm, without rupture; K21.9 Gastro-esophageal reflux disease without esophagitis; N40.0 Benign prostatic hyperplasia without lower urinary tract symptoms; Z87.19 Personal history of other diseases of the digestive system; Z88.0 Allergy status to penicillin; Z91.012 Allergy to eggs; Z91.018 Allergy to other foods; Z79.899 Other long term (current) drug therapy; Z87.891 Personal history of nicotine dependence
CPT/HCPCS: 36415; 71045; 71275; 80047; 80076; 82550; 82553; 83880; 84436; 84443; 85025; 87040; 87486; 87581; 87633; 87798; 93005; 93041; 94760; 99285; Q9967

== ENCOUNTER → 2021-10-12 | Outpatient (CLI) | payer MEDICARE, MEDICAID, OTHER ==
[~2021-10-12] MED LIST changes: +ALBU2.5V10 INH; -ALBU83IN INH; +FLUT1BLS8
== END ==
LOC: M RAD 11:22
PROVIDERS: ATTEND Physician Assistant
DX: Z53.9 Procedure and treatment not carried out, unspecified reason (principal)

== ENCOUNTER 2022-01-06 18:48 | Emergency (ER) | payer MEDICARE, MEDICAID ==
[~2022-01-06] VITALS: Ht 167.6 cm; Wt 124.3 kg
[2022-01-06] MEDS ORDERED: OMEP-173 (19:25)
[2022-01-06] MEDS ORDERED: ASPI-226 (19:25)
[2022-01-06] MEDS ORDERED: ONDANSETRON 4MG 2ML VIAL As Ordered ONE (19:53)
[2022-01-06] MEDS ORDERED: ONDANSETRON 4MG 2ML VIAL IV ONE (19:55)
[2022-01-06] MEDS ORDERED: NS 1,000 ML IV ONE (20:35)
[2022-01-06 20:37] LABS: BASO % 0.2 % (0.0-1.0); HEMATOCRIT 48.1 % (42.0-52.0); HEMOGLOBIN 15.6 g/dl (13.5-17.5); LYMPH # 0.8 10^3/uL (1.5-5.0); LYMPH % 6.8 % (24.0-44.0); MEAN CORPUSCULAR HEMOGLOBIN 30.3 pg (27.0-33.0); MEAN CORPUSCULAR HGB CONC 32.4 g/dl (32.0-36.5); MEAN CORPUSCULAR VOLUME 93.4 fl (80.0-96.0); MONO # 0.3 10^3/uL (0.0-0.8); MONO % 2.7 % (2.0-8.0); NEUTROPHILS # 10.2 10^3/uL (1.5-8.5); NEUTROPHILS % 89.9 % (36.0-66.0); PLATELET COUNT, AUTOMATED 191 10^3/uL (150-450); RED BLOOD COUNT 5.15 10^6/uL (4.30-6.10); WHITE BLOOD COUNT 11.4 10^3/uL (4.0-10.0)
[2022-01-06] MEDS ORDERED: NS 500 ML IV ONE (21:40)
[2022-01-06 21:56] LABS: ALBUMIN 3.7 G/DL (3.2-5.2); ALKALINE PHOSPHATASE 69 U/L (46-116); ALT/SGPT 33 U/L (7.0-40); AST/SGOT 52 U/L (<34); BILIRUBIN,DIRECT 0.2 MG/DL (<0.4); BILIRUBIN,TOTAL 0.5 MG/DL (0.3-1.2); BLOOD UREA NITROGEN 20 MG/DL (9-23); CALCIUM LEVEL 9.1 MG/DL (8.3-10.6); CARBON DIOXIDE LEVEL 26 MMOL/L (20-31); CHLORIDE LEVEL 105 MMOL/L (98-107); CREATININE FOR GFR 0.82 MG/DL (0.70-1.30); GLOMERULAR FILTRATION RATE > 60.0 (>49); GLUCOSE, FASTING 128 MG/DL (74-106); LIPASE 30 U/L (12-53); POTASSIUM SERUM 5.2 MMOL/L (3.5-5.1); SODIUM LEVEL 141 MMOL/L (136-145); TOTAL PROTEIN 7.4 G/DL (5.7-8.2)
[2022-01-06] MEDS ORDERED: ONDA4TAB6 PO (23:03)
[2022-01-07] MEDS ORDERED: METOCLOPRAMIDE INJ 10MG/2ML VIAL IV ONE (00:50)
[2022-01-07 01:11] VITALS: BP 169/86
[2022-01-07] MEDS ORDERED: ONDANSETRON 4MG ORAL DISINTEGRATING TAB PO ONE (01:35)
== END 2022-01-07 02:10 | disposition home or self-care (01) ==
LOC: EDBD 18:48 → M ED 18:48
DX: A08.4 Viral intestinal infection, unspecified (principal); I50.9 Heart failure, unspecified; N40.0 Benign prostatic hyperplasia without lower urinary tract symptoms; K21.9 Gastro-esophageal reflux disease without esophagitis; J44.9 Chronic obstructive pulmonary disease, unspecified; K57.32 Diverticulitis of large intestine without perforation or abscess without bleeding; Z79.899 Other long term (current) drug therapy; Z88.0 Allergy status to penicillin; Z91.013 Allergy to seafood; Z91.018 Allergy to other foods
CPT/HCPCS: 74176; 80048; 80076; 83690; 85025; 87486; 87581; 87633; 87798; 96361; 96374; 96375; 99285; J2405

== ENCOUNTER → 2022-11-01 | Outpatient (CLI) | payer MEDICARE ==
[~2022-11-01] MED LIST changes: +ASPI-226; +FLAX100017 PO; -FLAX100024 PO; +OMEP-173; +ONDA4TAB6 PO
== END ==
LOC: M RAD 11:30
PROVIDERS: ATTEND Physician Assistant
DX: Z12.2 Encounter for screening for malignant neoplasm of respiratory organs (principal); Z87.891 Personal history of nicotine dependence

== ENCOUNTER 2023-03-23 04:09 | Inpatient (IN) | payer MEDICARE, MEDICAID ==
[~2023-03-23] VITALS: Ht 165.1 cm; Wt 124.8 kg
[~2023-03-23 04:09] MED LIST changes: -ASPI-226; +ASPI-226 PO; -FLUT1BLS8; +FLUT1BLS8 INH
[2023-03-23] MEDS: IPRATROPIUM 0.5MG/ALBUTEROL 2.5MG INH SOL UD 3ML (DUONEB) NEB PRN (06:00)
[2023-03-23 06:09] LABS: BASO # 0.1 10^3/uL (0.0-0.2); BASO % 0.8 % (0.0-1.0); EOS # 0.4 10^3/uL (0.0-0.5); EOS % 5.6 % (0.0-3.0); HEMATOCRIT 44.5 % (42.0-52.0); LYMPH # 1.4 10^3/uL (1.5-5.0); LYMPH % 19.2 % (24.0-44.0); MEAN CORPUSCULAR HEMOGLOBIN 30.4 pg (27.0-33.0); MEAN CORPUSCULAR HGB CONC 31.5 g/dl (32.0-36.5); MEAN CORPUSCULAR VOLUME 96.5 fl (80.0-96.0); MONO # 0.9 10^3/uL (0.0-0.8); MONO % 12.4 % (2.0-8.0); NEUTROPHILS # 4.4 10^3/uL (1.5-8.5); NEUTROPHILS % 61.7 % (36.0-66.0); PLATELET COUNT, AUTOMATED 157 10^3/uL (150-450); RED BLOOD COUNT 4.61 10^6/uL (4.30-6.10); WHITE BLOOD COUNT 7.2 10^3/uL (4.0-10.0)
[2023-03-23 06:36] LABS: ALBUMIN 3.3 G/DL (3.2-5.2); ALKALINE PHOSPHATASE 65 U/L (46-116); ALT/SGPT 20 U/L (7.0-40); AST/SGOT 16 U/L (<34); BILIRUBIN,DIRECT 0.2 MG/DL (<0.4); BILIRUBIN,TOTAL 0.4 MG/DL (0.3-1.2); BLOOD UREA NITROGEN 15 MG/DL (9-23); CALCIUM LEVEL 8.4 MG/DL (8.3-10.6); CARBON DIOXIDE LEVEL 27 MMOL/L (20-31); CHLORIDE LEVEL 109 MMOL/L (98-107); CREATININE FOR GFR 0.87 MG/DL (0.70-1.30); GLOMERULAR FILTRATION RATE > 60.0 (>42); GLUCOSE, FASTING 107 MG/DL (74-106); POTASSIUM SERUM 4.2 MMOL/L (3.5-5.1); SODIUM LEVEL 143 MMOL/L (136-145); TOTAL PROTEIN 6.1 G/DL (5.7-8.2)
[2023-03-23] MEDS ORDERED: CYAN-1 PO (08:29)
[2023-03-23] MEDS ORDERED: VENTAER INH (08:29)
[2023-03-23] MEDS ORDERED: MULT-40 PO (08:29)
[2023-03-23] MEDS ORDERED: VITA100093 PO (08:29)
[2023-03-23] MEDS ORDERED: XALA0.007 OU (08:29)
[2023-03-23] MEDS ORDERED: HOME MED LIST COMPLETE! XX SCH (08:30)
[2023-03-23] MEDS ORDERED: ALBUTEROL SULFATE 2.5MG/0.5ML INH NEB SOLN INH ONE (09:05)
[2023-03-23] MEDS ORDERED: ACETAMINOPHEN TAB 650MG DOSE (2X325MG) PO PRN (09:30)
[2023-03-23 11:05] LABS: INR 1.14; PARTIAL THROMBOPLASTIN TIME 29.4 SECONDS (24.8-34.2); PROTHROMBIN TIME 14.3 SECONDS (12.5-14.5)
[2023-03-23 11:28] LABS: PROCALCITONIN 0.05 ng/ml
[2023-03-23] MEDS: TIOTROPIUM INHALER/CAPSULE (SPIRIVA) INH SCH (11:35)
[2023-03-23] MEDS: ADVAIR HFA 115/21MCG INHALER INH SCH (11:35)
[2023-03-23] MEDS: POTASSIUM CHLORIDE 10MEQ SR TABLET PO SCH (11:49)
[2023-03-23] MEDS: OMEPRAZOLE 20MG CAP PO SCH (11:49)
[2023-03-23] MEDS: CYANOCOBALAMIN 500 MCG TAB PO SCH (11:49)
[2023-03-23] MEDS: DOCUSATE SODIUM 100MG CAPSULE PO SCH (11:50)
[2023-03-23] MEDS: ASPIRIN 81MG ENTERIC TABLET PO SCH (11:50)
[2023-03-23] MEDS: MOM 30ML SUSPENSION UDC PO PRN (11:50)
[2023-03-23] MEDS: methylPREDNISolone 125MG 2ML VIAL IV SCH (11:51)
[2023-03-23] MEDS: PANTOPRAZOLE 40MG VIAL IV SCH (11:51)
[2023-03-23] MEDS: FUROSEMIDE 100MG/10ML VIAL IV ONE (11:52)
[2023-03-23] MEDS: AZITHROMYCIN INJ 500 MG, VIAL MATE ADAPTER 1 EACH in NS 250 ML IV SCH (12:17)
[2023-03-23] MEDS: RIVAROXABAN 10MG TAB (XARELTO) PO SCH (12:27)
[2023-03-23 15:37] VITALS: BP 138/69; TEMP 97.4; O2SAT 96
[2023-03-23] MEDS: FUROSEMIDE 40MG/4ML VIAL IV SCH (16:16)
[2023-03-23] MEDS: MULTIVITAMINS/MINERALS THERAP 1 TAB PO SCH (17:20)
[2023-03-23 20:04] VITALS: BP 136/63; TEMP 99
[2023-03-23] MEDS: LATANOPROST 0.005% OPHTH SOLN 2.5 ML OU SCH (20:21)
[2023-03-23 22:00] VITALS: BP 155/75
[2023-03-23] MEDS: ACETAMINOPHEN TAB 650MG DOSE (2X325MG) PO ONE (22:41)
[2023-03-24 00:12] VITALS: BP 139/63; TEMP 98.5; O2SAT 96
[2023-03-24 03:58] VITALS: BP 102/54; TEMP 97.9; O2SAT 96
[2023-03-24 04:48] LABS: HEMATOCRIT 45.9 % (42.0-52.0); HEMOGLOBIN 15.2 g/dl (13.5-17.5); MEAN CORPUSCULAR HEMOGLOBIN 31.3 pg (27.0-33.0); MEAN CORPUSCULAR HGB CONC 33.1 g/dl (32.0-36.5); MEAN CORPUSCULAR VOLUME 94.6 fl (80.0-96.0); PLATELET COUNT, AUTOMATED 227 10^3/uL (150-450); RED BLOOD COUNT 4.85 10^6/uL (4.30-6.10); WHITE BLOOD COUNT 11.6 10^3/uL (4.0-10.0)
[2023-03-24 05:24] LABS: BLOOD UREA NITROGEN 20 MG/DL (9-23); CALCIUM LEVEL 8.9 MG/DL (8.3-10.6); CARBON DIOXIDE LEVEL 28 MMOL/L (20-31); CHLORIDE LEVEL 102 MMOL/L (98-107); CREATININE FOR GFR 0.79 MG/DL (0.70-1.30); GLOMERULAR FILTRATION RATE > 60.0 (>42); GLUCOSE, FASTING 139 MG/DL (74-106); MAGNESIUM LEVEL 2.1 MG/DL (1.8-2.4); SODIUM LEVEL 140 MMOL/L (136-145)
[2023-03-24 08:00] VITALS: BP 137/66; TEMP 98.1; O2SAT 97
[2023-03-24] MEDS: AZITHROMYCIN 250MG TABLET PO SCH (08:12)
[2023-03-24] MEDS: ALBUTEROL 90 MCG/ACT 8GM HFA INHALER INH PRN (08:36)
[2023-03-24 10:10] VITALS: BP 144/86; TEMP 98.6; O2SAT 93
[2023-03-24 14:30] VITALS: BP 147/86; TEMP 99; O2SAT 93
[2023-03-24 21:20] VITALS: BP 150/86; TEMP 99; O2SAT 93
[2023-03-25 06:00] VITALS: BP 136/59; TEMP 97.9; O2SAT 94
[2023-03-25 07:38] VITALS: O2SAT 94
[2023-03-25 07:51] LABS: HEMATOCRIT 44.6 % (42.0-52.0); HEMOGLOBIN 14.6 g/dl (13.5-17.5); MEAN CORPUSCULAR HEMOGLOBIN 30.9 pg (27.0-33.0); MEAN CORPUSCULAR HGB CONC 32.7 g/dl (32.0-36.5); MEAN CORPUSCULAR VOLUME 94.3 fl (80.0-96.0); PLATELET COUNT, AUTOMATED 214 10^3/uL (150-450); RED BLOOD COUNT 4.73 10^6/uL (4.30-6.10); WHITE BLOOD COUNT 16.2 10^3/uL (4.0-10.0)
[2023-03-25 08:27] LABS: BLOOD UREA NITROGEN 22 MG/DL (9-23); CALCIUM LEVEL 8.8 MG/DL (8.3-10.6); CARBON DIOXIDE LEVEL 32 MMOL/L (20-31); CHLORIDE LEVEL 101 MMOL/L (98-107); GLOMERULAR FILTRATION RATE > 60.0 (>42); GLUCOSE, FASTING 128 MG/DL (74-106); SODIUM LEVEL 140 MMOL/L (136-145)
[2023-03-25] MEDS ORDERED: FLUZONE HIGH DOSE(65YR UP)QUAD/PF 240MCG/0.7ML SYRINGE IM.IMMUN ONE (09:00)
[2023-03-25] MEDS: TORSEMIDE 20 MG TAB PO SCH (10:39)
[2023-03-25] MEDS: predniSONE 50 MG TAB PO SCH (10:41)
[2023-03-25] MEDS: PREVNAR-20 VACCINE 0.5ML SYRINGE IM.IMMUN ONE (10:43)
[2023-03-25 14:30] VITALS: BP 105/81; TEMP 98.8; O2SAT 94
[2023-03-25 19:34] VITALS: O2SAT 97
[2023-03-25 20:12] VITALS: BP 140/94; TEMP 98.8; O2SAT 94
[2023-03-26 03:15] VITALS: O2SAT 84
[2023-03-26 03:21] VITALS: O2SAT 88
[2023-03-26 04:29] VITALS: BP 141/76; TEMP 98.2; O2SAT 93
[2023-03-26 07:50] VITALS: O2SAT 93
[2023-03-26] MEDS: TORSEMIDE 20 MG TAB PO SCH (09:48)
[2023-03-26] MEDS ORDERED: PRED10TA2 PO (10:00)
[2023-03-26] MEDS ORDERED: TORS20TA2 PO (10:00)
== END 2023-03-26 13:37 | disposition home or self-care (01) | DRG 190 ==
LOC: M ED 04:09 → EDBD 04:09 → CANBEDREQ 07:13 → M ED INP 09:28 → M ICU 15:32 → M MSPAV 03-24 10:11 → UNDODISIN 03-24 11:23
PROVIDERS: ADMIT Student in an Organized Health Care Education/Training Program; ATTEND Student in an Organized Health Care Education/Training Program
PROC: B246ZZZ Ultrasonography of Right and Left Heart (ICD-10-PCS; principal; 2023-03-23)
DX: J44.1 Chronic obstructive pulmonary disease with (acute) exacerbation (principal); I50.33 Acute on chronic diastolic (congestive) heart failure; J96.11 Chronic respiratory failure with hypoxia; Z68.42 Body mass index [BMI] 45.0-49.9, adult; H40.9 Unspecified glaucoma; K21.9 Gastro-esophageal reflux disease without esophagitis; E66.01 Morbid (severe) obesity due to excess calories; J06.9 Acute upper respiratory infection, unspecified; I27.20 Pulmonary hypertension, unspecified; Z87.891 Personal history of nicotine dependence; B97.4 Respiratory syncytial virus as the cause of diseases classified elsewhere; Z79.82 Long term (current) use of aspirin; Z79.899 Other long term (current) drug therapy; Z88.0 Allergy status to penicillin; Z95.3 Presence of xenogenic heart valve; Z91.012 Allergy to eggs; Z91.030 Bee allergy status; Z99.81 Dependence on supplemental oxygen

== ENCOUNTER 2023-05-31 10:52 | Day surgery (SDC) | payer MEDICARE, MEDICAID ==
[~2023-05-31] VITALS: Ht 167.6 cm; Wt 121.9 kg
[~2023-05-31 10:52] MED LIST changes: +CYAN-1 PO; +MULT-40 PO; +TORS20TA2 PO; +VITA100093 PO; +XALA0.007 OU
[2023-05-31] MEDS: LIDOCAINE 3.5 % 1ML OPHTH TOPICAL GEL OU ONE (11:32)
[2023-05-31] MEDS: ATROPINE SULFATE 1% OPHTH SOLN 2ML BTL OD SCH (11:32)
[2023-05-31] MEDS: OFLOXACIN 0.3 % (OCUFLOX) OPTH SOL 5ML OD ONE (11:32)
[2023-05-31] MEDS: PHENYLEPHRINE 2.5% OPHTH SOL 2ML OD SCH (11:33)
[2023-05-31] MEDS: TROPICAMIDE 1% OPHTH SOLN 15ML OD SCH (11:33)
[2023-05-31] MEDS: ALBUTEROL SULFATE 2.5MG/0.5ML INH NEB SOLN NEB ONE (11:51)
[2023-05-31] MEDS: PHENYLEPHRINE 10% OPHTH SOL 5ML OD PRN (11:51)
[2023-05-31] MEDS ORDERED: fentaNYL 100 MCG/2 ML INJECTION As Ordered ONE (11:57)
[2023-05-31] MEDS ORDERED: MIDAZOLAM INJ 2MG/2ML VIAL As Ordered ONE (11:57)
[2023-05-31] MEDS: CEFUROXIME 1MG/0.1ML INTRACAMERAL INJ As Ordered ONE (12:09)
[2023-05-31] MEDS: BSS IRRIG/VANCO(10MG)/TOBRA(5MG)/EPINEPH(1:1000-0.5CC)500ML BAG-ORONLY As Ordered ONE (12:12)
[2023-05-31] MEDS: LIDOCAINE 1% SDV 5ML VIAL As Ordered ONE (12:12)
[2023-05-31] MEDS: MOXIFLOXACIN 0.6MG/0.4ML INTRAOCULAR SYRINGE As Ordered ONE (12:12)
[2023-05-31 12:25] VITALS: BP 132/67; TEMP 98; O2SAT 97
== END 2023-05-31 12:53 | disposition home or self-care (01) ==
LOC: M SDC 10:52
PROVIDERS: ATTEND Ophthalmology
DX: H25.11 Age-related nuclear cataract, right eye (principal); I10 Essential (primary) hypertension; I71.40 Abdominal aortic aneurysm, without rupture, unspecified; J44.9 Chronic obstructive pulmonary disease, unspecified; N40.0 Benign prostatic hyperplasia without lower urinary tract symptoms; Z79.82 Long term (current) use of aspirin; Z79.899 Other long term (current) drug therapy; G47.30 Sleep apnea, unspecified; Z88.0 Allergy status to penicillin
CPT/HCPCS: 66984; J0697; J2250; J3010; V2632

== ENCOUNTER 2023-06-07 06:26 | Day surgery (SDC) | payer MEDICARE, MEDICAID ==
[~2023-06-07] VITALS: Ht 167.6 cm; Wt 123.8 kg
[~2023-06-07 06:26] MED LIST changes: +PHENYLEPHRINE 10% OPHTH SOL 5ML OS PRN
[2023-06-07] MEDS: LIDOCAINE 3.5 % 1ML OPHTH TOPICAL GEL OU ONE (06:45)
[2023-06-07] MEDS: OFLOXACIN 0.3 % (OCUFLOX) OPTH SOL 5ML OS ONE (06:45)
[2023-06-07] MEDS ORDERED: MIDAZOLAM INJ 2MG/2ML VIAL As Ordered ONE (07:23)
[2023-06-07] MEDS ORDERED: fentaNYL 100 MCG/2 ML INJECTION As Ordered ONE (07:23)
[2023-06-07] MEDS: ATROPINE SULFATE 1% OPHTH SOLN 2ML BTL OS SCH (07:33)
[2023-06-07] MEDS: TROPICAMIDE 1% OPHTH SOLN 15ML OS SCH (07:33)
[2023-06-07] MEDS: PHENYLEPHRINE 2.5% OPHTH SOL 2ML OS SCH (07:33)
[2023-06-07] MEDS: LIDOCAINE 1% SDV 5ML VIAL As Ordered ONE (08:07)
[2023-06-07] MEDS: CEFUROXIME 1MG/0.1ML INTRACAMERAL INJ As Ordered ONE (08:07)
[2023-06-07] MEDS: MOXIFLOXACIN 0.6MG/0.4ML INTRAOCULAR SYRINGE As Ordered ONE (08:08)
[2023-06-07] MEDS: BSS IRRIG/VANCO(10MG)/TOBRA(5MG)/EPINEPH(1:1000-0.5CC)500ML BAG-ORONLY As Ordered ONE (08:15)
[2023-06-07 08:20] VITALS: BP 132/57; TEMP 97.6; O2SAT 95
== END 2023-06-07 08:33 | disposition home or self-care (01) ==
LOC: M SDC 06:26
PROVIDERS: ATTEND Ophthalmology
DX: H25.12 Age-related nuclear cataract, left eye (principal); G47.30 Sleep apnea, unspecified; I10 Essential (primary) hypertension; I71.40 Abdominal aortic aneurysm, without rupture, unspecified; I35.9 Nonrheumatic aortic valve disorder, unspecified; J44.9 Chronic obstructive pulmonary disease, unspecified; J45.909 Unspecified asthma, uncomplicated; Z91.012 Allergy to eggs; Z91.013 Allergy to seafood; Z88.0 Allergy status to penicillin; Z79.899 Other long term (current) drug therapy; Z79.82 Long term (current) use of aspirin; Z79.51 Long term (current) use of inhaled steroids; Z99.81 Dependence on supplemental oxygen; Z87.891 Personal history of nicotine dependence
CPT/HCPCS: 66984; J2250; J3010; V2632

== ENCOUNTER → 2024-04-22 | Outpatient (CLI) | payer MEDICARE, MEDICAID ==
[~2024-04-22] MED LIST changes: +ONDA-282 PO; -ONDA4TAB6 PO; -PHENYLEPHRINE 10% OPHTH SOL 5ML OS PRN
== END ==
LOC: M RAD 15:10
PROVIDERS: ATTEND Physician Assistant
DX: Z12.2 Encounter for screening for malignant neoplasm of respiratory organs (principal); Z87.891 Personal history of nicotine dependence; J98.11 Atelectasis; J84.10 Pulmonary fibrosis, unspecified; J43.2 Centrilobular emphysema

== ENCOUNTER → 2024-09-11 | Outpatient (CLI) | payer MEDICARE, MEDICAID | LOC: M RAD 15:00 | PROVIDERS: ATTEND Internal Medicine Pulmonary Disease | DX: J43.1 Panlobular emphysema (principal); R05.9 Cough, unspecified ==